=== PATIENT | male | born 1960 | race Two or more races ===

== ENCOUNTER 2020-09-14 12:31 | Inpatient (IN) | payer MEDICAID ==
[~2020-09-14] VITALS: Ht 165.1 cm; Wt 54.9 kg
--- NOTE | 2020-09-14 13:30 | NUR ---
came to er complaints of cough x 3 days chest pain while coughing with shortness of breath
[2020-09-14 13:57] VITALS: BP 120/71
[2020-09-14 14:03] LABS: BASOPHILS % (AUTO) 0.2 % (0.0-2.0); EOSINOPHILS % (AUTO) 0.1 % (0.0-3.0); HEMATOCRIT 29.8 % (42.0-52.0); HEMOGLOBIN 9.7 G/DL (14.2-18.0); MEAN CORPUSCULAR VOLUME 91 FL (80-99); MONOCYTES % (AUTO) 8.8 % (1.0-10.0); NEUTROPHILS % (AUTO) 74.9 % (45.0-75.0); PLATELET COUNT 172 K/UL (150-450); RED BLOOD COUNT 3.28 M/UL (4.70-6.10); RED CELL DISTRIBUTION WIDTH 14.7 % (11.6-14.8); WHITE BLOOD COUNT 6.3 K/UL (4.8-10.8)
[2020-09-14 14:12] LABS: ANION GAP 9 mmol/L (5-15); BLOOD UREA NITROGEN 17 mg/dL (7-18); CALCIUM 7.9 MG/DL (8.5-10.1); CARBON DIOXIDE 23 MMOL/L (21-32); CHLORIDE 99 MMOL/L (98-107); CREATININE 0.9 MG/DL (0.55-1.30); POTASSIUM 3.9 MMOL/L (3.5-5.1); SODIUM 131 MMOL/L (136-145)
[2020-09-14] MEDS ORDERED: Vancomycin 1.5gm/300ml Premix 300 ML IVPB ONE (14:15)
[2020-09-14] MEDS ORDERED: Unasyn 3gm Inj IVPB ONE (14:15)
[2020-09-14 14:21] LABS: ALANINE AMINOTRANSFERASE 26 U/L (12-78); ALBUMIN/GLOBULIN RATIO 0.3 (1.0-2.7); ALKALINE PHOSPHATASE 136 U/L (46-116); ASPARTATE AMINO TRANSFERASE 82 U/L (15-37); BILIRUBIN,TOTAL 0.6 MG/DL (0.2-1.0)
--- NOTE | 2020-09-14 14:30 | NUR ---
iv infusing meds given as orderd
[2020-09-14] MEDS ORDERED: Omnipaque 350 100ml vial INJ PRN (15:00)
[2020-09-14] MEDS ORDERED: Enoxaparin 60mg Inj SUBQ SCH (15:00)
--- NOTE | 2020-09-14 15:04 | Diagnostic Imaging Report ---
Indication: Shortness of breath Technique: One view of the chest Comparison: none Findings: There is a large left pleural effusion. There is there is compressive atelectasis and possibly some infiltrate in the aerated left lung. The right lung pleural space are clear. The left heart border is obscured, heart size indeterminate. Impression: Large left pleural effusion
--- NOTE | 2020-09-14 15:34 | Emergency Room Report ---
History of Present Illness General Chief Complaint: Upper Respiratory Illness Source: Patient Present Illness HPI 59-year-old male with history of type 2 diabetes currently not controlled medication here complaining of 2 weeks of continuous cough and shortness of breath. Patient reports that for the past 2 months he has been experiencing hiccups and some chest pains and the past 2 weeks he has been coughing and has had multiple bouts of nonbloody diarrhea. Patient arrives satting 90% on room air. Denies tobacco smoker history of tobacco smoke. Denies other drug use. Has not taken medication for symptom relief. Has not been tested for coronavirus. 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 Patient History Past Medical History: see triage record Past Surgical History: none Pertinent Family History: none Immunizations: UTD Reviewed Nursing Documentation: PMH: Agreed; PSxH: Agreed Nursing Documentation-PMH Past Medical History: No Stated History Review of Systems All Other Systems: negative except mentioned in HPI Physical Exam Vital Signs Date Time Temp Pulse Resp B/P (MAP) Pulse Ox O2 Delivery O2 Flow Rate FiO2 09/14/20 12:56 98.2 110 21 120/71 (87) 90 Sp02 EP Interpretation: abnormal - O2 sat 90% room air General Appearance: mild distress Head: normocephalic, atraumatic Eyes: bilateral eye normal inspection, bilateral eye PERRL ENT: no angioedema Neck: full range of motion, supple/symm/no masses Respiratory: no respiratory distress, no retraction, no accessory muscle use Cardiovascular #1: no gallop, no murmur Gastrointestinal: soft, no mass Genitourinary: no CVA tenderness Musculoskeletal: back normal, no calf tenderness Neurologic: alert, motor strength/tone normal, oriented x3, sensory intact, responsive, speech normal Psychiatric: judgement/insight normal, memory normal, mood/affect normal, no suicidal/homicidal ideation Skin: no rash Lymphatic: no adenopathy Procedures Critical Care Time Critical Care Time Total critical care time; approximately 31 minutes. Due to a high probability of clinically significant, life threatening deterioration, the patient required my highest level of preparedness to intervene emergently and I personally spent this critical care time directly and personally managing the patient. This critical care time included obtaining a history; examining the patient; pulse oximetry; ordering and reviewing of studies; arranging urgent treatment with development of a management plan; evaluation of patient's response to treatment; frequent reassessment; and, discussions with other providers. This critical care time was performed to assess and manage the high probability of imminent, life-threatening deterioration that could result in multiorgan failure it was exclusive of separate billable procedures and treating other patients and teaching time. Please see MDM section and the rest of the note for further in formation on patient assessment and treatment. Medical Decision Making PA Attestation All diagnosis and treatment plans were discussed and reviewed by my supervising physician Dr. Hernandez Diagnostic Impression: Primary Impression: Hypoxia Additional Impressions: Pleural effusion Coronavirus infection ER Course 59-year-old male with history of type 2 diabetes currently not controlled medication here complaining of 2 weeks of continuous cough and shortness of breath. Patient reports that for the past 2 months he has been experiencing hiccups and some chest pains and the past 2 weeks he has been coughing and has had multiple bouts of nonbloody diarrhea. Patient arrives satting 90% on room air. Denies tobacco smoker history of tobacco smoke. Denies other drug use. Has not taken medication for symptom relief. Has not been tested for coronavirus. Ddx considered but are not limited to: bronchitis, PNA, URI viral, bacterial brochitis, coronavirus, pleural effusion Vital signs: are WNL, pt. is afebrile H&PE are most consistent with: Hypoxia, pleural effusion, coronavirus ORDERS: ER Covid order set, CTA chest ED INTERVENTIONS: Unasyn, vancomycin, dexamethasone, Lovenox Patient was admitted with diagnosis of hypoxia, pleural effusion, coronavirus to Dr Alonso under supervision of Dr.: Hernandez pt stable at time of admission EKG Diagnostic Results Rate: tachycardiac Rhythm: other - Tachycardia ST Segments: no acute changes Other Impression No acute ST changes ASA given to the pt in ED: No Chest X-Ray Diagnostic Results Chest X-Ray Diagnostic Results : Chest X-Ray Ordered: Yes # of Views/Limited/Complete: 1 View Indication: Shortness of Breath EP Interpretation: Yes PA Xray: Interpretation reviewed, by supervising MD, and agrees with findings. Interpretation: other - Left-sided pleural effusion Impression: Other - Left-sided pleural effusion Electronically Signed by: Sachin Wyatt PA-C CT/MRI/US Diagnostic Results CT/MRI/US Diagnostic Results : Imaging Test Ordered: CTA chest Impression Findings: Pulmonary arteries are adequately opacified. No definite intraluminal filling defects or other findings to suggest acute pulmonary embolus are evident. No evidence of pulmonary arterial dilatation or right ventricular dilatation. No evidence of thoracic aortic aneurysm or dissection. Normal caliber and branching anatomy of the great neck vessels. There is a massive left pleural effusion. This demonstrates marked thickening and some enhancement of the of the pleural surface. There is a significant nondependent component anteriorly. This results in compressive atelectasis of significant portions of the left lower lobe and some of the left upper lobe. Multiple focal groundglass opacities are seen scattered throughout the right lung in a mostly peripheral distribution. No right pleural effusion is demonstrated. No right lung mass demonstrated. Prominent but not frankly enlarged right hilar nodes are demonstrated. Numerous prominent mediastinal nodes are demonstrated, particularly numerous in the prevascular space. The esophagus is unremarkable. The thyroid is unremarkable. Included upper abdominal anatomy demonstrates hepatic surface nodularity. Impression: No definite evidence of acute pulmonary embolus or other acute thoracic vascular pathology. Multifocal groundglass opacities in the right lung. This is concerning for multifocal pneumonia, likely viral Massive left pleural effusion. Presumably chronic and likely loculated, given the presence of considerable pleural thickening Considerable left lung parenchymal atelectasis related to the above Numerous and prominent mediastinal lymph nodes may indicate lymphadenopathy. Appearance nonspecific as regards etiology Evidence of hepatic cirrhosis Last Vital Signs Date Time Temp Pulse Resp B/P (MAP) Pulse Ox O2 Delivery O2 Flow Rate FiO2 09/14/20 13:57 98.2 21 120/71 90 09/14/20 13:56 110 Disposition: ADMITTED INPATIENT Condition: Serious Referrals: NOT CHOSEN KASANDRA/,REFERRING (PCP) Sachin Frazier Sep 14, 2020 15:34
--- NOTE | 2020-09-14 15:42 | NUR ---
to ct scan via [facility]
--- NOTE | 2020-09-14 16:36 | Diagnostic Imaging Report ---
ndication: Cough Technique: IV administration nonionic contrast. Spiral acquisitions obtained from the lung bases to the lung apices. Multiplanar and 3-D reconstructions were generated on an integrated workstation. Total dose length product 193 mGycm. CTDIvol(s) 1, 15, 5 mGy. Dose reduction achieved using automated exposure control Comparison: none Findings: Pulmonary arteries are adequately opacified. No definite intraluminal filling defects or other findings to suggest acute pulmonary embolus are evident. No evidence of pulmonary arterial dilatation or right ventricular dilatation. No evidence of thoracic aortic aneurysm or dissection. Normal caliber and branching anatomy of the great neck vessels. There is a massive left pleural effusion. This demonstrates marked thickening and some enhancement of the of the pleural surface. There is a significant nondependent component anteriorly. This results in compressive atelectasis of significant portions of the left lower lobe and some of the left upper lobe. Multiple focal groundglass opacities are seen scattered throughout the right lung in a mostly peripheral distribution. No right pleural effusion is demonstrated. No right lung mass demonstrated. Prominent but not frankly enlarged right hilar nodes are demonstrated. Numerous prominent mediastinal nodes are demonstrated, particularly numerous in the prevascular space. The esophagus is unremarkable. The thyroid is unremarkable. Included upper abdominal anatomy demonstrates hepatic surface nodularity. Impression: No definite evidence of acute pulmonary embolus or other acute thoracic vascular pathology. Multifocal groundglass opacities in the right lung. This is concerning for multifocal pneumonia, likely viral Massive left pleural effusion. Presumably chronic and likely loculated, given the presence of considerable pleural thickening Considerable left lung parenchymal atelectasis related to the above Numerous and prominent mediastinal lymph nodes may indicate lymphadenopathy. Appearance nonspecific as regards etiology Evidence of hepatic cirrhosis The CT scanner at [facility] is accredited by the [employer] and the scans are performed using protocols designed to limit radiation exposure to as low as reasonably achievable to attain images of sufficient resolution adequate for diagnostic evaluation.
[2020-09-14 19:24] VITALS: BP 132/75
--- NOTE | 2020-09-14 21:35 | NUR ---
NURSE NOTES: Called and left Addendum: 09/15/20 at 0645 by Adelso Coates RN Left a message to Dr. Alonso regarding Remdesevir medication needing and ID consult and made him aware about patient's sodium level at 131.
--- NOTE | 2020-09-14 21:35 | NUR ---
NURSE NOTES: Patient received from RONAL iDckson. Patient is awake, alert and oriented x 3. Patient arrived on the floor with no problem. Patient is able to ambulate but showed some weakness. Patient is noted to have no IV access, will attempt to reinsert another IV. Patient is on 2 L nasal cannula satting at 99% with no signs of acute respiratory distress noted. Patient has no complaints as of the moment. Bed is in the lowest position and locked, call light within reach. Will continue to monitor.
[2020-09-14] MEDS ORDERED: guaiFENesin /DM 10ml syrup ORAL PRN (22:15)
[2020-09-14] MEDS ORDERED: Albuterol 90mcg Inhaler 8gm INH PRN (22:15)
[2020-09-14] MEDS ORDERED: DiphenhydrAMINE 50mg/ml Inj IVP PRN (22:15)
[2020-09-14] MEDS ORDERED: Ipratropium Bromide Inhaler INH PRN (22:15)
[2020-09-14] MEDS ORDERED: Azithromycin 250mg tab ORAL ONE (23:30)
[2020-09-15] VITALS: BP 108/62
[2020-09-15 04:00] VITALS: BP 136/68
[2020-09-15] MEDS: NovoLOG Insulin Flexpen SUBQ SCH ×4 (06:02→22:24)
--- NOTE | 2020-09-15 07:35 | NUR ---
NURSE HAND-OFF REPORT: Important Events on Shift:[Patient sodium level is at 131, D-Dimer elevated at 5.2, notified MD. Need ID consult for remdesiver, notified MD] Patient Status: [Stable] Diet: [Regular diet] Pending Orders: [] Pending Results/Labs:[] Pending MD notification:[] Latest Vital Signs: Temperature 96.3 , Pulse 76 , B/P 136 /68 , Respiratory Rate 18 , O2 SAT 97 , , O2 Flow Rate 2.0 . Vital Sign Comment: [] EKG Rhythm: Sinus Rhythm Rhythm change?: N MD Notified?: - MD Response: Latest Harrell Fall Score: 30 Fall Risk: Medium Risk Safety Measures: Call light Within Reach, Bed Alarm , Side Rails Side Rails x1, Bed position Low and Locked. Fall Precautions: Yellow Gown Report given to [RONAL Dickson].
--- NOTE | 2020-09-15 07:38 | NUR ---
CASE MANAGEMENT:REVIEW 59 YR OLD MALE PRESENTED TO ER CC; SOB,HICCUPS AND COUGH SI: COVID PNA. LRG LT PLEURAL EFFUSION 98.3 110 21 120/71 90% ON RA D-DIMER+5.24 IS: IV DECADRON IV AMPICILLIN IV VANCOMYCIN CTA CHEST CHEST XRAY : TO TELEMETRY UNIT DCP: FROM HOME
--- NOTE | 2020-09-15 07:40 | NUR ---
NURSE NOTES: Received report from RONAL Darden. Patient is awake, alert and oriented x 3, ambulatory, and able to make needs known. Patient is able to ambulate but showed some weakness. Patient on NC 2L/M saturating well. IV site patent and intact. PEr previous shift primary MD has been notified regarding sodium and d-dimer level. monitoring engineer in place. Patient has been SR throughout the previous shift. Previous shift endorsed to get ID consult for remdesivir order. Patient has no complaints of pain as of the moment. RN instructed patient to use call light for assistance. Bed is locked and placed in lowest position. Call light within reach. Will continue to monitor
[2020-09-15 08:00] VITALS: BP 128/70
[2020-09-15] MEDS: guaiFENesin ER 600mg tab ORAL SCH ×2 (08:41→17:03)
[2020-09-15] MEDS: Azithromycin 250mg tab ORAL SCH (08:41)
[2020-09-15] MEDS: Enoxaparin 60mg Inj SUBQ SCH (08:41)
[2020-09-15] MEDS: Ascorbic Acid 500mg tab ORAL SCH (08:41)
[2020-09-15] MEDS: Zinc Sulfate 220mg ORAL SCH (08:41)
[2020-09-15] MEDS: Docusate 250mg cap ORAL SCH (08:42)
[2020-09-15] MEDS: Vitamin D 400 units TAB ORAL SCH (08:42)
--- NOTE | 2020-09-15 08:55 | NUR ---
NURSE NOTES: Rn called and spoke with Dr. Bauer regarding the need for ID consult to start remdesivir, Dr. bauer is aware and will put in ID consult himself. Rn also made primary aware of patients latest sodium level of 131 and d-dimer 5.24.
[2020-09-15 09:05] LABS: BASOPHILS % (AUTO) 0.1 % (0.0-2.0); HEMATOCRIT 33.1 % (42.0-52.0); HEMOGLOBIN 10.9 G/DL (14.2-18.0); LYMPHOCYTES % (AUTO) 18.3 % (20.0-45.0); MEAN CORPUSCULAR VOLUME 90 FL (80-99); NEUTROPHILS % (AUTO) 75.5 % (45.0-75.0); PLATELET COUNT 206 K/UL (150-450); RED BLOOD COUNT 3.66 M/UL (4.70-6.10); RED CELL DISTRIBUTION WIDTH 14.4 % (11.6-14.8); WHITE BLOOD COUNT 5.1 K/UL (4.8-10.8)
[2020-09-15 09:41] LABS: ALANINE AMINOTRANSFERASE 20 U/L (12-78); ALBUMIN 1.9 G/DL (3.4-5.0); ALBUMIN/GLOBULIN RATIO 0.3 (1.0-2.7); ALKALINE PHOSPHATASE 113 U/L (46-116); ANION GAP 8 mmol/L (5-15); ASPARTATE AMINO TRANSFERASE 69 U/L (15-37); BILIRUBIN,TOTAL 0.5 MG/DL (0.2-1.0); BLOOD UREA NITROGEN 18 mg/dL (7-18); CALCIUM 8.3 MG/DL (8.5-10.1); CARBON DIOXIDE 21 MMOL/L (21-32); CHLORIDE 105 MMOL/L (98-107); CREATININE 0.7 MG/DL (0.55-1.30); FERRITIN 1278 NG/ML (8-388); LACTATE DEHYDROGENASE 248 U/L (81-234); POTASSIUM 4.2 MMOL/L (3.5-5.1); SODIUM 134 MMOL/L (136-145)
--- NOTE | 2020-09-15 11:39 | History and Physical ---
History of Present Illness General Date patient seen: Sep 15, 2020 Time patient seen: 10:00 Reason for Hospitalization: Upper Respiratory Illness Present Illness HPI 59 years old male with past medical history of diabetes mellitus type 2, presented with complaint of two weeks of continuous dry cough and intermittent shortness of breath. Patient also reported some chest pain with cough and multiple bouts of nonbloody diarrhea. Patient denied COPD /asthma He denied smoking. He denied other drug use. Upon evaluation rapid COVID-19 was positive. Vital signs revealed tachycardia , pulse ox was 90% on RA. Chest x-ray revealed large left pleural effusion. There was compressive atelectasis and possibly some infiltrate in the aerated left lung. The right lung pleural space are clear. CTA of the chest revealed no evidence of acute pulmonary emboli or other acute thoracic vascular pathology. Multifocal ground-glass opacity in the right lung, concerning for multifocal pneumonia. Left lung parenchymal atelectasis probably related to the above. Numerous and prominent mediastinal lymph nodes may indicate lymphadenopathy . Evidence of hepatic cirrhosis No leukocytosis. Hemoglobin 9.7, hematocrit 29.8, platelet count 172. Lactic acid 1.7 Ferritin 1278, LDH 248, CRP 8.3 , D-dimer 5.22. Sodium 131 , stable other electrolytes. Glucose 108. AST 82 ,ALT 26 . Albumin 1.9 In emergency department patient received Lovenox, empiric antibiotic , steroids and admitted for further management. Allergies: Coded Allergies: No Known Allergies (Unverified , 09/14/20) COVID-19 Screening Contact w/high risk pt: No Experienced COVID-19 symptoms?: Yes Coronavirus symptoms experienc: Shortness of Breath Patient History Healthcare decision maker Resuscitation status Advanced Directive on File Review of Systems Constitutional: Reports: weakness Eye: Reports: no symptoms ENT: Reports: no symptoms Respiratory: Reports: see HPI Cardiovascular: Reports: see HPI Gastrointestinal: Reports: see HPI Genitourinary: Reports: no symptoms Musculoskeletal: Reports: no symptoms Skin: Reports: no symptoms Psychiatric: Reports: no symptoms Neurological: Reports: no symptoms Endocrine: Reports: other - DM Hematologic/Lymphatic: Reports: anemia Physical Exam Last 24 Hour Vital Signs Date Time Temp Pulse Resp B/P (MAP) Pulse Ox O2 Delivery O2 Flow Rate FiO2 09/15/20 09:00 Nasal Cannula 2.0 09/15/20 08:00 69 09/15/20 08:00 97.0 78 17 128/70 (89) 98 09/15/20 04:00 96.3 76 18 136/68 (90) 97 09/15/20 04:00 70 09/15/20 00:00 75 09/15/20 00:00 96.6 76 18 108/62 (77) 97 09/14/20 22:07 Nasal Cannula 2.0 09/14/20 19:24 98.5 86 21 132/75 90 09/14/20 13:57 98.2 21 120/71 90 09/14/20 13:56 110 21 09/14/20 12:56 98.2 110 21 120/71 (87) 90 Intake and Output 09/14/20 09/15/20 19:00 07:00 Intake Total 250 ml Output Total 400 ml Balance -150 ml Intake Oral 250 ml Output Urine Total 400 ml # Voids 1 Laboratory Tests Test 09/14/20 13:30 09/15/20 06:01 09/15/20 08:30 09/15/20 11:14 White Blood Count 6.3 K/UL (4.8-10.8) 5.1 K/UL (4.8-10.8) Red Blood Count 3.28 M/UL (4.70-6.10) L 3.66 M/UL (4.70-6.10) L Hemoglobin 9.7 G/DL (14.2-18.0) L 10.9 G/DL (14.2-18.0) L Hematocrit 29.8 % (42.0-52.0) L 33.1 % (42.0-52.0) L Mean Corpuscular Volume 91 FL (80-99) 90 FL (80-99) Mean Corpuscular Hemoglobin 29.6 PG (27.0-31.0) 29.6 PG (27.0-31.0) Mean Corpuscular Hemoglobin Concent 32.5 G/DL (32.0-36.0) 32.8 G/DL (32.0-36.0) Red Cell Distribution Width 14.7 % (11.6-14.8) 14.4 % (11.6-14.8) Platelet Count 172 K/UL (150-450) 206 K/UL (150-450) Mean Platelet Volume 6.4 FL (6.5-10.1) L 6.5 FL (6.5-10.1) Neutrophils (%) (Auto) 74.9 % (45.0-75.0) 75.5 % (45.0-75.0) H Lymphocytes (%) (Auto) 16.0 % (20.0-45.0) L 18.3 % (20.0-45.0) L Monocytes (%) (Auto) 8.8 % (1.0-10.0) 6.0 % (1.0-10.0) Eosinophils (%) (Auto) 0.1 % (0.0-3.0) 0.0 % (0.0-3.0) Basophils (%) (Auto) 0.2 % (0.0-2.0) 0.1 % (0.0-2.0) D-Dimer 5.24 mg/L FEU (0.00-0.49) H Sodium Level 131 MMOL/L (136-145) L 134 MMOL/L (136-145) L Potassium Level 3.9 MMOL/L (3.5-5.1) 4.2 MMOL/L (3.5-5.1) Chloride Level 99 MMOL/L (98-107) 105 MMOL/L (98-107) Carbon Dioxide Level 23 MMOL/L (21-32) 21 MMOL/L (21-32) Anion Gap 9 mmol/L (5-15) 8 mmol/L (5-15) Blood Urea Nitrogen 17 mg/dL (7-18) 18 mg/dL (7-18) Creatinine 0.9 MG/DL (0.55-1.30) 0.7 MG/DL (0.55-1.30) Estimat Glomerular Filtration Rate > 60 mL/min (>60) > 60 mL/min (>60) Glucose Level 108 MG/DL (74-106) H 132 MG/DL (74-106) H Calcium Level 7.9 MG/DL (8.5-10.1) L 8.3 MG/DL (8.5-10.1) L Total Bilirubin 0.6 MG/DL (0.2-1.0) 0.5 MG/DL (0.2-1.0) Aspartate Amino Transf (AST/SGOT) 82 U/L (15-37) H 69 U/L (15-37) H Alanine Aminotransferase (ALT/SGPT) 26 U/L (12-78) 20 U/L (12-78) Alkaline Phosphatase 136 U/L (46-116) H 113 U/L (46-116) Troponin I 0.006 ng/mL (0.000-0.056) Total Protein 8.7 G/DL (6.4-8.2) H 8.6 G/DL (6.4-8.2) H Albumin 2.0 G/DL (3.4-5.0) L 1.9 G/DL (3.4-5.0) L Globulin 6.7 g/dL 6.7 g/dL Albumin/Globulin Ratio 0.3 (1.0-2.7) L 0.3 (1.0-2.7) L POC Whole Blood Glucose 139 MG/DL (74-106) H 146 MG/DL (74-106) H Erythrocyte Sedimentation Rate 112 MM/HR (0-20) H Hemoglobin A1c 6.2 % (4.3-6.0) H Lactic Acid Level 1.70 mmol/L (0.4-2.0) Ferritin 1278 NG/ML (8-388) H Lactate Dehydrogenase 248 U/L (81-234) H C-Reactive Protein, Quantitative 8.3 mg/dL (0.00-0.90) H Carcinoembryonic Antigen Pending Interleukin 6 (IL-6) Pending Calcitonin Level Pending Thyroid Stimulating Hormone (TSH) 1.819 uiU/mL (0.358-3.740) Microbiology Date/Time Source Procedure Growth Status 09/14/20 13:30 Nasopharynx SARS-CoV-2 RdRp Gene Assay - Final Complete Height (Feet): 5 Height (Inches): 5.00 Weight (Pounds): 121 Medications Current Medications Medications (Trade) Dose Ordered Sig/Polo Route PRN Reason Start Time Stop Time Status Last Admin Dose Admin Acetaminophen (Tylenol) 650 mg Q4H PRN ORAL Mild Pain (Pain Scale 1-3) 09/14/20 22:15 10/14/20 22:14 Acetaminophen (Tylenol) 650 mg Q4H PRN ORAL Temp >100.5 09/14/20 22:15 10/14/20 22:14 Albuterol Sulfate (Proventil MDI) 2 puff Q4H PRN INH Shortness of Breath 09/14/20 22:15 12/13/20 22:14 Ascorbic Acid (Vitamin C) 500 mg DAILY ORAL 09/15/20 09:00 10/15/20 08:59 09/15/20 08:41 Azithromycin (Zithromax) 250 mg DAILY ORAL 09/15/20 09:00 09/18/20 09:01 09/15/20 08:41 Dexamethasone Sodium Phosphate (Decadron 10mg/ ml Inj) 6 mg DAILY@1400 IV 09/15/20 14:00 09/24/20 14:01 Dextrose (Dextrose 50%) 25 ml Q30M PRN IV Hypoglycemia 09/14/20 23:00 12/13/20 22:59 Dextrose (Dextrose 50%) 50 ml Q30M PRN IV Hypoglycemia 09/14/20 23:00 12/13/20 22:59 Diphenhydramine HCl (Benadryl) 25 mg EVERY 4 HOURS PRN IVP Itching 09/14/20 22:15 10/14/20 22:14 Docusate Sodium (Colace) 250 mg DAILY ORAL 09/15/20 09:00 10/15/20 08:59 09/15/20 08:42 Enoxaparin Sodium (Lovenox) 60 mg DAILY SUBQ 09/15/20 09:00 12/14/20 08:59 09/15/20 08:41 Guaifenesin (Mucinex ER) 600 mg TWICE A DAY ORAL 09/15/20 09:00 12/14/20 08:59 09/15/20 08:41 Guaifenesin/ Codeine Phosphate (Robitussin with codeine) 5 ml EVERY 4 HOURS PRN ORAL For Cough 09/14/20 22:15 10/14/20 22:14 Guaifenesin/ Dextromethorphan (Robitussin DM Syrup) 5 ml Q4H PRN ORAL For Cough 09/14/20 22:15 12/13/20 22:14 Insulin Aspart (NovoLOG) BEFORE MEALS AND HS SUBQ 09/15/20 06:30 12/14/20 06:29 Iohexol (Omnipaque 350 100ml) 100 ml NOW PRN INJ Radiology Procedure 09/14/20 15:00 09/16/20 14:59 Ipratropium [place] (Atrovent Inh) 1 puffs EVERY 4 HOURS PRN INH Shortness of Breath 09/14/20 22:15 10/14/20 22:14 Multivitamins (Multivitamins) 1 tab DAILY ORAL 09/15/20 09:00 10/15/20 08:59 09/15/20 08:41 Ondansetron HCl (Zofran) 4 mg EVERY 4 HOURS PRN IVP Nausea & Vomiting 09/14/20 22:15 10/14/20 22:14 Vitamin D (Vitamin D) 400 unit DAILY ORAL 09/15/20 09:00 10/15/20 08:59 09/15/20 08:42 Zinc Sulfate (Zinc Sulfate) 220 mg DAILY ORAL 09/15/20 09:00 12/14/20 08:59 09/15/20 08:41 Assessment/Plan Assessment/Plan: ASSESSMENT COVID PNA Hypoxia Large left effusion, possibly loculated, with associated compressive atelectasis Lymphadenopathy r/o possible malignancy Anemia Diarrhea Elevated AST, likely due to liver cirrhosis Hypoalbuminemia DM PLAN OF CARE tele Date of sx onset: 2 wks prior to presentation to ED Positive test: 09/14 rapid COVID 19 O2 NC HFA Dex Day# 2 ( 09/14 -) REM -> per ID recs, elevated AST DVT PPX: Lovenox D dimer 5.24 Trend CRP 8.3 - CTA-> no PE, biut large left ( likely loculated) pl effusion will try to attempt tap abx per ID recs ( consult pending)m currently on Azithro only ESR high a/tussive ptn supportive care : vitamin D, A, , zinc anemia w/up, CEA, stool OB monitor HH with goal to keep Hgb > 7 trend LFT BS management with SSI GI prophyalxis Monitor volumes and renal function Fup with consultants recs FC Discuss GOC case discussed and evaluated by supervising physician Maya Real NP Sep 15, 2020 11:39
[2020-09-15 11:57] VITALS: BP 120/63
--- NOTE | 2020-09-15 12:09 | Consultation ---
History of Present Illness General Date patient seen: Sep 15, 2020 Reason for Hospitalization: Upper Respiratory Illness Present Illness HPI This is a very pleasant 59-year-old male who presented to [facility] with shortness of breath and cough for approximately 2 weeks Covid positive identified with abnormal labs on CT and x-ray abnormal findings indicative of large massive pleural effusion surgery called to evaluate and assist with care patient seen, patient evaluated, chart reviewed. States he still has his cough but respiratory is otherwise stable and unchanged. Denies any abdominal pain. States he does have some chest discomfort. Allergies: Coded Allergies: No Known Allergies (Unverified , 09/14/20) COVID-19 Screening Contact w/high risk pt: No Experienced COVID-19 symptoms?: Yes Coronavirus symptoms experienc: Shortness of Breath Patient History History Provided By: Patient, Medical Record, PMD Healthcare decision maker Resuscitation status Advanced Directive on File Past Medical/Surgical History Past Medical/Surgical History: (1) Pleural effusion (2) Hypoxia (3) Coronavirus infection Review of Systems Review of Symptoms General ROS: no weight loss or fever Psychological ROS: no depression or mood changes, no memory loss Ophthalmic ROS: no visual changes or eye irritation ENT ROS: no nasal congestion, hearing loss, dizziness Allergy and Immunology ROS: no allergic symptoms or urticaria Hematological and Lymphatic ROS: no swollen glands, unusual bleeding or bruising Endocrine ROS: no polyuria, polydipsia, weight changes, temperature intolerance Respiratory ROS: no cough, shortness of breath, or wheezing Cardiovascular ROS: no chest pain or dyspnea on exertion Gastrointestinal ROS: denies abdominal pain, bright red blood in stool. Musculoskeletal ROS: no myalgias or arthralgias Neurological ROS: no TIA or stroke symptoms Dermatological ROS: no new or changing skin lesions, rashes or pruritis Physical Exam Physical Exam General appearance: alert, cooperative, no distress, appears stated age Head: Normocephalic, without obvious abnormality, atraumatic Eyes: conjunctivae/corneas clear. PERRL, EOM's intact. Fundi benign Throat: Lips, mucosa, and tongue normal. Teeth and gums normal Neck: supple, symmetrical, trachea midline, no adenopathy, thyroid: not enlarged, symmetric, no tenderness/mass/nodules, no carotid bruit and no JVD Lungs: Decreased to auscultation bilaterally Heart: regular rate and rhythm, S1, S2 normal, no murmur, click, rub or gallop Abdomen: soft, non-tender. Bowel sounds normal. No masses, no organomegaly Extremities: extremities normal, atraumatic, no cyanosis or edema Pulses: 2+ and symmetric Skin: Skin color, texture, turgor normal. No rashes or lesions Neurologic: Grossly normal Last 24 Hour Vital Signs Date Time Temp Pulse Resp B/P (MAP) Pulse Ox O2 Delivery O2 Flow Rate FiO2 09/15/20 11:57 97.3 75 17 120/63 (82) 96 09/15/20 09:00 Nasal Cannula 2.0 09/15/20 08:00 69 09/15/20 08:00 97.0 78 17 128/70 (89) 98 09/15/20 04:00 96.3 76 18 136/68 (90) 97 09/15/20 04:00 70 09/15/20 00:00 75 09/15/20 00:00 96.6 76 18 108/62 (77) 97 09/14/20 22:07 Nasal Cannula 2.0 09/14/20 19:24 98.5 86 21 132/75 90 09/14/20 13:57 98.2 21 120/71 90 09/14/20 13:56 110 21 09/14/20 12:56 98.2 110 21 120/71 (87) 90 Intake and Output 09/14/20 09/15/20 19:00 07:00 Intake Total 250 ml Output Total 400 ml Balance -150 ml Intake Oral 250 ml Output Urine Total 400 ml # Voids 1 Laboratory Tests Test 09/14/20 13:30 09/15/20 06:01 09/15/20 08:30 09/15/20 11:14 White Blood Count 6.3 K/UL (4.8-10.8) 5.1 K/UL (4.8-10.8) Red Blood Count 3.28 M/UL (4.70-6.10) L 3.66 M/UL (4.70-6.10) L Hemoglobin 9.7 G/DL (14.2-18.0) L 10.9 G/DL (14.2-18.0) L Hematocrit 29.8 % (42.0-52.0) L 33.1 % (42.0-52.0) L Mean Corpuscular Volume 91 FL (80-99) 90 FL (80-99) Mean Corpuscular Hemoglobin 29.6 PG (27.0-31.0) 29.6 PG (27.0-31.0) Mean Corpuscular Hemoglobin Concent 32.5 G/DL (32.0-36.0) 32.8 G/DL (32.0-36.0) Red Cell Distribution Width 14.7 % (11.6-14.8) 14.4 % (11.6-14.8) Platelet Count 172 K/UL (150-450) 206 K/UL (150-450) Mean Platelet Volume 6.4 FL (6.5-10.1) L 6.5 FL (6.5-10.1) Neutrophils (%) (Auto) 74.9 % (45.0-75.0) 75.5 % (45.0-75.0) H Lymphocytes (%) (Auto) 16.0 % (20.0-45.0) L 18.3 % (20.0-45.0) L Monocytes (%) (Auto) 8.8 % (1.0-10.0) 6.0 % (1.0-10.0) Eosinophils (%) (Auto) 0.1 % (0.0-3.0) 0.0 % (0.0-3.0) Basophils (%) (Auto) 0.2 % (0.0-2.0) 0.1 % (0.0-2.0) D-Dimer 5.24 mg/L FEU (0.00-0.49) H Sodium Level 131 MMOL/L (136-145) L 134 MMOL/L (136-145) L Potassium Level 3.9 MMOL/L (3.5-5.1) 4.2 MMOL/L (3.5-5.1) Chloride Level 99 MMOL/L (98-107) 105 MMOL/L (98-107) Carbon Dioxide Level 23 MMOL/L (21-32) 21 MMOL/L (21-32) Anion Gap 9 mmol/L (5-15) 8 mmol/L (5-15) Blood Urea Nitrogen 17 mg/dL (7-18) 18 mg/dL (7-18) Creatinine 0.9 MG/DL (0.55-1.30) 0.7 MG/DL (0.55-1.30) Estimat Glomerular Filtration Rate > 60 mL/min (>60) > 60 mL/min (>60) Glucose Level 108 MG/DL (74-106) H 132 MG/DL (74-106) H Calcium Level 7.9 MG/DL (8.5-10.1) L 8.3 MG/DL (8.5-10.1) L Total Bilirubin 0.6 MG/DL (0.2-1.0) 0.5 MG/DL (0.2-1.0) Aspartate Amino Transf (AST/SGOT) 82 U/L (15-37) H 69 U/L (15-37) H Alanine Aminotransferase (ALT/SGPT) 26 U/L (12-78) 20 U/L (12-78) Alkaline Phosphatase 136 U/L (46-116) H 113 U/L (46-116) Troponin I 0.006 ng/mL (0.000-0.056) Total Protein 8.7 G/DL (6.4-8.2) H 8.6 G/DL (6.4-8.2) H Albumin 2.0 G/DL (3.4-5.0) L 1.9 G/DL (3.4-5.0) L Globulin 6.7 g/dL 6.7 g/dL Albumin/Globulin Ratio 0.3 (1.0-2.7) L 0.3 (1.0-2.7) L POC Whole Blood Glucose 139 MG/DL (74-106) H 146 MG/DL (74-106) H Erythrocyte Sedimentation Rate 112 MM/HR (0-20) H Hemoglobin A1c 6.2 % (4.3-6.0) H Lactic Acid Level 1.70 mmol/L (0.4-2.0) Ferritin 1278 NG/ML (8-388) H Lactate Dehydrogenase 248 U/L (81-234) H C-Reactive Protein, Quantitative 8.3 mg/dL (0.00-0.90) H Carcinoembryonic Antigen Pending Interleukin 6 (IL-6) Pending Calcitonin Level Pending Thyroid Stimulating Hormone (TSH) 1.819 uiU/mL (0.358-3.740) Microbiology Date/Time Source Procedure Growth Status 09/14/20 13:30 Nasopharynx SARS-CoV-2 RdRp Gene Assay - Final Complete Height (Feet): 5 Height (Inches): 5.00 Weight (Pounds): 121 Medications Current Medications Medications (Trade) Dose Ordered Sig/Polo Route PRN Reason Start Time Stop Time Status Last Admin Dose Admin Acetaminophen (Tylenol) 650 mg Q4H PRN ORAL Mild Pain (Pain Scale 1-3) 09/14/20 22:15 10/14/20 22:14 Acetaminophen (Tylenol) 650 mg Q4H PRN ORAL Temp >100.5 09/14/20 22:15 10/14/20 22:14 Albuterol Sulfate (Proventil MDI) 2 puff Q4H PRN INH Shortness of Breath 09/14/20 22:15 12/13/20 22:14 Ascorbic Acid (Vitamin C) 500 mg DAILY ORAL 09/15/20 09:00 10/15/20 08:59 09/15/20 08:41 Azithromycin (Zithromax) 250 mg DAILY ORAL 09/15/20 09:00 09/18/20 09:01 09/15/20 08:41 Dexamethasone Sodium Phosphate (Decadron 10mg/ ml Inj) 6 mg DAILY@1400 IV 09/15/20 14:00 09/24/20 14:01 Dextrose (Dextrose 50%) 25 ml Q30M PRN IV Hypoglycemia 09/14/20 23:00 12/13/20 22:59 Dextrose (Dextrose 50%) 50 ml Q30M PRN IV Hypoglycemia 09/14/20 23:00 12/13/20 22:59 Diphenhydramine HCl (Benadryl) 25 mg EVERY 4 HOURS PRN IVP Itching 09/14/20 22:15 10/14/20 22:14 Docusate Sodium (Colace) 250 mg DAILY ORAL 09/15/20 09:00 10/15/20 08:59 09/15/20 08:42 Enoxaparin Sodium (Lovenox) 60 mg DAILY SUBQ 09/15/20 09:00 12/14/20 08:59 09/15/20 08:41 Guaifenesin (Mucinex ER) 600 mg TWICE A DAY ORAL 09/15/20 09:00 12/14/20 08:59 09/15/20 08:41 Guaifenesin/ Codeine Phosphate (Robitussin with codeine) 5 ml EVERY 4 HOURS PRN ORAL For Cough 09/14/20 22:15 10/14/20 22:14 Guaifenesin/ Dextromethorphan (Robitussin DM Syrup) 5 ml Q4H PRN ORAL For Cough 09/14/20 22:15 12/13/20 22:14 Insulin Aspart (NovoLOG) BEFORE MEALS AND HS SUBQ 09/15/20 06:30 12/14/20 06:29 09/15/20 11:37 Iohexol (Omnipaque 350 100ml) 100 ml NOW PRN INJ Radiology Procedure 09/14/20 15:00 09/16/20 14:59 Ipratropium [place] (Atrovent Inh) 1 puffs EVERY 4 HOURS PRN INH Shortness of Breath 09/14/20 22:15 10/14/20 22:14 Multivitamins (Multivitamins) 1 tab DAILY ORAL 09/15/20 09:00 10/15/20 08:59 09/15/20 08:41 Ondansetron HCl (Zofran) 4 mg EVERY 4 HOURS PRN IVP Nausea & Vomiting 09/14/20 22:15 10/14/20 22:14 Vitamin D (Vitamin D) 400 unit DAILY ORAL 09/15/20 09:00 10/15/20 08:59 09/15/20 08:42 Zinc Sulfate (Zinc Sulfate) 220 mg DAILY ORAL 09/15/20 09:00 12/14/20 08:59 09/15/20 08:41 Assessment/Plan Problem List: (1) Pleural effusion Assessment & Plan: 59 male Covid positive respiratory shortness of breath identified to have massive pleural effusion left. Potentially loculated collection is identified on CT. We will begin with thoracentesis interventional radiology May require a chest tube as needed If significantly loculated or empyema or worsening will discuss with thoracic surgery Continue IV antibiotics per infectious disease Thank you will follow the recommendations pulmonary arteries are adequately opacified. No definite intraluminal filling defects or other findings to suggest acute pulmonary embolus are evident. No evidence of pulmonary arterial dilatation or right ventricular dilatation. No evidence of thoracic aortic aneurysm or dissection. Normal caliber and branching anatomy of the great neck vessels. There is a massive left pleural effusion. This demonstrates marked thickening and some enhancement of the of the pleural surface. There is a significant nondependent component anteriorly. This results in compressive atelectasis of significant portions of the left lower lobe and some of the left upper lobe. Multiple focal groundglass opacities are seen scattered throughout the right lung in a mostly peripheral distribution. No right pleural effusion is demonstrated. No right lung mass demonstrated. Prominent but not frankly enlarged right hilar nodes are demonstrated. Numerous prominent mediastinal nodes are demonstrated, particularly numerous in the prevascular space. The esophagus is unremarkable. The thyroid is unremarkable. Included upper abdominal anatomy demonstrates hepatic surface nodularity. Impression: No definite evidence of acute pulmonary embolus or other acute thoracic vascular pathology. Multifocal groundglass opacities in the right lung. This is concerning for multifocal pneumonia, likely viral Massive left pleural effusion. Presumably chronic and likely loculated, given the presence of considerable pleural thickening Considerable left lung parenchymal atelectasis related to the above Numerous and prominent mediastinal lymph nodes may indicate lymphadenopathy. Appearance nonspecific as regards etiology Evidence of hepatic cirrhosis ICD Codes: J90 - Pleural effusion, not elsewhere classified SNOMED: 37224326 (2) Hypoxia ICD Codes: R09.02 - Hypoxemia SNOMED: 851090761 (3) Coronavirus infection Assessment & Plan: ++ as per ID and pulm ICD Codes: B34.2 - Coronavirus infection, unspecified SNOMED: 368410571 Roman Conway Sep 15, 2020 12:09
--- NOTE | 2020-09-15 13:20 | NUR ---
NURSE NOTES: RN called [facility] and followed up on blood draw for type and cross for BT. Per [employer] they will come up and draw it soon Addendum: 09/15/20 at 1542 by Randolph Jimenez RN wrong patient
--- NOTE | 2020-09-15 13:34 | Diagnostic Imaging Report ---
Indication: Reason For Exam: DVT Technique: Grayscale and duplex images of the bilateral lower extremity veins Comparison: No Findings: Bilaterally, grayscale and duplex images demonstrate no evidence of intraluminal thrombus. Normal phasic Doppler waveforms, demonstrating normal augmentation response and no evidence of valvular insufficiency. Greater saphenous vein(s) and tibial veins are patent. Normal compressibility. Impression: Negative for evidence of lower extremity deep venous thrombosis bilaterally
[2020-09-15] MEDS: dexAMETHasone 10mg/ml Inj IV SCH (13:51)
--- NOTE | 2020-09-15 15:00 | Consultation ---
DATE OF CONSULTATION: 09/15/2020 INFECTIOUS DISEASE CONSULTATION CONSULTING PHYSICIAN: Arian Varner MD PRIMARY ATTENDING PHYSICIAN: Nish Alonso MD REASON FOR CONSULTATION: COVID-19 disease. HISTORY OF PRESENT ILLNESS: This is a 59-year-old male admitted yesterday from home with cough and shortness of breath. The patient has also diarrhea. Symptoms are going on for two weeks. The patient had a positive COVID test in the hospital, never tested before. PAST MEDICAL HISTORY: Likely diabetes. ALLERGIES: No known drug allergies. MEDICATIONS: Getting dexamethasone, azithromycin, guaifenesin, multivitamin, enoxaparin, vitamin D, zinc, Colace, vitamin C, diphenhydramine, Robitussin, albuterol, and Zofran. SOCIAL HISTORY: He is single. He has history of drinking before. REVIEW OF SYSTEMS: Very limited. He has dry cough. PHYSICAL EXAMINATION: VITAL SIGNS: Temperature is 97.3, pulse 75, blood pressure is 120/63, and O2 saturation on 2 L oxygen is 96%. GENERAL APPEARANCE: He seems to have normal weight. HEAD AND NECK: Moist mucous membranes. [place] conjunctivae. HEART: Normal rate. LUNGS: Clear. ABDOMEN: Soft, nontender. EXTREMITIES: No edema. NEUROLOGIC: He is awake and alert. LABORATORY AND DIAGNOSTIC DATA: WBC 5.1, hemoglobin 10.9, hematocrit 33.1, and platelet is 206,000; lymphocyte count is low, 18.3%. Sodium 134, potassium 4.2, chloride 105, bicarb 21, BUN 18, creatinine 0.7, glucose 132. Hemoglobin A1c is slightly elevated at 6.2. LDH 248. Albumin 1.9. COVID test positive. The patient had CT angiogram of the chest and showed no pulmonary emboli; multifocal ground-glass opacities, likely multifocal pneumonia, likely viral; massive left pleural effusion; evidence of hepatic cirrhosis. IMPRESSION: COVID-19 disease. He has some hypoxemia, has radiographic evidence of cirrhosis, left pleural effusion, anemia, lymphocytopenia, and hyperglycemia. RECOMMENDATION: Continue dexamethasone and azithromycin. It seems that in the past 10 days, not eligible for receiving remdesivir. We will follow up the clinical course. At the end of my exam, I thank Dr. Alonso for involving me in the care of this patient. Arian Varner M.D. DR: ADENIKE JOB#: [id number] CC: [place]
[2020-09-15 16:00] VITALS: BP 130/70
[2020-09-15] MEDS ORDERED: Tubing IV Secondary IV ONE (17:52)
--- NOTE | 2020-09-15 19:18 | NUR ---
NURSE HAND-OFF REPORT: Important Events on Shift: US thoracentesis consent obtained Patient Status: stable Diet: regular Pending Orders: thoracentesis Pending Results/Labs:n/a Pending MD notification:n/a Latest Vital Signs: Temperature 97.6 , Pulse 73 , B/P 130 /70 , Respiratory Rate 18 , O2 SAT 97 , , O2 Flow Rate 2.0 . Vital Sign Comment: stable EKG Rhythm: Sinus Rhythm Rhythm change?: N MD Notified?: - MD Response: Latest [place]rell Fall Score: 30 Fall Risk: Medium Risk Safety Measures: Call light Within Reach, Bed Alarm , Side Rails Side Rails x2, Bed position Low and Locked. Fall Precautions: Yellow Gown Report given to RONAL Darden.
--- NOTE | 2020-09-15 19:20 | NUR ---
NURSE NOTES: Patient received from RONAL Dickson. Patient is awake, alert and oriented x 4. Patient is on 2 L Nasal cannula with no signs of acute respiratory distress noted. Patient is able to ambulate but may need assistance. Patient has a 20 gauge on his left AC, patent and flushed. Patient has no complaints as of the moment. Bed is in the lowest position and locked, call light within reach. Will continue to monitor.
[2020-09-15 20:00] VITALS: BP 104/72
[2020-09-15] MEDS ORDERED: Azithromycin 250mg tab ORAL SCH (23:00)
[2020-09-16] VITALS: BP 106/65
[2020-09-16 04:00] VITALS: BP 108/59
[2020-09-16 05:36] LABS: HEMATOCRIT 32.3 % (42.0-52.0); HEMOGLOBIN 10.4 G/DL (14.2-18.0); MEAN CORPUSCULAR VOLUME 93 FL (80-99); PLATELET COUNT 225 K/UL (150-450); RED BLOOD COUNT 3.47 M/UL (4.70-6.10); RED CELL DISTRIBUTION WIDTH 15.3 % (11.6-14.8); WHITE BLOOD COUNT 11.8 K/UL (4.8-10.8)
[2020-09-16 05:44] LABS: INR 1.1 (0.9-1.1)
[2020-09-16 06:06] LABS: ALANINE AMINOTRANSFERASE 24 U/L (12-78); ALBUMIN 1.9 G/DL (3.4-5.0); ALBUMIN/GLOBULIN RATIO 0.3 (1.0-2.7); ALKALINE PHOSPHATASE 134 U/L (46-116); ANION GAP 6 mmol/L (5-15); ASPARTATE AMINO TRANSFERASE 67 U/L (15-37); BILIRUBIN,TOTAL 0.5 MG/DL (0.2-1.0); BLOOD UREA NITROGEN 19 mg/dL (7-18); CALCIUM 8.2 MG/DL (8.5-10.1); CARBON DIOXIDE 24 MMOL/L (21-32); CHLORIDE 106 MMOL/L (98-107); CREATININE 0.7 MG/DL (0.55-1.30); POTASSIUM 4.2 MMOL/L (3.5-5.1); SODIUM 136 MMOL/L (136-145)
[2020-09-16 06:29] LABS: % IRON SATURATION 54 % (15-50); IRON 88 ug/dL (50-175); TOTAL IRON BINDING CAPACITY 163 ug/dL (250-450)
[2020-09-16] MEDS: NovoLOG Insulin Flexpen SUBQ SCH ×4 (06:29→21:00)
--- NOTE | 2020-09-16 07:26 | NUR ---
NURSE HAND-OFF REPORT: Important Events on Shift:[Stool OB still needed to be collected. US guided thoracentesis is scheduled] Patient Status: [Stable] Diet: [Regular diet, NPO for procedure] Pending Orders: [] Pending Results/Labs:[] Pending MD notification:[] Latest Vital Signs: Temperature 96.9 , Pulse 75 , B/P 108 /59 , Respiratory Rate 20 , O2 SAT 95 , , O2 Flow Rate 2.0 . Vital Sign Comment: [] EKG Rhythm: Sinus Rhythm Rhythm change?: N MD Notified?: - MD Response: Latest Harrell Fall Score: 30 Fall Risk: Medium Risk Safety Measures: Call light Within Reach, Bed Alarm , Side Rails Side Rails x2, Bed position Low and Locked. Fall Precautions: Yellow Socks Yellow Gown Report given to [].
--- NOTE | 2020-09-16 07:39 | NUR ---
NURSE NOTES: Pt received from Adelso RN. Pt in bed sleeping, bed low and locked, call light within reach. no distress noted.
--- NOTE | 2020-09-16 07:44 | NUR ---
CASE MANAGEMENT:REVIEW 09/16/20 SI: COVID PNA. ROSAURA INFILTRATES MASSIVE PLEURAL EFFUSION 96.9 67 20 108/59 95% ON 2L/NC WBC+11.8 H/H-10.4/32.3 GLUCOSE+135 IS: IV DECADRON QD AZITHROMYCIN PO QD LOVENOX SQ QD VIT D PO QD ZINC PO QD : TELEMETRY STATUS DCP: FROM HOME PLAN: THORACENTESIS ORDERED
[2020-09-16 08:00] VITALS: BP 115/77
[2020-09-16] MEDS: Enoxaparin 60mg Inj SUBQ SCH (09:00)
--- NOTE | 2020-09-16 09:54 | NUR ---
NURSE NOTES: Re held Gary pt to have thoracentesis today.
[2020-09-16] MEDS: Zinc Sulfate 220mg ORAL SCH (10:05)
[2020-09-16] MEDS: Ascorbic Acid 500mg tab ORAL SCH (10:05)
[2020-09-16] MEDS: Docusate 250mg cap ORAL SCH (10:05)
[2020-09-16] MEDS: guaiFENesin ER 600mg tab ORAL SCH ×2 (10:05→17:29)
[2020-09-16] MEDS: Vitamin D 400 units TAB ORAL SCH (10:05)
[2020-09-16] MEDS: Azithromycin 250mg tab ORAL SCH (10:05)
--- NOTE | 2020-09-16 10:53 | Infectious Diseases Prog Note ---
Assessment/Plan Assessment/Plan antibiotics : azithromycin A 1. covid 19 pneumonia on 2 liters O2 with 92 % saturation 2. diabetes mellitus 3. cirrhosis P 1. continue dexamethasone day 3 2. d/c azithromycin 3. 1 dose ivermectin 4. continue isolation Subjective Constitutional: Denies: fever, chills Respiratory: Reports: shortness of breath, dry cough Gastrointestinal/Abdominal: Reports: nausea, vomiting; Denies: diarrhea Musculoskeletal: Denies: pain Allergies: Coded Allergies: No Known Allergies (Unverified , 09/14/20) Objective Last 24 Hour Vital Signs Date Time Temp Pulse Resp B/P (MAP) Pulse Ox O2 Delivery O2 Flow Rate FiO2 09/16/20 09:00 Nasal Cannula 2.0 09/16/20 08:00 97.7 69 18 115/77 (90) 92 09/16/20 08:00 72 09/16/20 04:00 96.9 67 20 108/59 (75) 95 09/16/20 04:00 75 09/16/20 00:00 74 09/16/20 00:00 96.4 75 20 106/65 (79) 97 09/15/20 21:00 Nasal Cannula 2.0 09/15/20 20:00 97.5 80 24 104/72 (83) 97 09/15/20 20:00 82 09/15/20 16:00 82 09/15/20 16:00 97.6 73 18 130/70 (90) 97 09/15/20 12:07 84 09/15/20 11:57 97.3 75 17 120/63 (82) 96 Height (Feet): 5 Height (Inches): 5.00 Weight (Pounds): 121 Microbiology Date/Time Source Procedure Growth Status 09/14/20 13:30 Nasopharynx SARS-CoV-2 RdRp Gene Assay - Final Complete Laboratory Tests Test 09/15/20 11:14 09/15/20 16:40 09/15/20 21:29 09/16/20 05:00 POC Whole Blood Glucose 146 MG/DL (74-106) H 178 MG/DL (74-106) H 144 MG/DL (74-106) H White Blood Count 11.8 K/UL (4.8-10.8) #H Red Blood Count 3.47 M/UL (4.70-6.10) L Hemoglobin 10.4 G/DL (14.2-18.0) L Hematocrit 32.3 % (42.0-52.0) L Mean Corpuscular Volume 93 FL (80-99) Mean Corpuscular Hemoglobin 29.9 PG (27.0-31.0) Mean Corpuscular Hemoglobin Concent 32.1 G/DL (32.0-36.0) Red Cell Distribution Width 15.3 % (11.6-14.8) H Platelet Count 225 K/UL (150-450) Mean Platelet Volume 6.6 FL (6.5-10.1) Neutrophils (%) (Auto) % (45.0-75.0) Lymphocytes (%) (Auto) % (20.0-45.0) Monocytes (%) (Auto) % (1.0-10.0) Eosinophils (%) (Auto) % (0.0-3.0) Basophils (%) (Auto) % (0.0-2.0) Prothrombin Time 12.0 SEC (9.30-11.50) H Prothromb Time International Ratio 1.1 (0.9-1.1) Sodium Level 136 MMOL/L (136-145) Potassium Level 4.2 MMOL/L (3.5-5.1) Chloride Level 106 MMOL/L (98-107) Carbon Dioxide Level 24 MMOL/L (21-32) Anion Gap 6 mmol/L (5-15) Blood Urea Nitrogen 19 mg/dL (7-18) H Creatinine 0.7 MG/DL (0.55-1.30) Estimat Glomerular Filtration Rate > 60 mL/min (>60) Glucose Level 135 MG/DL (74-106) H Calcium Level 8.2 MG/DL (8.5-10.1) L Iron Level 88 ug/dL (50-175) Total Iron Binding Capacity 163 ug/dL (250-450) L Percent Iron Saturation 54 % (15-50) H Unsaturated Iron Binding 75 ug/dL (112-346) L Total Bilirubin 0.5 MG/DL (0.2-1.0) Aspartate Amino Transf (AST/SGOT) 67 U/L (15-37) H Alanine Aminotransferase (ALT/SGPT) 24 U/L (12-78) Alkaline Phosphatase 134 U/L (46-116) H Total Protein 8.4 G/DL (6.4-8.2) H Albumin 1.9 G/DL (3.4-5.0) L Globulin 6.5 g/dL Albumin/Globulin Ratio 0.3 (1.0-2.7) L Folate 13.4 NG/ML (8.6-58.9) Test 09/16/20 06:29 POC Whole Blood Glucose 121 MG/DL (74-106) H Current Medications Medications (Trade) Dose Ordered Sig/Polo Route PRN Reason Start Time Stop Time Status Last Admin Dose Admin Acetaminophen (Tylenol) 650 mg Q4H PRN ORAL Mild Pain (Pain Scale 1-3) 09/14/20 22:15 10/14/20 22:14 09/15/20 16:32 Acetaminophen (Tylenol) 650 mg Q4H PRN ORAL Temp >100.5 09/14/20 22:15 10/14/20 22:14 Albuterol Sulfate (Proventil MDI) 2 puff Q4H PRN INH Shortness of Breath 09/14/20 22:15 12/13/20 22:14 Ascorbic Acid (Vitamin C) 500 mg DAILY ORAL 09/15/20 09:00 10/15/20 08:59 09/16/20 10:05 Azithromycin (Zithromax) 250 mg DAILY ORAL 09/15/20 09:00 09/18/20 09:01 09/16/20 10:05 Dexamethasone Sodium Phosphate (Decadron 10mg/ ml Inj) 6 mg DAILY@1400 IV 09/15/20 14:00 09/24/20 14:01 09/15/20 13:51 Dextrose (Dextrose 50%) 25 ml Q30M PRN IV Hypoglycemia 09/14/20 23:00 12/13/20 22:59 Dextrose (Dextrose 50%) 50 ml Q30M PRN IV Hypoglycemia 09/14/20 23:00 12/13/20 22:59 Diphenhydramine HCl (Benadryl) 25 mg EVERY 4 HOURS PRN IVP Itching 09/14/20 22:15 10/14/20 22:14 Docusate Sodium (Colace) 250 mg DAILY ORAL 09/15/20 09:00 10/15/20 08:59 09/16/20 10:05 Enoxaparin Sodium (Lovenox) 60 mg DAILY SUBQ 09/15/20 09:00 12/14/20 08:59 09/15/20 08:41 Guaifenesin (Mucinex ER) 600 mg TWICE A DAY ORAL 09/15/20 09:00 12/14/20 08:59 09/16/20 10:05 Guaifenesin/ Codeine Phosphate (Robitussin with codeine) 5 ml EVERY 4 HOURS PRN ORAL For Cough 09/14/20 22:15 10/14/20 22:14 Guaifenesin/ Dextromethorphan (Robitussin DM Syrup) 5 ml Q4H PRN ORAL For Cough 09/14/20 22:15 12/13/20 22:14 Insulin Aspart (NovoLOG) BEFORE MEALS AND HS SUBQ 09/15/20 06:30 12/14/20 06:29 09/15/20 22:24 Iohexol (Omnipaque 350 100ml) 100 ml NOW PRN INJ Radiology Procedure 09/14/20 15:00 09/16/20 14:59 Ipratropium [place] (Atrovent Inh) 1 puffs EVERY 4 HOURS PRN INH Shortness of Breath 09/14/20 22:15 10/14/20 22:14 09/15/20 17:53 Multivitamins (Multivitamins) 1 tab DAILY ORAL 09/15/20 09:00 10/15/20 08:59 09/16/20 10:05 Ondansetron HCl (Zofran) 4 mg EVERY 4 HOURS PRN IVP Nausea & Vomiting 09/14/20 22:15 10/14/20 22:14 Vitamin D (Vitamin D) 400 unit DAILY ORAL 09/15/20 09:00 10/15/20 08:59 09/16/20 10:05 Zinc Sulfate (Zinc Sulfate) 220 mg DAILY ORAL 09/15/20 09:00 12/14/20 08:59 09/16/20 10:05 Gena Caceres MD Sep 16, 2020 10:53
--- NOTE | 2020-09-16 11:15 | Pulmonology Progress Note ---
Subjective Allergies: Coded Allergies: No Known Allergies (Unverified , 09/14/20) Subjective on 2 L o2 via NC reports some cough, no SOB, no CP mild leuk this am ( ? 2/2 steroids) no fevers thoracentesis pending this am upon questioning pt admits to use ETOH excessively in the past Objective Last 24 Hour Vital Signs Date Time Temp Pulse Resp B/P (MAP) Pulse Ox O2 Delivery O2 Flow Rate FiO2 09/16/20 09:00 Nasal Cannula 2.0 09/16/20 08:00 97.7 69 18 115/77 (90) 92 09/16/20 08:00 72 09/16/20 04:00 96.9 67 20 108/59 (75) 95 09/16/20 04:00 75 09/16/20 00:00 74 09/16/20 00:00 96.4 75 20 106/65 (79) 97 09/15/20 21:00 Nasal Cannula 2.0 09/15/20 20:00 97.5 80 24 104/72 (83) 97 09/15/20 20:00 82 09/15/20 16:00 82 09/15/20 16:00 97.6 73 18 130/70 (90) 97 09/15/20 12:07 84 09/15/20 11:57 97.3 75 17 120/63 (82) 96 Intake and Output 09/15/20 09/16/20 19:00 07:00 Intake Total 800 ml Output Total 300 ml 500 ml Balance 500 ml -500 ml Intake Oral 800 ml Output Urine Total 300 ml 500 ml # Voids 1 3 General Appearance: no acute distress HEENT: normocephalic, atraumatic, anicteric, mucous membranes moist, PERRL, other - O2 2 L via NC Respiratory: decreased breath sounds Cardiovascular: normal rate, regular rhythm Abdomen: soft, non tender Extremities: no edema, pedal pulses normal Skin: other - BLE reddishn/brown hyperpigmentation 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 II-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 grossly normal, no motor/sensory deficits, alert, oriented x 3, responsive Musculoskeletal: normal muscle bulk Microbiology Date/Time Source Procedure Growth Status 09/14/20 13:30 Nasopharynx SARS-CoV-2 RdRp Gene Assay - Final Complete Laboratory Tests 09/15/20 11:14: POC Whole Blood Glucose 146H 09/15/20 16:40: POC Whole Blood Glucose 178H 09/15/20 21:29: POC Whole Blood Glucose 144H 09/16/20 05:00: White Blood Count 11.8#H, Red Blood Count 3.47L, Hemoglobin 10.4L, Hematocrit 32.3L, Mean Corpuscular Volume 93, Mean Corpuscular Hemoglobin 29.9, Mean Corpuscular Hemoglobin Concent 32.1, Red Cell Distribution Width 15.3H, Platelet Count 225, Mean Platelet Volume 6.6, Neutrophils (%) (Auto) , Lymphocytes (%) (Auto) , Monocytes (%) (Auto) , Eosinophils (%) (Auto) , Basophils (%) (Auto) , Prothrombin Time 12.0H, Prothromb Time International Ratio 1.1, Sodium Level 136, Potassium Level 4.2, Chloride Level 106, Carbon Dioxide Level 24, Anion Gap 6, Blood Urea Nitrogen 19H, Creatinine 0.7, Estimat Glomerular Filtration Rate > 60, Glucose Level 135H, Calcium Level 8.2L, Iron Level 88, Total Iron Binding Capacity 163L, Percent Iron Saturation 54H, Unsaturated Iron Binding 75L, Total Bilirubin 0.5, Aspartate Amino Transf (AST/SGOT) 67H, Alanine Aminotransferase (ALT/SGPT) 24, Alkaline Phosphatase 134H, Total Protein 8.4H, Albumin 1.9L, Globulin 6.5, Albumin/Globulin Ratio 0.3L, Folate 13.4 09/16/20 06:29: POC Whole Blood Glucose 121H Current Medications Medications (Trade) Dose Ordered Sig/Polo Route PRN Reason Start Time Stop Time Status Last Admin Dose Admin Acetaminophen (Tylenol) 650 mg Q4H PRN ORAL Mild Pain (Pain Scale 1-3) 09/14/20 22:15 10/14/20 22:14 09/15/20 16:32 Acetaminophen (Tylenol) 650 mg Q4H PRN ORAL Temp >100.5 09/14/20 22:15 10/14/20 22:14 Albuterol Sulfate (Proventil MDI) 2 puff Q4H PRN INH Shortness of Breath 09/14/20 22:15 12/13/20 22:14 Ascorbic Acid (Vitamin C) 500 mg DAILY ORAL 09/15/20 09:00 10/15/20 08:59 09/16/20 10:05 Dexamethasone Sodium Phosphate (Decadron 10mg/ ml Inj) 6 mg DAILY@1400 IV 09/15/20 14:00 09/24/20 14:01 09/15/20 13:51 Dextrose (Dextrose 50%) 25 ml Q30M PRN IV Hypoglycemia 09/14/20 23:00 12/13/20 22:59 Dextrose (Dextrose 50%) 50 ml Q30M PRN IV Hypoglycemia 09/14/20 23:00 12/13/20 22:59 Diphenhydramine HCl (Benadryl) 25 mg EVERY 4 HOURS PRN IVP Itching 09/14/20 22:15 10/14/20 22:14 Docusate Sodium (Colace) 250 mg DAILY ORAL 09/15/20 09:00 10/15/20 08:59 09/16/20 10:05 Enoxaparin Sodium (Lovenox) 60 mg DAILY SUBQ 09/15/20 09:00 12/14/20 08:59 09/15/20 08:41 Guaifenesin (Mucinex ER) 600 mg TWICE A DAY ORAL 09/15/20 09:00 12/14/20 08:59 09/16/20 10:05 Guaifenesin/ Codeine Phosphate (Robitussin with codeine) 5 ml EVERY 4 HOURS PRN ORAL For Cough 09/14/20 22:15 10/14/20 22:14 Guaifenesin/ Dextromethorphan (Robitussin DM Syrup) 5 ml Q4H PRN ORAL For Cough 09/14/20 22:15 12/13/20 22:14 Insulin Aspart (NovoLOG) BEFORE MEALS AND HS SUBQ 09/15/20 06:30 12/14/20 06:29 09/15/20 22:24 Iohexol (Omnipaque 350 100ml) 100 ml NOW PRN INJ Radiology Procedure 09/14/20 15:00 09/16/20 14:59 Ipratropium [place] (Atrovent Inh) 1 puffs EVERY 4 HOURS PRN INH Shortness of Breath 09/14/20 22:15 10/14/20 22:14 09/15/20 17:53 Ivermectin (StromectoL) 12 mg ONCE ONCE ORAL 09/16/20 12:00 09/16/20 12:01 Multivitamins (Multivitamins) 1 tab DAILY ORAL 09/15/20 09:00 10/15/20 08:59 09/16/20 10:05 Ondansetron HCl (Zofran) 4 mg EVERY 4 HOURS PRN IVP Nausea & Vomiting 09/14/20 22:15 10/14/20 22:14 Vitamin D (Vitamin D) 400 unit DAILY ORAL 09/15/20 09:00 10/15/20 08:59 09/16/20 10:05 Zinc Sulfate (Zinc Sulfate) 220 mg DAILY ORAL 09/15/20 09:00 12/14/20 08:59 09/16/20 10:05 Assessment/Plan Assessment/Plan ASSESSMENT COVID PNA Hypoxia Large left effusion, possibly loculated, with associated compressive atelectasis Lymphadenopathy r/o possible malignancy Anemia Diarrhea Elevated AST, likely due to liver cirrhosis Hypoalbuminemia DM hx of ETOH PLAN OF CARE tele Date of sx onset: 2 wks prior to presentation to ED Positive test: 09/14 rapid COVID 19 O2 2 L NC HFA Dex Day# 3 ( 09/14 -) REM -> per ID recs, elevated AST -hold for now s/p Ivermectin DVT PPX: Lovenox D dimer 5.24 Trend CRP 8.3 - CTA-> no PE, biut large left ( likely loculated) pl effusion thoracentesis pending ( for diagnostic and therapeutic reasons) no abx as per ID recs a/tussive ptn supportive care : vitamin D, A, , zinc anemia w/up, CEA-5.6 stool OB ESR high monitor HH with goal to keep Hgb > 7 trend LFT-AST trending down BS management with SSI GI prophylaxis Monitor volumes and renal function Fup with consultants recs FC Discuss GOC case discussed and evaluated by supervising physician Maya Real NP Sep 16, 2020 11:15
[2020-09-16 12:00] VITALS: BP 102/55
[2020-09-16] MEDS: dexAMETHasone 10mg/ml Inj IV SCH (14:52)
--- NOTE | 2020-09-16 15:12 | Pre-Procedure Note/Attestation ---
Pre-Procedure Note/Attestation Complete Prior to Procedure Planned Procedure: left Procedure Narrative: Thoracentesis Indications for Procedure Pre-Operative Diagnosis: Pleural effusion Attestation I attest that I discussed the nature of the procedure; its benefits; risks and complications; and alternatives (and the risks and benefits of such alternatives), prior to the procedure, with the patient (or the patient's legal inbound call center representative). I attest that, if there was a reasonable possibility of needing a blood gaona sfusion, the patient (or the patient's legal inbound call center representative) was given the [facility] standardized written summary, pursuant to the Ganesh Deisi Blood Safety Act ([place] Health and Safety Code # 1645, as amended). I attest that I re-evaluated the patient just prior to the surgery and that there has been no change in the patient's H&P, except as documented below: Talon Saleh MD Sep 16, 2020 15:12
--- NOTE | 2020-09-16 15:13 | Brief Operative Note ---
Immediate Post Operative Note Operative Note Pre-op Diagnosis: Pleural effusion Procedure: thoracentesis L Post-op Diagnosis: same Surgeon: Roland Hardy Anesthesia: local Specimen: none Complications: none Fluids: none Implant(s) used?: No Talon Hardy MD Sep 16, 2020 15:13
[2020-09-16 16:00] VITALS: BP 115/70
--- NOTE | 2020-09-16 16:03 | Diagnostic Imaging Report ---
Indications: Pleural effusion Technique: Ultrasound used to localize optimal puncture site. Sterile prepping and draping left chest. Local anesthesia with 1% lidocaine. Under real-time ultrasound guidance, puncture pleural space using thoracentesis needle. Stylet removed. Catheter placed to vacuum bottle suction. Total 150 milliliters of cloudy yellow fluid aspirated. Specimen sent to the lab. Patient tolerated procedure well, without immediate complication. Findings: Initial sonography demonstrates heavily loculated septated fluid. Followup sonography demonstrates persistent pleural fluid Impression: Successful ultrasound-guided thoracentesis, yielding 150 milliliters of fluid. Note that fluid was incompletely evacuated, presumably due to collection being heavily loculated
--- NOTE | 2020-09-16 16:38 | Surgery Progress Note ---
Surgery Progress Note Subjective Additional Comments leukocytosis lf'ts elevated thora today Objective Last 24 Hour Vital Signs Date Time Temp Pulse Resp B/P (MAP) Pulse Ox O2 Delivery O2 Flow Rate FiO2 09/16/20 16:00 76 09/16/20 16:00 96.1 78 20 115/70 (85) 96 09/16/20 12:00 97.5 73 20 102/55 (71) 94 09/16/20 12:00 79 09/16/20 09:00 Nasal Cannula 2.0 09/16/20 08:00 97.7 69 18 115/77 (90) 92 09/16/20 08:00 72 09/16/20 04:00 96.9 67 20 108/59 (75) 95 09/16/20 04:00 75 09/16/20 00:00 74 09/16/20 00:00 96.4 75 20 106/65 (79) 97 09/15/20 21:00 Nasal Cannula 2.0 09/15/20 20:00 97.5 80 24 104/72 (83) 97 09/15/20 20:00 82 I&O Intake and Output 09/15/20 09/16/20 19:00 07:00 Intake Total 800 ml Output Total 300 ml 500 ml Balance 500 ml -500 ml Intake Oral 800 ml Output Urine Total 300 ml 500 ml # Voids 1 3 Cardiovascular: RSR Respiratory: decreased breath sounds Abdomen: soft, non-tender, present bowel sounds Extremities: no tenderness, no cyanosis Laboratory Tests Test 09/15/20 16:40 09/15/20 21:29 09/16/20 05:00 09/16/20 06:29 POC Whole Blood Glucose 178 MG/DL (74-106) H 144 MG/DL (74-106) H 121 MG/DL (74-106) H White Blood Count 11.8 K/UL (4.8-10.8) #H Red Blood Count 3.47 M/UL (4.70-6.10) L Hemoglobin 10.4 G/DL (14.2-18.0) L Hematocrit 32.3 % (42.0-52.0) L Mean Corpuscular Volume 93 FL (80-99) Mean Corpuscular Hemoglobin 29.9 PG (27.0-31.0) Mean Corpuscular Hemoglobin Concent 32.1 G/DL (32.0-36.0) Red Cell Distribution Width 15.3 % (11.6-14.8) H Platelet Count 225 K/UL (150-450) Mean Platelet Volume 6.6 FL (6.5-10.1) Neutrophils (%) (Auto) % (45.0-75.0) Lymphocytes (%) (Auto) % (20.0-45.0) Monocytes (%) (Auto) % (1.0-10.0) Eosinophils (%) (Auto) % (0.0-3.0) Basophils (%) (Auto) % (0.0-2.0) Prothrombin Time 12.0 SEC (9.30-11.50) H Prothromb Time International Ratio 1.1 (0.9-1.1) Sodium Level 136 MMOL/L (136-145) Potassium Level 4.2 MMOL/L (3.5-5.1) Chloride Level 106 MMOL/L (98-107) Carbon Dioxide Level 24 MMOL/L (21-32) Anion Gap 6 mmol/L (5-15) Blood Urea Nitrogen 19 mg/dL (7-18) H Creatinine 0.7 MG/DL (0.55-1.30) Estimat Glomerular Filtration Rate > 60 mL/min (>60) Glucose Level 135 MG/DL (74-106) H Calcium Level 8.2 MG/DL (8.5-10.1) L Iron Level 88 ug/dL (50-175) Total Iron Binding Capacity 163 ug/dL (250-450) L Percent Iron Saturation 54 % (15-50) H Unsaturated Iron Binding 75 ug/dL (112-346) L Total Bilirubin 0.5 MG/DL (0.2-1.0) Aspartate Amino Transf (AST/SGOT) 67 U/L (15-37) H Alanine Aminotransferase (ALT/SGPT) 24 U/L (12-78) Alkaline Phosphatase 134 U/L (46-116) H Total Protein 8.4 G/DL (6.4-8.2) H Albumin 1.9 G/DL (3.4-5.0) L Globulin 6.5 g/dL Albumin/Globulin Ratio 0.3 (1.0-2.7) L Folate 13.4 NG/ML (8.6-58.9) Test 09/16/20 14:22 09/16/20 16:35 Body Fluid Source Pending Body Fluid Volume Pending Body Fluid Appearance Pending Body Fluid RBC Pending Body Fluid Total Nucleated Cells Pending Body Fluid Polynuclear WBCs (%) Pending Body Fluid Mononuclear WBCs (%) Pending Body Fluid Mesothelial Cells (%) Pending Body Fluid Glucose Pending Body Fluid Total Protein Pending Body Fluid Albumin Pending Body Fluid Lactate Dehydrogenase Pending Body Fluid Comment Pending POC Whole Blood Glucose 168 MG/DL (74-106) H Plan Problems: (1) Pleural effusion Assessment & Plan: 59 male Covid positive respiratory shortness of breath identified to have massive pleural effusion left. Potentially loculated collection is identified on CT. We will begin with thoracentesis interventional radiology May require a chest tube as needed If significantly loculated or empyema or worsening will discuss with thoracic surgery Continue IV antibiotics per infectious disease Thank you will follow the recommendations pulmonary arteries are adequately opacified. No definite intraluminal filling defects or other findings to suggest acute pulmonary embolus are evident. No evidence of pulmonary arterial dilatation or right ventricular dilatation. No evidence of thoracic aortic aneurysm or dissection. Normal caliber and branching anatomy of the great neck vessels. There is a massive left pleural effusion. This demonstrates marked thickening and some enhancement of the of the pleural surface. There is a significant nondependent component anteriorly. This results in compressive atelectasis of significant portions of the left lower lobe and some of the left upper lobe. Multiple focal groundglass opacities are seen scattered throughout the right lung in a mostly peripheral distribution. No right pleural effusion is demonstrated. No right lung mass demonstrated. Prominent but not frankly enlarged right hilar nodes are demonstrated. Numerous prominent mediastinal nodes are demonstrated, particularly numerous in the prevascular space. The esophagus is unremarkable. The thyroid is unremarkable. Included upper abdominal anatomy demonstrates hepatic surface nodularity. Impression: No definite evidence of acute pulmonary embolus or other acute thoracic vascular pathology. Multifocal groundglass opacities in the right lung. This is concerning for multifocal pneumonia, likely viral Massive left pleural effusion. Presumably chronic and likely loculated, given the presence of considerable pleural thickening Considerable left lung parenchymal atelectasis related to the above Numerous and prominent mediastinal lymph nodes may indicate lymphadenopathy. Appearance nonspecific as regards etiology Evidence of hepatic cirrhosis Ultrasound used to localize optimal puncture site. Sterile prepping and draping left chest. Local anesthesia with 1% lidocaine. Under real-time ultrasound guidance, puncture pleural space using thoracentesis needle. Stylet removed. Catheter placed to vacuum bottle suction. Total 150 milliliters of cloudy yellow fluid aspirated. Specimen sent to the lab. Patient tolerated procedure well, without immediate complication. Findings: Initial sonography demonstrates heavily loculated septated fluid. Followup sonography demonstrates persistent pleural fluid Impression: Successful ultrasound-guided thoracentesis, yielding 150 milliliters of fluid. Note that fluid was incompletely evacuated, presumably due to collection being heavily loculated (2) Hypoxia (3) Coronavirus infection Assessment & Plan: ++ as per ID and pulm Roman Conway Sep 16, 2020 16:38
--- NOTE | 2020-09-16 16:59 | Diagnostic Imaging Report ---
Indication: Shortness of breath, status post thoracentesis Technique: One view of the chest Comparison: 09/14/2020 Findings: Less optimal inspiration currently. There is questionable slightly decreased left pleural effusion. No pneumothorax. There is crowding of bronchovascular markings on the right and possibly some perihilar infiltrate. Impression: Equivocally decreased left pleural effusion, status post thoracentesis. No radiographically evident complication Questionable new right lung infiltrates
--- NOTE | 2020-09-16 19:15 | NUR ---
NURSE HAND-OFF REPORT: Important Events on Shift:[No remarkable events, 150 cc taken out via thoracentesis. complains of weak cough, tolerating 4 liters NC well.] Patient Status: [Full code] Diet: [Regular] Pending Orders: [] Pending Results/Labs:[] Pending MD notification:[] Latest Vital Signs: Temperature 96.1 , Pulse 78 , B/P 115 /70 , Respiratory Rate 20 , O2 SAT 96 , , O2 Flow Rate 2.0 . Vital Sign Comment: [] EKG Rhythm: Sinus Rhythm Rhythm change?: N MD Notified?: - MD Response: Latest Harrell Fall Score: 30 Fall Risk: Medium Risk Safety Measures: Call light Within Reach, Bed Alarm , Side Rails Side Rails x2, Bed position Low and Locked. Fall Precautions: Yellow Socks Yellow Gown Report given to [Ramirez VILLEDA].
--- NOTE | 2020-09-16 19:28 | NUR ---
NURSE NOTES: Patient received from Tanai RN. Patient in stable condition. Alert and oriented x4 faroese speaking. No s/s of pain and no s/s of respiratory distress. On 4 Liters of oxygen via nasal cannula. IV site patent and intact on left AC 22G. Bed in lowest position and locked. Bed alarm on.
[2020-09-16 20:00] VITALS: BP 119/69
[2020-09-16] MEDS: guaiFENesin w/Codeine 5ml Liq ud ORAL PRN (23:22)
[2020-09-17] VITALS: BP 126/77
[2020-09-17 04:00] VITALS: BP 129/77
[2020-09-17 05:22] LABS: HEMOGLOBIN 11.3 G/DL (14.2-18.0); MEAN CORPUSCULAR VOLUME 91 FL (80-99); PLATELET COUNT 243 K/UL (150-450); RED BLOOD COUNT 3.74 M/UL (4.70-6.10); RED CELL DISTRIBUTION WIDTH 14.7 % (11.6-14.8); WHITE BLOOD COUNT 10.9 K/UL (4.8-10.8)
[2020-09-17 06:03] LABS: ANION GAP 7 mmol/L (5-15); BLOOD UREA NITROGEN 16 mg/dL (7-18); CALCIUM 8.6 MG/DL (8.5-10.1); CARBON DIOXIDE 23 MMOL/L (21-32); CHLORIDE 105 MMOL/L (98-107); CREATININE 0.8 MG/DL (0.55-1.30); POTASSIUM 4.1 MMOL/L (3.5-5.1); SODIUM 135 MMOL/L (136-145)
[2020-09-17] MEDS: NovoLOG Insulin Flexpen SUBQ SCH ×4 (06:30→21:29)
[2020-09-17] MEDS: guaiFENesin w/Codeine 5ml Liq ud ORAL PRN ×2 (07:02→11:26)
--- NOTE | 2020-09-17 07:18 | NUR ---
NURSE HAND-OFF REPORT: Important Events on Shift:[OB stool pending] Patient Status: [Stable, FC, Alert awake oriented x4] Diet: [Reg Diet] Pending Orders: [] Pending Results/Labs:[] Pending MD notification:[] Latest Vital Signs: Temperature 97.7 , Pulse 77 , B/P 129 /77 , Respiratory Rate 18 , O2 SAT 95 , , O2 Flow Rate 3.0 . Vital Sign Comment: [] EKG Rhythm: Sinus Rhythm Rhythm change?: N MD Notified?: - MD Response: Latest Harrell Fall Score: 30 Fall Risk: Medium Risk Safety Measures: Call light Within Reach, Bed Alarm , Side Rails Side Rails x2, Bed position Low and Locked. Fall Precautions: Yellow Socks Yellow Gown Report given to [Sandra VILLEDA].
--- NOTE | 2020-09-17 07:28 | NUR ---
NURSE NOTES: Received report from Neetu/RN. Pt in bed sleeping, on 4L nasal cannula, no distress or SOB noted. Able to make needs known. IV on right FA 20G, SL, patent and clean. Bed in the lowest position and locked, call light within reach, encouraged to use when needed. Side rail up X3. Will continue plan of care.
[2020-09-17 08:00] VITALS: BP 109/73
[2020-09-17] MEDS: Zinc Sulfate 220mg ORAL SCH (08:41)
[2020-09-17] MEDS: Ascorbic Acid 500mg tab ORAL SCH (08:42)
[2020-09-17] MEDS: Vitamin D 400 units TAB ORAL SCH (08:42)
[2020-09-17] MEDS: Docusate 250mg cap ORAL SCH (08:42)
[2020-09-17] MEDS: guaiFENesin ER 600mg tab ORAL SCH ×2 (08:42→18:06)
[2020-09-17] MEDS: Enoxaparin 60mg Inj SUBQ SCH (08:43)
--- NOTE | 2020-09-17 08:55 | Pulmonology Progress Note ---
Subjective Allergies: Coded Allergies: No Known Allergies (Unverified , 09/14/20) Subjective on 3 L O2 via NC reports some cough, no SOB, no CP s/p thoracentesis 09/16 -150 ml Objective Last 24 Hour Vital Signs Date Time Temp Pulse Resp B/P (MAP) Pulse Ox O2 Delivery O2 Flow Rate FiO2 09/17/20 08:00 97.7 77 18 109/73 (85) 97 09/17/20 04:00 97.7 78 18 129/77 (94) 95 09/17/20 04:00 77 09/17/20 00:00 79 09/17/20 00:00 97.5 85 19 126/77 (93) 100 09/16/20 21:00 Nasal Cannula 3.0 09/16/20 20:00 90 09/16/20 20:00 97.7 85 19 119/69 (86) 96 09/16/20 16:00 76 09/16/20 16:00 96.1 78 20 115/70 (85) 96 09/16/20 12:00 97.5 73 20 102/55 (71) 94 09/16/20 12:00 79 09/16/20 09:00 Nasal Cannula 2.0 Intake and Output 09/16/20 09/17/20 19:00 07:00 Intake Total 400 ml Output Total 500 ml 640 ml Balance -100 ml -640 ml Intake Oral 400 ml Output Urine Total 500 ml 640 ml General Appearance: no acute distress HEENT: normocephalic, atraumatic, anicteric, mucous membranes moist, PERRL, other - O2 3 L via NC Respiratory: decreased breath sounds Cardiovascular: normal rate, regular rhythm Abdomen: soft, non tender Extremities: no edema, pedal pulses normal Skin: other - BLE reddishn/brown hyperpigmentation 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 II-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 grossly normal, no motor/sensory deficits, alert, oriented x 3, responsive Musculoskeletal: normal muscle bulk Microbiology Date/Time Source Procedure Growth Status 09/16/20 14:22 Body Fluid Pulmonary Gram Stain - Final Resulted 09/16/20 14:22 Body Fluid Pulmonary Body Fluid Culture - Preliminary NO GROWTH Resulted 09/15/20 08:40 Blood Blood Culture - Preliminary NO GROWTH AFTER 24 HOURS Resulted 09/15/20 08:30 Blood Blood Culture - Preliminary NO GROWTH AFTER 24 HOURS Resulted 09/14/20 13:30 Nasopharynx SARS-CoV-2 RdRp Gene Assay - Final Complete Laboratory Tests 09/16/20 14:22: Body Fluid Source Thoracentesis, Body Fluid Volume 24, Body Fluid Appearance Yellow hazy, Body Fluid RBC 904, Body Fluid Total Nucleated Cells 0, Body Fluid Polynuclear WBCs (%) , Body Fluid Mononuclear WBCs (%) , Body Fluid Mesothelial Cells (%) , Body Fluid Glucose [Pending], Body Fluid Total Protein [Pending], Body Fluid Albumin [Pending], Body Fluid Lactate Dehydrogenase [Pending], Body Fluid Comment 09/16/20 16:35: POC Whole Blood Glucose 168H 09/16/20 19:53: POC Whole Blood Glucose [Pending] 09/17/20 04:00: White Blood Count 10.9H, Red Blood Count 3.74L, Hemoglobin 11.3L, Hematocrit 34.0L, Mean Corpuscular Volume 91, Mean Corpuscular Hemoglobin 30.1, Mean Corpuscular Hemoglobin Concent 33.1, Red Cell Distribution Width 14.7, Platelet Count 243, Mean Platelet Volume 6.7, Neutrophils (%) (Auto) , Lymphocytes (%) (Auto) , Monocytes (%) (Auto) , Eosinophils (%) (Auto) , Basophils (%) (Auto) , Differential Total Cells Counted 100, Neutrophils % (Manual) 89H, Lymphocytes % (Manual) 9L, Monocytes % (Manual) 2, Eosinophils % (Manual) 0, Basophils % (Manual) 0, Band Neutrophils 0, Platelet Estimate Adequate, Platelet Morphology Normal, Anisocytosis 1+, Sodium Level 135L, Potassium Level 4.1, Chloride Level 105, Carbon Dioxide Level 23, Anion Gap 7, Blood Urea Nitrogen 16, Creatinine 0.8, Estimat Glomerular Filtration Rate > 60, Glucose Level 130H, Calcium Level 8.6 09/17/20 05:00: POC Whole Blood Glucose 132H Current Medications Medications (Trade) Dose Ordered Sig/Polo Route PRN Reason Start Time Stop Time Status Last Admin Dose Admin Acetaminophen (Tylenol) 650 mg Q4H PRN ORAL Mild Pain (Pain Scale 1-3) 09/14/20 22:15 10/14/20 22:14 09/15/20 16:32 Acetaminophen (Tylenol) 650 mg Q4H PRN ORAL Temp >100.5 09/14/20 22:15 10/14/20 22:14 Albuterol Sulfate (Proventil MDI) 2 puff Q4H PRN INH Shortness of Breath 09/14/20 22:15 12/13/20 22:14 Ascorbic Acid (Vitamin C) 500 mg DAILY ORAL 09/15/20 09:00 10/15/20 08:59 09/17/20 08:42 Dexamethasone Sodium Phosphate (Decadron 10mg/ ml Inj) 6 mg DAILY@1400 IV 09/15/20 14:00 09/24/20 14:01 09/16/20 14:52 Dextrose (Dextrose 50%) 25 ml Q30M PRN IV Hypoglycemia 09/14/20 23:00 12/13/20 22:59 Dextrose (Dextrose 50%) 50 ml Q30M PRN IV Hypoglycemia 09/14/20 23:00 12/13/20 22:59 Diphenhydramine HCl (Benadryl) 25 mg EVERY 4 HOURS PRN IVP Itching 09/14/20 22:15 10/14/20 22:14 Docusate Sodium (Colace) 250 mg DAILY ORAL 09/15/20 09:00 10/15/20 08:59 09/17/20 08:42 Enoxaparin Sodium (Lovenox) 60 mg DAILY SUBQ 09/15/20 09:00 12/14/20 08:59 09/17/20 08:43 Guaifenesin (Mucinex ER) 600 mg TWICE A DAY ORAL 09/15/20 09:00 12/14/20 08:59 09/17/20 08:42 Guaifenesin/ Codeine Phosphate (Robitussin with codeine) 5 ml EVERY 4 HOURS PRN ORAL For Cough 09/14/20 22:15 10/14/20 22:14 09/17/20 07:02 Guaifenesin/ Dextromethorphan (Robitussin DM Syrup) 5 ml Q4H PRN ORAL For Cough 09/14/20 22:15 12/13/20 22:14 Insulin Aspart (NovoLOG) BEFORE MEALS AND HS SUBQ 09/15/20 06:30 12/14/20 06:29 09/16/20 16:45 Ipratropium [place] (Atrovent Inh) 1 puffs EVERY 4 HOURS PRN INH Shortness of Breath 09/14/20 22:15 10/14/20 22:14 09/15/20 17:53 Multivitamins (Multivitamins) 1 tab DAILY ORAL 09/15/20 09:00 10/15/20 08:59 09/17/20 08:41 Ondansetron HCl (Zofran) 4 mg EVERY 4 HOURS PRN IVP Nausea & Vomiting 09/14/20 22:15 10/14/20 22:14 Vitamin D (Vitamin D) 400 unit DAILY ORAL 09/15/20 09:00 10/15/20 08:59 09/17/20 08:42 Zinc Sulfate (Zinc Sulfate) 220 mg DAILY ORAL 09/15/20 09:00 12/14/20 08:59 09/17/20 08:41 Assessment/Plan Assessment/Plan ASSESSMENT COVID PNA Hypoxia Large left effusion, possibly loculated, with associated compressive atelectasis s/p thoracentesis 09/16 -> 150 ml Lymphadenopathy r/o possible malignancy Anemia Diarrhea Elevated AST, likely due to liver cirrhosis Hypoalbuminemia DM hx of ETOH PLAN OF CARE tele Date of sx onset: 2 wks prior to presentation to ED Positive test: 09/14 rapid COVID 19 O2 3 L NC HFA Dex Day# 4( 09/14 -) REM -> per ID recs, elevated AST -hold for now s/p Ivermectin encourage prone position as tolerated DVT PPX: Lovenox D dimer 5.24 Trend CRP 8.3 - CTA-> no PE, but large left ( likely loculated) pl effusion s/p tap 09/16 -> 150 ml ( effusion largely loculated) pleural cx NGTD, fluid analysis pending cytology pending CXR post tap-no PTX no abx as per ID recs a/tussive ptn supportive care : vitamin D, A, , zinc anemia w/up, CEA-5.6 stool OB ESR high monitor HH with goal to keep Hgb > 7 trend LFT-AST trending down BS management with SSI GI prophylaxis Monitor volumes and renal function Fup with consultants recs FC Discuss GOC case discussed and evaluated by supervising physician Maya Real NP Sep 17, 2020 08:55
--- NOTE | 2020-09-17 11:40 | Surgery Progress Note ---
Surgery Progress Note Subjective Additional Comments wbc trending down comfortable no n/v Objective Last 24 Hour Vital Signs Date Time Temp Pulse Resp B/P (MAP) Pulse Ox O2 Delivery O2 Flow Rate FiO2 09/17/20 09:00 Nasal Cannula 3.0 09/17/20 08:00 97.7 77 18 109/73 (85) 97 09/17/20 08:00 79 09/17/20 04:00 97.7 78 18 129/77 (94) 95 09/17/20 04:00 77 09/17/20 00:00 79 09/17/20 00:00 97.5 85 19 126/77 (93) 100 09/16/20 21:00 Nasal Cannula 3.0 09/16/20 20:00 90 09/16/20 20:00 97.7 85 19 119/69 (86) 96 09/16/20 16:00 76 09/16/20 16:00 96.1 78 20 115/70 (85) 96 09/16/20 12:00 97.5 73 20 102/55 (71) 94 09/16/20 12:00 79 I&O Intake and Output 09/16/20 09/17/20 19:00 07:00 Intake Total 400 ml Output Total 500 ml 640 ml Balance -100 ml -640 ml Intake Oral 400 ml Output Urine Total 500 ml 640 ml Cardiovascular: RSR Respiratory: clear, decreased breath sounds Abdomen: soft, non-tender, present bowel sounds Extremities: no edema, no tenderness, no cyanosis Laboratory Tests Test 09/16/20 14:22 09/16/20 16:35 09/16/20 19:53 09/17/20 04:00 Body Fluid Source Thoracentesis Body Fluid Volume 24 mL Body Fluid Appearance Yellow hazy (Clear) Body Fluid RBC 904 /CUMM Body Fluid Total Nucleated Cells 0 /CUMM Body Fluid Polynuclear WBCs (%) % Body Fluid Mononuclear WBCs (%) % Body Fluid Mesothelial Cells (%) % Body Fluid Glucose Pending Body Fluid Total Protein Pending Body Fluid Albumin Pending Body Fluid Lactate Dehydrogenase Pending Body Fluid Comment POC Whole Blood Glucose 168 MG/DL (74-106) H Pending White Blood Count 10.9 K/UL (4.8-10.8) H Red Blood Count 3.74 M/UL (4.70-6.10) L Hemoglobin 11.3 G/DL (14.2-18.0) L Hematocrit 34.0 % (42.0-52.0) L Mean Corpuscular Volume 91 FL (80-99) Mean Corpuscular Hemoglobin 30.1 PG (27.0-31.0) Mean Corpuscular Hemoglobin Concent 33.1 G/DL (32.0-36.0) Red Cell Distribution Width 14.7 % (11.6-14.8) Platelet Count 243 K/UL (150-450) Mean Platelet Volume 6.7 FL (6.5-10.1) Neutrophils (%) (Auto) % (45.0-75.0) Lymphocytes (%) (Auto) % (20.0-45.0) Monocytes (%) (Auto) % (1.0-10.0) Eosinophils (%) (Auto) % (0.0-3.0) Basophils (%) (Auto) % (0.0-2.0) Differential Total Cells Counted 100 Neutrophils % (Manual) 89 % (45-75) H Lymphocytes % (Manual) 9 % (20-45) L Monocytes % (Manual) 2 % (1-10) Eosinophils % (Manual) 0 % (0-3) Basophils % (Manual) 0 % (0-2) Band Neutrophils 0 % (0-8) Platelet Estimate Adequate Platelet Morphology Normal Anisocytosis 1+ Sodium Level 135 MMOL/L (136-145) L Potassium Level 4.1 MMOL/L (3.5-5.1) Chloride Level 105 MMOL/L (98-107) Carbon Dioxide Level 23 MMOL/L (21-32) Anion Gap 7 mmol/L (5-15) Blood Urea Nitrogen 16 mg/dL (7-18) Creatinine 0.8 MG/DL (0.55-1.30) Estimat Glomerular Filtration Rate > 60 mL/min (>60) Glucose Level 130 MG/DL (74-106) H Calcium Level 8.6 MG/DL (8.5-10.1) Test 09/17/20 05:00 09/17/20 11:21 POC Whole Blood Glucose 132 MG/DL (74-106) H 106 MG/DL (74-106) Plan Problems: (1) Pleural effusion Assessment & Plan: 59 male Covid positive respiratory shortness of breath id entified to have massive pleural effusion left. Potentially loculated collection is identified on CT. We will begin with thoracentesis interventional radiology May require a chest tube as needed If significantly loculated or empyema or worsening will discuss with thoracic surgery Continue IV antibiotics per infectious disease Thank you will follow the recommendations pulmonary arteries are adequately opacified. No definite intraluminal filling defects or other findings to suggest acute pulmonary embolus are evident. No evidence of pulmonary arterial dilatation or right ventricular dilatation. No evidence of thoracic aortic aneurysm or dissection. Normal caliber and branching anatomy of the great neck vessels. There is a massive left pleural effusion. This demonstrates marked thickening and some enhancement of the of the pleural surface. There is a significant nondependent component anteriorly. This results in compressive atelectasis of significant portions of the left lower lobe and some of the left upper lobe. Multiple focal groundglass opacities are seen scattered throughout the right lung in a mostly peripheral distribution. No right pleural effusion is demonstrated. No right lung mass demonstrated. Prominent but not frankly enlarged right hilar nodes are demonstrated. Numerous prominent mediastinal nodes are demonstrated, particularly numerous in the prevascular space. The esophagus is unremarkable. The thyroid is unremarkable. Included upper abdominal anatomy demonstrates hepatic surface nodularity. Impression: No definite evidence of acute pulmonary embolus or other acute thoracic vascular pathology. Multifocal groundglass opacities in the right lung. This is concerning for multifocal pneumonia, likely viral Massive left pleural effusion. Presumably chronic and likely loculated, given the presence of considerable pleural thickening Considerable left lung parenchymal atelectasis related to the above Numerous and prominent mediastinal lymph nodes may indicate lymphadenopathy. Appearance nonspecific as regards etiology Evidence of hepatic cirrhosis Ultrasound used to localize optimal puncture site. Sterile prepping and draping left chest. Local anesthesia with 1% lidocaine. Under real-time ultrasound guidance, puncture pleural space using thoracentesis needle. Stylet removed. Catheter placed to vacuum bottle suction. Total 150 milliliters of cloudy yellow fluid aspirated. Specimen sent to the lab. Patient tolerated procedure well, without immediate complication. Findings: Initial sonography demonstrates heavily loculated septated fluid. Followup sonography demonstrates persistent pleural fluid Impression: Successful ultrasound-guided thoracentesis, yielding 150 milliliters of fluid. Note that fluid was incompletely evacuated, presumably due to collection being heavily loculated (2) Hypoxia (3) Coronavirus infection Assessment & Plan: ++ as per ID and pulm Roman Conway Sep 17, 2020 11:39
[2020-09-17 12:00] VITALS: BP 120/82
[2020-09-17] MEDS: dexAMETHasone 10mg/ml Inj IV SCH (14:45)
[2020-09-17 16:00] VITALS: BP 118/78
--- NOTE | 2020-09-17 16:08 | Infectious Diseases Prog Note ---
Assessment/Plan Assessment/Plan A 1. COVID19 pneumonia 2. diabetes mellitus 3. cirrhosis 4. Pleural effusion 5. Hypoxemia P 1. continue dexamethasone day 4 2. Will f/u pleural culture 3. Got 1 dose ivermectin 4. continue isolation Subjective ROS Limited/Unobtainable: Yes Constitutional: Reports: other - feels better; Denies: fever Respiratory: Reports: other - had thoracentesis & removal of 150cc of pleural fluid Gastrointestinal/Abdominal: Reports: no symptoms Genitourinary: Reports: no symptoms Allergies: Coded Allergies: No Known Allergies (Unverified , 09/14/20) Objective Last 24 Hour Vital Signs Date Time Temp Pulse Resp B/P (MAP) Pulse Ox O2 Delivery O2 Flow Rate FiO2 09/17/20 12:00 81 09/17/20 12:00 97.9 78 18 120/82 (95) 95 09/17/20 09:00 Nasal Cannula 3.0 09/17/20 08:00 97.7 77 18 109/73 (85) 97 09/17/20 08:00 79 09/17/20 07:00 93 Nasal Cannula 2.0 28 09/17/20 07:00 77 16 97 Nasal Cannula 2.0 28 09/17/20 04:00 97.7 78 18 129/77 (94) 95 09/17/20 04:00 77 09/17/20 00:00 79 09/17/20 00:00 97.5 85 19 126/77 (93) 100 09/16/20 21:00 Nasal Cannula 3.0 09/16/20 20:00 90 09/16/20 20:00 97.7 85 19 119/69 (86) 96 Height (Feet): 5 Height (Inches): 5.00 Weight (Pounds): 121 General Appearance: no acute distress HEENT: mucous membranes moist Respiratory/Chest: other - O2 by nasal cannula. 3 L/min Cardiovascular: normal rate Abdomen: soft, non tender Neurologic/Psychiatric: alert, responsive Microbiology Date/Time Source Procedure Growth Status 09/16/20 14:22 Body Fluid Pulmonary Gram Stain - Final Resulted 09/16/20 14:22 Body Fluid Pulmonary Body Fluid Culture - Preliminary NO GROWTH Resulted 09/15/20 08:40 Blood Blood Culture - Preliminary NO GROWTH AFTER 24 HOURS Resulted 09/15/20 08:30 Blood Blood Culture - Preliminary NO GROWTH AFTER 24 HOURS Resulted Laboratory Tests Test 09/16/20 16:35 09/16/20 19:53 09/17/20 04:00 09/17/20 05:00 POC Whole Blood Glucose 168 MG/DL (74-106) H Pending 132 MG/DL (74-106) H White Blood Count 10.9 K/UL (4.8-10.8) H Red Blood Count 3.74 M/UL (4.70-6.10) L Hemoglobin 11.3 G/DL (14.2-18.0) L Hematocrit 34.0 % (42.0-52.0) L Mean Corpuscular Volume 91 FL (80-99) Mean Corpuscular Hemoglobin 30.1 PG (27.0-31.0) Mean Corpuscular Hemoglobin Concent 33.1 G/DL (32.0-36.0) Red Cell Distribution Width 14.7 % (11.6-14.8) Platelet Count 243 K/UL (150-450) Mean Platelet Volume 6.7 FL (6.5-10.1) Neutrophils (%) (Auto) % (45.0-75.0) Lymphocytes (%) (Auto) % (20.0-45.0) Monocytes (%) (Auto) % (1.0-10.0) Eosinophils (%) (Auto) % (0.0-3.0) Basophils (%) (Auto) % (0.0-2.0) Differential Total Cells Counted 100 Neutrophils % (Manual) 89 % (45-75) H Lymphocytes % (Manual) 9 % (20-45) L Monocytes % (Manual) 2 % (1-10) Eosinophils % (Manual) 0 % (0-3) Basophils % (Manual) 0 % (0-2) Band Neutrophils 0 % (0-8) Platelet Estimate Adequate Platelet Morphology Normal Anisocytosis 1+ Sodium Level 135 MMOL/L (136-145) L Potassium Level 4.1 MMOL/L (3.5-5.1) Chloride Level 105 MMOL/L (98-107) Carbon Dioxide Level 23 MMOL/L (21-32) Anion Gap 7 mmol/L (5-15) Blood Urea Nitrogen 16 mg/dL (7-18) Creatinine 0.8 MG/DL (0.55-1.30) Estimat Glomerular Filtration Rate > 60 mL/min (>60) Glucose Level 130 MG/DL (74-106) H Calcium Level 8.6 MG/DL (8.5-10.1) Test 09/17/20 11:21 POC Whole Blood Glucose 106 MG/DL (74-106) Current Medications Medications (Trade) Dose Ordered Sig/Polo Route PRN Reason Start Time Stop Time Status Last Admin Dose Admin Acetaminophen (Tylenol) 650 mg Q4H PRN ORAL Mild Pain (Pain Scale 1-3) 09/14/20 22:15 10/14/20 22:14 09/15/20 16:32 Acetaminophen (Tylenol) 650 mg Q4H PRN ORAL Temp >100.5 09/14/20 22:15 10/14/20 22:14 Albuterol Sulfate (Proventil MDI) 2 puff Q4H PRN INH Shortness of Breath 09/14/20 22:15 12/13/20 22:14 Ascorbic Acid (Vitamin C) 500 mg DAILY ORAL 09/15/20 09:00 10/15/20 08:59 09/17/20 08:42 Dexamethasone Sodium Phosphate (Decadron 10mg/ ml Inj) 6 mg DAILY@1400 IV 09/15/20 14:00 09/24/20 14:01 09/17/20 14:45 Dextrose (Dextrose 50%) 25 ml Q30M PRN IV Hypoglycemia 09/14/20 23:00 12/13/20 22:59 Dextrose (Dextrose 50%) 50 ml Q30M PRN IV Hypoglycemia 09/14/20 23:00 12/13/20 22:59 Diphenhydramine HCl (Benadryl) 25 mg EVERY 4 HOURS PRN IVP Itching 09/14/20 22:15 10/14/20 22:14 Docusate Sodium (Colace) 250 mg DAILY ORAL 09/15/20 09:00 10/15/20 08:59 09/17/20 08:42 Enoxaparin Sodium (Lovenox) 60 mg DAILY SUBQ 09/15/20 09:00 12/14/20 08:59 09/17/20 08:43 Guaifenesin (Mucinex ER) 600 mg TWICE A DAY ORAL 09/15/20 09:00 12/14/20 08:59 09/17/20 08:42 Guaifenesin/ Codeine Phosphate (Robitussin with codeine) 5 ml EVERY 4 HOURS PRN ORAL For Cough 09/14/20 22:15 10/14/20 22:14 09/17/20 11:26 Guaifenesin/ Dextromethorphan (Robitussin DM Syrup) 5 ml Q4H PRN ORAL For Cough 09/14/20 22:15 12/13/20 22:14 Insulin Aspart (NovoLOG) BEFORE MEALS AND HS SUBQ 09/15/20 06:30 12/14/20 06:29 09/16/20 16:45 Ipratropium [place] (Atrovent Inh) 1 puffs EVERY 4 HOURS PRN INH Shortness of Breath 09/14/20 22:15 10/14/20 22:14 09/15/20 17:53 Multivitamins (Multivitamins) 1 tab DAILY ORAL 09/15/20 09:00 10/15/20 08:59 09/17/20 08:41 Ondansetron HCl (Zofran) 4 mg EVERY 4 HOURS PRN IVP Nausea & Vomiting 09/14/20 22:15 10/14/20 22:14 Vitamin D (Vitamin D) 400 unit DAILY ORAL 09/15/20 09:00 10/15/20 08:59 09/17/20 08:42 Zinc Sulfate (Zinc Sulfate) 220 mg DAILY ORAL 09/15/20 09:00 12/14/20 08:59 09/17/20 08:41 Arian Varner MD Sep 17, 2020 16:08
--- NOTE | 2020-09-17 19:22 | NUR ---
NURSE HAND-OFF REPORT: Important Events on Shift: Patient Status: stable Diet: Regular Pending Orders: Pending Results/Labs: Pending MD notification: Latest Vital Signs: Temperature 97.6 , Pulse 70 , B/P 118 /78 , Respiratory Rate 18 , O2 SAT 96 , , O2 Flow Rate 3.0 . Vital Sign Comment: Stable EKG Rhythm: Sinus Rhythm Rhythm change?: N MD Notified?: - MD Response: Latest Harrell Fall Score: 30 Fall Risk: Medium Risk Safety Measures: Call light Within Reach, Bed Alarm , Side Rails Side Rails x2, Bed position Low and Locked. Fall Precautions: Yellow Socks Yellow Gown Report given to Gho/RN.
--- NOTE | 2020-09-17 19:25 | NUR ---
NURSE NOTES: Receive a report from RONAL Flores. Round is made. Pt is awake and alert, [place]ic speaking. Denies pain. No acute distress noted. On O2 4L without respiratory distress. Spo2 96%. Noted intermittent non-productive cough. Encourage deep breathing and cough. IV is right FA H/L. Call light within reach. Will continue to monitor.
[2020-09-17 20:00] VITALS: BP 108/68
--- NOTE | 2020-09-17 21:10 | NUR ---
NURSE NOTES: Pt requests for sleeping medication. Called and spoke to Dr. Alonso. Will give Benadryl 25mg IVS for sleep once. Will continue to follow up.
[2020-09-17] MEDS ORDERED: DiphenhydrAMINE 50mg/ml Inj IVP SCH (21:15)
[2020-09-18] VITALS: BP 120/71
[2020-09-18] MEDS: guaiFENesin w/Codeine 5ml Liq ud ORAL PRN ×4 (00:14→21:05)
[2020-09-18 04:00] VITALS: BP 112/72
[2020-09-18] MEDS: NovoLOG Insulin Flexpen SUBQ SCH ×4 (06:30→21:00)
--- NOTE | 2020-09-18 07:30 | NUR ---
NURSE HAND-OFF REPORT: Important Events on Shift: Robitussin with codeine x1 for coughing, Encourage for active coughing. Patient Status: [stable] Diet: [] Pending Orders: [] Pending Results/Labs:[] Pending MD notification:[] Latest Vital Signs: Temperature 97.5 , Pulse 80 , B/P 112 /72 , Respiratory Rate 18 , O2 SAT 96 , , O2 Flow Rate 4.0 . Vital Sign Comment: [] EKG Rhythm: Sinus Rhythm Rhythm change?: N MD Notified?: - MD Response: Latest Harrell Fall Score: 30 Fall Risk: Medium Risk Safety Measures: Call light Within Reach, Bed Alarm , Side Rails Side Rails x2, Bed position Low and Locked. Fall Precautions: Patient Fall Education Report given to RONAL Flores.
--- NOTE | 2020-09-18 07:45 | NUR ---
NURSE NOTES: Received report from Gho/RN. Pt in bed sleeping, on 4L nasal cannula, no distress or SOB noted. Able to make needs known. IV on right FA 20G, SL, patent and clean. Bed in the lowest position and locked, call light within reach, encouraged to use when needed. Side rail up X3. Will continue plan of care.
[2020-09-18 07:50] LABS: BASOPHILS % (AUTO) 0.3 % (0.0-2.0); HEMATOCRIT 34.6 % (42.0-52.0); HEMOGLOBIN 11.3 G/DL (14.2-18.0); LYMPHOCYTES % (AUTO) 11.5 % (20.0-45.0); MEAN CORPUSCULAR VOLUME 92 FL (80-99); MONOCYTES % (AUTO) 13.1 % (1.0-10.0); NEUTROPHILS % (AUTO) 75.1 % (45.0-75.0); PLATELET COUNT 275 K/UL (150-450); RED BLOOD COUNT 3.75 M/UL (4.70-6.10); RED CELL DISTRIBUTION WIDTH 15.4 % (11.6-14.8); WHITE BLOOD COUNT 9.7 K/UL (4.8-10.8)
[2020-09-18 08:00] VITALS: BP 113/60
--- NOTE | 2020-09-18 08:02 | Pulmonology Progress Note ---
Subjective ROS Limited/Unobtainable: Yes Allergies: Coded Allergies: No Known Allergies (Unverified , 09/14/20) Subjective on 3-4 L O2 via NC reports dry cough, no SOB, no CP s/p thoracentesis 09/16 -150 ml Objective Last 24 Hour Vital Signs Date Time Temp Pulse Resp B/P (MAP) Pulse Ox O2 Delivery O2 Flow Rate FiO2 09/18/20 04:00 80 09/18/20 04:00 97.5 74 18 112/72 (85) 96 09/18/20 00:00 96.3 76 18 120/71 (87) 96 09/18/20 00:00 98 09/17/20 21:00 Nasal Cannula 4.0 09/17/20 20:00 97.3 74 18 108/68 (81) 96 09/17/20 20:00 74 09/17/20 19:50 78 18 96 Nasal Cannula 2.0 28 09/17/20 19:50 96 Nasal Cannula 2.0 28 09/17/20 16:00 97.6 78 18 118/78 (91) 96 09/17/20 16:00 70 09/17/20 12:00 81 09/17/20 12:00 97.9 78 18 120/82 (95) 95 09/17/20 09:00 Nasal Cannula 3.0 09/17/20 08:00 97.7 77 18 109/73 (85) 97 09/17/20 08:00 79 Intake and Output 09/17/20 09/18/20 19:00 07:00 Intake Total 600 ml 300 ml Output Total 700 ml 600 ml Balance -100 ml -300 ml Intake Oral 600 ml 300 ml Output Urine Total 700 ml 600 ml General Appearance: no acute distress HEENT: normocephalic, atraumatic, anicteric, mucous membranes moist, PERRL, other - O2 3 L-4 L via NC Respiratory: decreased breath sounds Cardiovascular: normal rate, regular rhythm Abdomen: soft, non tender Extremities: no edema, pedal pulses normal Skin: other - BLE reddishn/brown hyperpigmentation 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, no motor/sensory deficits, alert, oriented x 3, responsive Musculoskeletal: normal muscle bulk Microbiology Date/Time Source Procedure Growth Status 09/16/20 14:22 Body Fluid Pulmonary Gram Stain - Final Resulted 09/16/20 14:22 Body Fluid Pulmonary Body Fluid Culture - Preliminary NO GROWTH AFTER 24 HOURS Resulted 09/15/20 08:40 Blood Blood Culture - Preliminary NO GROWTH AFTER 48 HOURS Resulted 09/15/20 08:30 Blood Blood Culture - Preliminary NO GROWTH AFTER 48 HOURS Resulted Laboratory Tests 09/17/20 11:21: POC Whole Blood Glucose 106 09/17/20 16:50: POC Whole Blood Glucose 139H 09/17/20 21:21: POC Whole Blood Glucose 143H 09/18/20 06:27: POC Whole Blood Glucose 133H 09/18/20 06:45: White Blood Count 9.7, Red Blood Count 3.75L, Hemoglobin 11.3L, Hematocrit 34.6L , Mean Corpuscular Volume 92, Mean Corpuscular Hemoglobin 30.0, Mean Corpuscular Hemoglobin Concent 32.5, Red Cell Distribution Width 15.4H, Platelet Count 275, Mean Platelet Volume 6.8, Neutrophils (%) (Auto) 75.1H, Lymphocytes (%) (Auto) 11.5L, Monocytes (%) (Auto) 13.1H, Eosinophils (%) (Auto) 0.0, Basophils (%) (Auto) 0.3, C-Reactive Protein, Quantitative [Pending] Current Medications Medications (Trade) Dose Ordered Sig/Polo Route PRN Reason Start Time Stop Time Status Last Admin Dose Admin Acetaminophen (Tylenol) 650 mg Q4H PRN ORAL Mild Pain (Pain Scale 1-3) 09/14/20 22:15 10/14/20 22:14 09/15/20 16:32 Acetaminophen (Tylenol) 650 mg Q4H PRN ORAL Temp >100.5 09/14/20 22:15 10/14/20 22:14 Albuterol Sulfate (Proventil MDI) 2 puff Q4H PRN INH Shortness of Breath 09/14/20 22:15 12/13/20 22:14 Ascorbic Acid (Vitamin C) 500 mg DAILY ORAL 09/15/20 09:00 10/15/20 08:59 09/17/20 08:42 Dexamethasone Sodium Phosphate (Decadron 10mg/ ml Inj) 6 mg DAILY@1400 IV 09/15/20 14:00 09/24/20 14:01 09/17/20 14:45 Dextrose (Dextrose 50%) 25 ml Q30M PRN IV Hypoglycemia 09/14/20 23:00 12/13/20 22:59 Dextrose (Dextrose 50%) 50 ml Q30M PRN IV Hypoglycemia 09/14/20 23:00 12/13/20 22:59 Diphenhydramine HCl (Benadryl) 25 mg EVERY 4 HOURS PRN IVP Itching 09/14/20 22:15 10/14/20 22:14 Docusate Sodium (Colace) 250 mg DAILY ORAL 09/15/20 09:00 10/15/20 08:59 09/17/20 08:42 Enoxaparin Sodium (Lovenox) 60 mg DAILY SUBQ 09/15/20 09:00 12/14/20 08:59 09/17/20 08:43 Guaifenesin (Mucinex ER) 600 mg TWICE A DAY ORAL 09/15/20 09:00 12/14/20 08:59 09/17/20 18:06 Guaifenesin/ Codeine Phosphate (Robitussin with codeine) 5 ml EVERY 4 HOURS PRN ORAL For Cough 09/14/20 22:15 10/14/20 22:14 09/18/20 00:14 Guaifenesin/ Dextromethorphan (Robitussin DM Syrup) 5 ml Q4H PRN ORAL For Cough 09/14/20 22:15 12/13/20 22:14 Insulin Aspart (NovoLOG) BEFORE MEALS AND HS SUBQ 09/15/20 06:30 12/14/20 06:29 09/17/20 21:29 Ipratropium [place] (Atrovent Inh) 1 puffs EVERY 4 HOURS PRN INH Shortness of Breath 09/14/20 22:15 10/14/20 22:14 09/15/20 17:53 Multivitamins (Multivitamins) 1 tab DAILY ORAL 09/15/20 09:00 10/15/20 08:59 09/17/20 08:41 Ondansetron HCl (Zofran) 4 mg EVERY 4 HOURS PRN IVP Nausea & Vomiting 09/14/20 22:15 10/14/20 22:14 Vitamin D (Vitamin D) 400 unit DAILY ORAL 09/15/20 09:00 10/15/20 08:59 09/17/20 08:42 Zinc Sulfate (Zinc Sulfate) 220 mg DAILY ORAL 09/15/20 09:00 12/14/20 08:59 09/17/20 08:41 Assessment/Plan Assessment/Plan ASSESSMENT COVID PNA Hypoxia Large left effusion, possibly loculated, with associated compressive atelectasis s/p thoracentesis 09/16 -> 150 ml Lymphadenopathy r/o possible malignancy Anemia Diarrhea Elevated AST, likely due to liver cirrhosis Hypoalbuminemia DM hx of ETOH PLAN OF CARE tele Date of sx onset: 2 wks prior to presentation to ED Positive test: 09/14 rapid COVID 19 O2 3-4 L NC HFA Dex Day# 5( 09/14 -) consider REM -> per ID recs s/p Ivermectin encourage prone position as tolerated DVT PPX: Lovenox D dimer 5.24 Trend CRP 8.3 -pending CTA-> no PE, but large left ( likely loculated) pl effusion s/p tap 09/16 -> 150 ml ( effusion largely loculated) pleural cx NGTD, fluid analysis noted cytology pending CXR post tap-no PTX fup CXR for this am no abx as per ID recs a/tussive prn supportive care : vitamin D, A, , zinc anemia w/up, CEA-5.6 stool OB ESR high monitor HH with goal to keep Hgb > 7 trend LFT-AST trending down BS management with SSI GI prophylaxis Monitor volumes and renal function Fup with consultants recs FC Discuss GOC case discussed and evaluated by supervising physician Maya Real NP Sep 18, 2020 08:02
[2020-09-18] MEDS: Docusate 250mg cap ORAL SCH (08:29)
[2020-09-18] MEDS: Zinc Sulfate 220mg ORAL SCH (08:29)
[2020-09-18] MEDS: Vitamin D 400 units TAB ORAL SCH (08:29)
[2020-09-18] MEDS: guaiFENesin ER 600mg tab ORAL SCH ×2 (08:29→17:19)
[2020-09-18] MEDS: Ascorbic Acid 500mg tab ORAL SCH (08:30)
[2020-09-18] MEDS: Enoxaparin 60mg Inj SUBQ SCH (08:31)
--- NOTE | 2020-09-18 10:28 | Diagnostic Imaging Report ---
EXAM: XR Chest, 1 View CLINICAL HISTORY: F/U TECHNIQUE: Frontal view of the chest. COMPARISON: Chest radiograph on 09/16/2020 FINDINGS: Hardware: None. Lungs/pleura: Slightly increased opacities bilaterally. Stable small left pleural effusion. Heart/mediastinum: Stable mild enlargement of the cardiac silhouette. Soft tissues: Unremarkable. Bones: No acute fracture. Upper abdomen: Normal. IMPRESSION: Slightly increased opacities bilaterally. Stable small left pleural effusion.
[2020-09-18 12:00] VITALS: BP 110/62
[2020-09-18] MEDS: dexAMETHasone 10mg/ml Inj IV SCH (13:32)
--- NOTE | 2020-09-18 13:37 | Surgery Progress Note ---
Surgery Progress Note Subjective Additional Comments Pt in bed sleeping, on 4L nasal cannula, no distress or SOB noted. Lungs/pleura: Slightly increased opacities bilaterally. Stable small left pleural effusion. Heart/mediastinum: Stable mild enlargement of the cardiac silhouette. Soft tissues: Unremarkable. Bones: No acute fracture. Upper abdomen: Normal. IMPRESSION: Slightly increased opacities bilaterally. Stable small left pleural effusion. Objective Last 24 Hour Vital Signs Date Time Temp Pulse Resp B/P (MAP) Pulse Ox O2 Delivery O2 Flow Rate FiO2 09/18/20 12:00 100 09/18/20 12:00 97.8 76 17 110/62 (78) 97 09/18/20 09:00 Nasal Cannula 3.0 09/18/20 08:00 66 09/18/20 08:00 97.6 80 20 113/60 (77) 98 09/18/20 04:00 80 09/18/20 04:00 97.5 74 18 112/72 (85) 96 09/18/20 00:00 96.3 76 18 120/71 (87) 96 09/18/20 00:00 98 09/17/20 21:00 Nasal Cannula 4.0 09/17/20 20:00 97.3 74 18 108/68 (81) 96 09/17/20 20:00 74 09/17/20 19:50 78 18 96 Nasal Cannula 2.0 28 09/17/20 19:50 96 Nasal Cannula 2.0 28 09/17/20 16:00 97.6 78 18 118/78 (91) 96 09/17/20 16:00 70 I&O Intake and Output 09/17/20 09/18/20 19:00 07:00 Intake Total 600 ml 300 ml Output Total 700 ml 600 ml Balance -100 ml -300 ml Intake Oral 600 ml 300 ml Output Urine Total 700 ml 600 ml Dressing: saturated Cardiovascular: RSR Respiratory: decreased breath sounds Abdomen: soft, non-tender, present bowel sounds Extremities: no edema, no tenderness, no cyanosis Laboratory Tests Test 09/17/20 16:50 09/17/20 21:21 09/18/20 06:27 09/18/20 06:45 POC Whole Blood Glucose 139 MG/DL (74-106) H 143 MG/DL (74-106) H 133 MG/DL (74-106) H White Blood Count 9.7 K/UL (4.8-10.8) Red Blood Count 3.75 M/UL (4.70-6.10) L Hemoglobin 11.3 G/DL (14.2-18.0) L Hematocrit 34.6 % (42.0-52.0) L Mean Corpuscular Volume 92 FL (80-99) Mean Corpuscular Hemoglobin 30.0 PG (27.0-31.0) Mean Corpuscular Hemoglobin Concent 32.5 G/DL (32.0-36.0) Red Cell Distribution Width 15.4 % (11.6-14.8) H Platelet Count 275 K/UL (150-450) Mean Platelet Volume 6.8 FL (6.5-10.1) Neutrophils (%) (Auto) 75.1 % (45.0-75.0) H Lymphocytes (%) (Auto) 11.5 % (20.0-45.0) L Monocytes (%) (Auto) 13.1 % (1.0-10.0) H Eosinophils (%) (Auto) 0.0 % (0.0-3.0) Basophils (%) (Auto) 0.3 % (0.0-2.0) C-Reactive Protein, Quantitative 2.6 mg/dL (0.00-0.90) H Test 09/18/20 11:08 POC Whole Blood Glucose Pending Plan Problems: (1) Pleural effusion Assessment & Plan: 59 male Covid positive respiratory shortness of breath identified to have massive pleural effusion left. Potentially loculated collection is identified on CT. We will begin with thoracentesis interventional radiology May require a chest tube as needed If significantly loculated or empyema or worsening will discuss with thoracic surgery Continue IV antibiotics per infectious disease Thank you will follow the recommendations pulmonary arteries are adequately opacified. No definite intraluminal filling defects or other findings to suggest acute pulmonary embolus are evident. No evidence of pulmonary arterial dilatation or right ventricular dilatation. No evidence of thoracic aortic aneurysm or dissection. Normal caliber and branching anatomy of the great neck vessels. There is a massive left pleural effusion. This demonstrates marked thickening and some enhancement of the of the pleural surface. There is a significant nondependent component anteriorly. This results in compressive atelectasis of significant portions of the left lower lobe and some of the left upper lobe. Multiple focal groundglass opacities are seen scattered throughout the right lung in a mostly peripheral distribution. No right pleural effusion is demonstrated. No right lung mass demonstrated. Prominent but not frankly enlarged right hilar nodes are demonstrated. Numerous prominent mediastinal nodes are demonstrated, particularly numerous in the prevascular space. The esophagus is unremarkable. The thyroid is unremarkable. Included upper abdominal anatomy demonstrates hepatic surface nodularity. Impression: No definite evidence of acute pulmonary embolus or other acute thoracic vascular pathology. Multifocal groundglass opacities in the right lung. This is concerning for multifocal pneumonia, likely viral Massive left pleural effusion. Presumably chronic and likely loculated, given the presence of considerable pleural thickening Considerable left lung parenchymal atelectasis related to the above Numerous and prominent mediastinal lymph nodes may indicate lymphadenopathy. Appearance nonspecific as regards etiology Evidence of hepatic cirrhosis Ultrasound used to localize optimal puncture site. Sterile prepping and draping left chest. Local anesthesia with 1% lidocaine. Under real-time ultrasound guidance, puncture pleural space using thoracentesis needle. Stylet removed. Catheter placed to vacuum bottle suction. Total 150 milliliters of cloudy yellow fluid aspirated. Specimen sent to the lab. Patient tolerated procedure well, without immediate complication. Findings: Initial sonography demonstrates heavily loculated septated fluid. Followup sonography demonstrates persistent pleural fluid Impression: Successful ultrasound-guided thoracentesis, yielding 150 milliliters of fluid. Note that fluid was incompletely evacuated, presumably due to collection being heavily loculated Lungs/pleura: Slightly increased opacities bilaterally. Stable small left pleural effusion. Heart/mediastinum: Stable mild enlargement of the cardiac silhouette. Soft tissues: Unremarkable. Bones: No acute fracture. Upper abdomen: Normal. IMPRESSION: Slightly increased opacities bilaterally. Stable small left pleural effusion. (2) Hypoxia (3) Coronavirus infection Assessment & Plan: ++ as per ID and pulm Roman Conway Sep 18, 2020 13:37
[2020-09-18 16:00] VITALS: BP 119/70
--- NOTE | 2020-09-18 19:16 | NUR ---
NURSE HAND-OFF REPORT: Important Events on Shift: Patient Status: stable Diet: Regular Pending Orders: Pending Results/Labs: Pending MD notification: Latest Vital Signs: Temperature 98.2 , Pulse 87 , B/P 119 /70 , Respiratory Rate 20 , O2 SAT 100 , , O2 Flow Rate 3.0 . Vital Sign Comment: Stable EKG Rhythm: Sinus Rhythm Rhythm change?: N MD Notified?: - MD Response: Latest Harrell Fall Score: 30 Fall Risk: Medium Risk Safety Measures: Call light Within Reach, Bed Alarm , Side Rails Side Rails x2, Bed position Low and Locked. Fall Precautions: Patient Fall Education Report given to Gho/RN.
--- NOTE | 2020-09-18 19:20 | NUR ---
NURSE NOTES: Receive a report from RONAL Flores. Pt is awake and alert. No acute distress noted. Change O2 from 4L to 2L and spo2 95 % without respiratory distress. Still noted intermittent non-productive cough. Will provide prn cough medication as ordered. Call light within reach. Will continue to monitor.
[2020-09-18 20:00] VITALS: BP 116/73
[2020-09-19] VITALS: BP 123/79
[2020-09-19 04:00] VITALS: BP 137/61
[2020-09-19] MEDS: NovoLOG Insulin Flexpen SUBQ SCH ×4 (05:53→21:15)
[2020-09-19] MEDS: guaiFENesin w/Codeine 5ml Liq ud ORAL PRN (06:09)
--- NOTE | 2020-09-19 06:58 | NUR ---
CASE MANAGEMENT:REVIEW 09/19/20 SI: COVID PNA. ROSAURA INFILTRATES HEAVILY LOCULATED PLEURAL EFFUSION...S/P THORACENTESIS 150ML 97.6 74 20 137/61 93% ON 2L/NC IS: IV DECADRON QD MUCINEX PO BID LOVENOX SQ QD VIT D PO QD ZINC PO QD VIT C PO QD : TELEMETRY STATUS DCP: FROM HOME PLAN: THORACENTESIS WAS INCOMPLETE D/T BEING HEAVILY LOCULATED
[2020-09-19 07:15] LABS: BASOPHILS % (AUTO) 0.4 % (0.0-2.0); EOSINOPHILS % (AUTO) 0.1 % (0.0-3.0); HEMATOCRIT 33.2 % (42.0-52.0); LYMPHOCYTES % (AUTO) 14.2 % (20.0-45.0); MEAN CORPUSCULAR VOLUME 91 FL (80-99); MONOCYTES % (AUTO) 10.8 % (1.0-10.0); NEUTROPHILS % (AUTO) 74.6 % (45.0-75.0); PLATELET COUNT 238 K/UL (150-450); RED BLOOD COUNT 3.64 M/UL (4.70-6.10); RED CELL DISTRIBUTION WIDTH 14.9 % (11.6-14.8); WHITE BLOOD COUNT 8.6 K/UL (4.8-10.8)
--- NOTE | 2020-09-19 07:15 | NUR ---
NURSE HAND-OFF REPORT: Important Events on Shift: Non-productive cough-given Rubittusin with codeine x2. BS stable. Pt remains spo2 94% in RA. Patient Status: [stable] Diet: [regular] Pending Orders: [] Pending Results/Labs:[] Pending MD notification:[] Latest Vital Signs: Temperature 97.6 , Pulse 74 , B/P 137 /61 , Respiratory Rate 20 , O2 SAT 93 , , O2 Flow Rate 2.0 . Vital Sign Comment: [] EKG Rhythm: Sinus Rhythm Rhythm change?: N MD Notified?: - MD Response: Latest Harrell Fall Score: 30 Fall Risk: Medium Risk Safety Measures: Call light Within Reach, Bed Alarm , Side Rails Side Rails x2, Bed position Low and Locked. Fall Precautions: Patient Fall Education Report given to RONAL Goins.
--- NOTE | 2020-09-19 07:29 | NUR ---
NURSE NOTES: Pt received from Gho RN. Pt in bed resting, no distress noted. Bed low and locked with the call light within reach. No complaint of pain at this time.
[2020-09-19 07:32] LABS: ANION GAP 7 mmol/L (5-15); BLOOD UREA NITROGEN 15 mg/dL (7-18); CALCIUM 8.4 MG/DL (8.5-10.1); CARBON DIOXIDE 25 MMOL/L (21-32); CHLORIDE 101 MMOL/L (98-107); CREATININE 0.7 MG/DL (0.55-1.30); POTASSIUM 3.9 MMOL/L (3.5-5.1); SODIUM 133 MMOL/L (136-145)
[2020-09-19 08:00] VITALS: BP 109/69
[2020-09-19] MEDS: Vitamin D 400 units TAB ORAL SCH (08:19)
[2020-09-19] MEDS: guaiFENesin ER 600mg tab ORAL SCH ×2 (08:19→17:32)
[2020-09-19] MEDS: Zinc Sulfate 220mg ORAL SCH (08:19)
[2020-09-19] MEDS: Docusate 250mg cap ORAL SCH (08:19)
[2020-09-19] MEDS: Ascorbic Acid 500mg tab ORAL SCH (08:19)
[2020-09-19] MEDS: Enoxaparin 60mg Inj SUBQ SCH (08:20)
--- NOTE | 2020-09-19 10:57 | Infectious Diseases Prog Note ---
Assessment/Plan Assessment/Plan antibiotics : none A 1. covid 19 pneumonia on room air with O2 94 % saturation s/p ivermectin 2. diabetes mellitus 3. cirrhosis P 1. continue dexamethasone day 6 2. continue isolation Subjective Constitutional: Denies: fever, chills Respiratory: Reports: shortness of breath, dry cough - mild Gastrointestinal/Abdominal: Denies: nausea, vomiting, diarrhea Musculoskeletal: Denies: pain Allergies: Coded Allergies: No Known Allergies (Unverified , 09/14/20) Objective Last 24 Hour Vital Signs Date Time Temp Pulse Resp B/P (MAP) Pulse Ox O2 Delivery O2 Flow Rate FiO2 09/19/20 09:00 Room Air 09/19/20 08:00 85 09/19/20 08:00 97.5 76 20 109/69 (82) 94 09/19/20 04:00 97.6 74 20 137/61 (86) 93 09/19/20 04:00 71 09/19/20 00:00 68 09/19/20 00:00 97.1 68 20 123/79 (94) 96 09/18/20 21:00 Nasal Cannula 2.0 09/18/20 20:16 82 18 97 Nasal Cannula 2.0 28 09/18/20 20:16 97 Nasal Cannula 2.0 28 09/18/20 20:00 80 09/18/20 20:00 98.7 75 20 116/73 (87) 95 09/18/20 16:00 98.2 96 20 119/70 (86) 100 09/18/20 16:00 87 09/18/20 12:00 100 09/18/20 12:00 97.8 76 17 110/62 (78) 97 Height (Feet): 5 Height (Inches): 5.00 Weight (Pounds): 121 Microbiology Date/Time Source Procedure Growth Status 09/16/20 14:22 Body Fluid Pulmonary Gram Stain - Final Resulted 09/16/20 14:22 Body Fluid Pulmonary Body Fluid Culture - Preliminary NO GROWTH AFTER 48 HOURS Resulted Laboratory Tests Test 09/18/20 11:08 09/18/20 15:52 09/18/20 21:08 09/19/20 04:50 POC Whole Blood Glucose Pending 134 MG/DL (74-106) H 137 MG/DL (74-106) H White Blood Count 8.6 K/UL (4.8-10.8) Red Blood Count 3.64 M/UL (4.70-6.10) L Hemoglobin 11.0 G/DL (14.2-18.0) L Hematocrit 33.2 % (42.0-52.0) L Mean Corpuscular Volume 91 FL (80-99) Mean Corpuscular Hemoglobin 30.2 PG (27.0-31.0) Mean Corpuscular Hemoglobin Concent 33.2 G/DL (32.0-36.0) Red Cell Distribution Width 14.9 % (11.6-14.8) H Platelet Count 238 K/UL (150-450) Mean Platelet Volume 7.3 FL (6.5-10.1) Neutrophils (%) (Auto) 74.6 % (45.0-75.0) Lymphocytes (%) (Auto) 14.2 % (20.0-45.0) L Monocytes (%) (Auto) 10.8 % (1.0-10.0) H Eosinophils (%) (Auto) 0.1 % (0.0-3.0) Basophils (%) (Auto) 0.4 % (0.0-2.0) Sodium Level 133 MMOL/L (136-145) L Potassium Level 3.9 MMOL/L (3.5-5.1) Chloride Level 101 MMOL/L (98-107) Carbon Dioxide Level 25 MMOL/L (21-32) Anion Gap 7 mmol/L (5-15) Blood Urea Nitrogen 15 mg/dL (7-18) Creatinine 0.7 MG/DL (0.55-1.30) Estimat Glomerular Filtration Rate > 60 mL/min (>60) Glucose Level 101 MG/DL (74-106) Calcium Level 8.4 MG/DL (8.5-10.1) L Test 09/19/20 05:00 POC Whole Blood Glucose 117 MG/DL (74-106) H Current Medications Medications (Trade) Dose Ordered Sig/Polo Route PRN Reason Start Time Stop Time Status Last Admin Dose Admin Acetaminophen (Tylenol) 650 mg Q4H PRN ORAL Mild Pain (Pain Scale 1-3) 09/14/20 22:15 10/14/20 22:14 09/15/20 16:32 Acetaminophen (Tylenol) 650 mg Q4H PRN ORAL Temp >100.5 09/14/20 22:15 10/14/20 22:14 Albuterol Sulfate (Proventil MDI) 2 puff Q4H PRN INH Shortness of Breath 09/14/20 22:15 12/13/20 22:14 Ascorbic Acid (Vitamin C) 500 mg DAILY ORAL 09/15/20 09:00 10/15/20 08:59 09/19/20 08:19 Dexamethasone Sodium Phosphate (Decadron 10mg/ ml Inj) 6 mg DAILY@1400 IV 09/15/20 14:00 09/24/20 14:01 09/18/20 13:32 Dextrose (Dextrose 50%) 25 ml Q30M PRN IV Hypoglycemia 09/14/20 23:00 12/13/20 22:59 Dextrose (Dextrose 50%) 50 ml Q30M PRN IV Hypoglycemia 09/14/20 23:00 12/13/20 22:59 Diphenhydramine HCl (Benadryl) 25 mg EVERY 4 HOURS PRN IVP Itching 09/14/20 22:15 10/14/20 22:14 Docusate Sodium (Colace) 250 mg DAILY ORAL 09/15/20 09:00 10/15/20 08:59 09/19/20 08:19 Enoxaparin Sodium (Lovenox) 60 mg DAILY SUBQ 09/15/20 09:00 12/14/20 08:59 09/19/20 08:20 Guaifenesin (Mucinex ER) 600 mg TWICE A DAY ORAL 09/15/20 09:00 12/14/20 08:59 09/19/20 08:19 Guaifenesin/ Codeine Phosphate (Robitussin with codeine) 5 ml EVERY 4 HOURS PRN ORAL For Cough 09/14/20 22:15 10/14/20 22:14 09/19/20 06:09 Guaifenesin/ Dextromethorphan (Robitussin DM Syrup) 5 ml Q4H PRN ORAL For Cough 09/14/20 22:15 12/13/20 22:14 Insulin Aspart (NovoLOG) BEFORE MEALS AND HS SUBQ 09/15/20 06:30 12/14/20 06:29 09/17/20 21:29 Ipratropium [place] (Atrovent Inh) 1 puffs EVERY 4 HOURS PRN INH Shortness of Breath 09/14/20 22:15 10/14/20 22:14 09/15/20 17:53 Multivitamins (Multivitamins) 1 tab DAILY ORAL 09/15/20 09:00 10/15/20 08:59 09/19/20 08:19 Ondansetron HCl (Zofran) 4 mg EVERY 4 HOURS PRN IVP Nausea & Vomiting 09/14/20 22:15 10/14/20 22:14 Vitamin D (Vitamin D) 400 unit DAILY ORAL 09/15/20 09:00 10/15/20 08:59 09/19/20 08:19 Zinc Sulfate (Zinc Sulfate) 220 mg DAILY ORAL 09/15/20 09:00 12/14/20 08:59 09/19/20 08:19 Gena Caceres MD Sep 19, 2020 10:57
--- NOTE | 2020-09-19 11:55 | Surgery Progress Note ---
Surgery Progress Note Subjective Additional Comments afebrilek HD stable labs improved feels well wants to go home diet okay no n/v respiratory improved Objective Last 24 Hour Vital Signs Date Time Temp Pulse Resp B/P (MAP) Pulse Ox O2 Delivery O2 Flow Rate FiO2 09/19/20 09:00 Room Air 09/19/20 08:00 85 09/19/20 08:00 97.5 76 20 109/69 (82) 94 09/19/20 04:00 97.6 74 20 137/61 (86) 93 09/19/20 04:00 71 09/19/20 00:00 68 09/19/20 00:00 97.1 68 20 123/79 (94) 96 09/18/20 21:00 Nasal Cannula 2.0 09/18/20 20:16 82 18 97 Nasal Cannula 2.0 28 09/18/20 20:16 97 Nasal Cannula 2.0 28 09/18/20 20:00 80 09/18/20 20:00 98.7 75 20 116/73 (87) 95 09/18/20 16:00 98.2 96 20 119/70 (86) 100 09/18/20 16:00 87 09/18/20 12:00 100 09/18/20 12:00 97.8 76 17 110/62 (78) 97 I&O Intake and Output 09/18/20 09/19/20 19:00 07:00 Intake Total 520 ml 450 ml Output Total 700 ml 750 ml Balance -180 ml -300 ml Intake Oral 520 ml 450 ml Output Urine Total 700 ml 750 ml Cardiovascular: RSR Respiratory: clear, decreased breath sounds Abdomen: soft, non-tender, present bowel sounds, non-distended Extremities: no edema, no tenderness, no cyanosis Laboratory Tests Test 09/18/20 15:52 09/18/20 21:08 09/19/20 04:50 09/19/20 05:00 POC Whole Blood Glucose 134 MG/DL (74-106) H 137 MG/DL (74-106) H 117 MG/DL (74-106) H White Blood Count 8.6 K/UL (4.8-10.8) Red Blood Count 3.64 M/UL (4.70-6.10) L Hemoglobin 11.0 G/DL (14.2-18.0) L Hematocrit 33.2 % (42.0-52.0) L Mean Corpuscular Volume 91 FL (80-99) Mean Corpuscular Hemoglobin 30.2 PG (27.0-31.0) Mean Corpuscular Hemoglobin Concent 33.2 G/DL (32.0-36.0) Red Cell Distribution Width 14.9 % (11.6-14.8) H Platelet Count 238 K/UL (150-450) Mean Platelet Volume 7.3 FL (6.5-10.1) Neutrophils (%) (Auto) 74.6 % (45.0-75.0) Lymphocytes (%) (Auto) 14.2 % (20.0-45.0) L Monocytes (%) (Auto) 10.8 % (1.0-10.0) H Eosinophils (%) (Auto) 0.1 % (0.0-3.0) Basophils (%) (Auto) 0.4 % (0.0-2.0) Sodium Level 133 MMOL/L (136-145) L Potassium Level 3.9 MMOL/L (3.5-5.1) Chloride Level 101 MMOL/L (98-107) Carbon Dioxide Level 25 MMOL/L (21-32) Anion Gap 7 mmol/L (5-15) Blood Urea Nitrogen 15 mg/dL (7-18) Creatinine 0.7 MG/DL (0.55-1.30) Estimat Glomerular Filtration Rate > 60 mL/min (>60) Glucose Level 101 MG/DL (74-106) Calcium Level 8.4 MG/DL (8.5-10.1) L Plan Problems: (1) Pleural effusion Assessment & Plan: 59 male Covid positive respiratory shortness of breath identified to have massive pleural effusion left. Potentially loculated collection is identified on CT. We will begin with thoracentesis interventional radiology May require a chest tube as needed If significantly loculated or empyema or worsening will discuss with thoracic surgery Continue IV antibiotics per infectious disease Thank you will follow the recommendations pulmonary arteries are adequately opacified. No definite intraluminal filling defects or other findings to suggest acute pulmonary embolus are eviden t. No evidence of pulmonary arterial dilatation or right ventricular dilatation. No evidence of thoracic aortic aneurysm or dissection. Normal caliber and branching anatomy of the great neck vessels. There is a massive left pleural effusion. This demonstrates marked thickening and some enhancement of the of the pleural surface. There is a significant nondependent component anteriorly. This results in compressive atelectasis of significant portions of the left lower lobe and some of the left upper lobe. Multiple focal groundglass opacities are seen scattered throughout the right lung in a mostly peripheral distribution. No right pleural effusion is demonstrated. No right lung mass demonstrated. Prominent but not frankly enlarged right hilar nodes are demonstrated. Numerous prominent mediastinal nodes are demonstrated, particularly numerous in the prevascular space. The esophagus is unremarkable. The thyroid is unremarkable. Included upper abdominal anatomy demonstrates hepatic surface nodularity. Impression: No definite evidence of acute pulmonary embolus or other acute thoracic vascular pathology. Multifocal groundglass opacities in the right lung. This is concerning for multifocal pneumonia, likely viral Massive left pleural effusion. Presumably chronic and likely loculated, given the presence of considerable pleural thickening Considerable left lung parenchymal atelectasis related to the above Numerous and prominent mediastinal lymph nodes may indicate lymphadenopathy. Appearance nonspecific as regards etiology Evidence of hepatic cirrhosis Ultrasound used to localize optimal puncture site. Sterile prepping and draping left chest. Local anesthesia with 1% lidocaine. Under real-time ultrasound guidance, puncture pleural space using thoracentesis needle. Stylet removed. Catheter placed to vacuum bottle suction. Total 150 milliliters of cloudy yellow fluid aspirated. Specimen sent to the lab. Patient tolerated procedure well, without immediate complication. Findings: Initial sonography demonstrates heavily loculated septated fluid. Followup sonography demonstrates persistent pleural fluid Impression: Successful ultrasound-guided thoracentesis, yielding 150 milliliters of fluid. Note that fluid was incompletely evacuated, presumably due to collection being heavily loculated Lungs/pleura: Slightly increased opacities bilaterally. Stable small left pleural effusion. Heart/mediastinum: Stable mild enlargement of the cardiac silhouette. Soft tissues: Unremarkable. Bones: No acute fracture. Upper abdomen: Normal. IMPRESSION: Slightly increased opacities bilaterally. Stable small left pleural effusion. (2) Hypoxia (3) Coronavirus infection Assessment & Plan: ++ as per ID and pulm Roman Conway Sep 19, 2020 11:55
[2020-09-19 12:00] VITALS: BP_SYST 107; BP_SYST 117; BP_DIAS 56; BP_DIAS 76
[2020-09-19] MEDS: dexAMETHasone 10mg/ml Inj IV SCH (13:05)
[2020-09-19 16:00] VITALS: BP 107/68
--- NOTE | 2020-09-19 16:48 | Pulmonology Progress Note ---
Subjective ROS Limited/Unobtainable: Yes Constitutional: Denies: fever, chills Gastrointestinal/Abdominal: Denies: nausea, vomiting, diarrhea Musculoskeletal: Denies: pain Allergies: Coded Allergies: No Known Allergies (Unverified , 09/14/20) Subjective AFVSS on RA Feels better Less SOB less cough no FC no CP Pleural fluid cytology neg Objective Last 24 Hour Vital Signs Date Time Temp Pulse Resp B/P (MAP) Pulse Ox O2 Delivery O2 Flow Rate FiO2 09/19/20 16:00 97.4 73 20 107/68 (81) 95 09/19/20 16:00 66 09/19/20 12:00 97.4 73 20 117/76 (90) 94 09/19/20 12:00 65 09/19/20 09:00 Room Air 09/19/20 08:00 85 09/19/20 08:00 97.5 76 20 109/69 (82) 94 09/19/20 04:00 97.6 74 20 137/61 (86) 93 09/19/20 04:00 71 09/19/20 00:00 68 09/19/20 00:00 97.1 68 20 123/79 (94) 96 09/18/20 21:00 Nasal Cannula 2.0 09/18/20 20:16 82 18 97 Nasal Cannula 2.0 28 09/18/20 20:16 97 Nasal Cannula 2.0 28 09/18/20 20:00 80 09/18/20 20:00 98.7 75 20 116/73 (87) 95 Intake and Output 09/18/20 09/19/20 19:00 07:00 Intake Total 520 ml 450 ml Output Total 700 ml 750 ml Balance -180 ml -300 ml Intake Oral 520 ml 450 ml Output Urine Total 700 ml 750 ml General Appearance: no acute distress HEENT: normocephalic, atraumatic, anicteric, mucous membranes moist, PERRL, other - O2 3 L-4 L via NC Respiratory: decreased breath sounds Cardiovascular: normal rate, regular rhythm Abdomen: soft, non tender Extremities: no edema, pedal pulses normal Skin: other - BLE reddishn/brown hyperpigmentation 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, no motor/sensory deficits, alert, oriented x 3, responsive Musculoskeletal: normal muscle bulk Laboratory Tests 09/18/20 21:08: POC Whole Blood Glucose 137H 09/19/20 04:50: White Blood Count 8.6, Red Blood Count 3.64L, Hemoglobin 11.0L, Hematocrit 33.2L , Mean Corpuscular Volume 91, Mean Corpuscular Hemoglobin 30.2, Mean Corpuscular Hemoglobin Concent 33.2, Red Cell Distribution Width 14.9H, Platelet Count 238, Mean Platelet Volume 7.3, Neutrophils (%) (Auto) 74.6, Lymphocytes (%) (Auto) 14.2L, Monocytes (%) (Auto) 10.8H, Eosinophils (%) (Auto) 0.1, Basophils (%) (Auto) 0.4, Sodium Level 133L, Potassium Level 3.9, Chloride Level 101, Carbon Dioxide Level 25, Anion Gap 7, Blood Urea Nitrogen 15, Creatinine 0.7, Estimat Glomerular Filtration Rate > 60, Glucose Level 101, Calcium Level 8.4L 09/19/20 05:00: POC Whole Blood Glucose 117H Current Medications Medications (Trade) Dose Ordered Sig/Polo Route PRN Reason Start Time Stop Time Status Last Admin Dose Admin Acetaminophen (Tylenol) 650 mg Q4H PRN ORAL Mild Pain (Pain Scale 1-3) 09/14/20 22:15 10/14/20 22:14 09/15/20 16:32 Acetaminophen (Tylenol) 650 mg Q4H PRN ORAL Temp >100.5 09/14/20 22:15 10/14/20 22:14 Albuterol Sulfate (Proventil MDI) 2 puff Q4H PRN INH Shortness of Breath 09/14/20 22:15 12/13/20 22:14 Ascorbic Acid (Vitamin C) 500 mg DAILY ORAL 09/15/20 09:00 10/15/20 08:59 09/19/20 08:19 Dexamethasone Sodium Phosphate (Decadron 10mg/ ml Inj) 6 mg DAILY@1400 IV 09/15/20 14:00 09/24/20 14:01 09/19/20 13:05 Dextrose (Dextrose 50%) 25 ml Q30M PRN IV Hypoglycemia 09/14/20 23:00 12/13/20 22:59 Dextrose (Dextrose 50%) 50 ml Q30M PRN IV Hypoglycemia 09/14/20 23:00 12/13/20 22:59 Diphenhydramine HCl (Benadryl) 25 mg EVERY 4 HOURS PRN IVP Itching 09/14/20 22:15 10/14/20 22:14 Docusate Sodium (Colace) 250 mg DAILY ORAL 09/15/20 09:00 10/15/20 08:59 09/19/20 08:19 Enoxaparin Sodium (Lovenox) 60 mg DAILY SUBQ 09/15/20 09:00 12/14/20 08:59 09/19/20 08:20 Guaifenesin (Mucinex ER) 600 mg TWICE A DAY ORAL 09/15/20 09:00 12/14/20 08:59 09/19/20 08:19 Guaifenesin/ Codeine Phosphate (Robitussin with codeine) 5 ml EVERY 4 HOURS PRN ORAL For Cough 09/14/20 22:15 10/14/20 22:14 09/19/20 06:09 Guaifenesin/ Dextromethorphan (Robitussin DM Syrup) 5 ml Q4H PRN ORAL For Cough 09/14/20 22:15 12/13/20 22:14 Insulin Aspart (NovoLOG) BEFORE MEALS AND HS SUBQ 09/15/20 06:30 12/14/20 06:29 09/17/20 21:29 Ipratropium [place] (Atrovent Inh) 1 puffs EVERY 4 HOURS PRN INH Shortness of Breath 09/14/20 22:15 10/14/20 22:14 09/15/20 17:53 Multivitamins (Multivitamins) 1 tab DAILY ORAL 09/15/20 09:00 10/15/20 08:59 09/19/20 08:19 Ondansetron HCl (Zofran) 4 mg EVERY 4 HOURS PRN IVP Nausea & Vomiting 09/14/20 22:15 10/14/20 22:14 Vitamin D (Vitamin D) 400 unit DAILY ORAL 09/15/20 09:00 10/15/20 08:59 09/19/20 08:19 Zinc Sulfate (Zinc Sulfate) 220 mg DAILY ORAL 09/15/20 09:00 12/14/20 08:59 09/19/20 08:19 Assessment/Plan Problems: (1) Hypoxia (2) Coronavirus infection (3) Pleural effusion Assessment/Plan Optimize pulmonary hygiene/mobilize as tolerated PRN O2 PRN HFA's Continue DEX S/P IVERMECTIN REM not approved Monitor for recurrence of effusion Elevated CEA with loculated effusions concerning for an underlying malignancy, patient will need an extensive outpatient w/u, including PET/CT, onc and thoracic evaluation and likely VATS pleurodesis and pleural biopsy. I explained this in depth to the the patient who verbalized understanding. will provide patient with a list of [facility] resources Monitor volumes and renal function DVT Px: LMWH FC Dispo planning home in Nish Kessler MD Sep 19, 2020 16:48
--- NOTE | 2020-09-19 19:30 | NUR ---
NURSE HAND-OFF REPORT: Important Events on Shift:[No remarkable events] Patient Status: [Full code] Diet: [Regular] Pending Orders: [] Pending Results/Labs:[] Pending MD notification:[] Latest Vital Signs: Temperature 97.4 , Pulse 66 , B/P 107 /68 , Respiratory Rate 20 , O2 SAT 95 , , O2 Flow Rate 2.0 . Vital Sign Comment: [] EKG Rhythm: Sinus Rhythm Rhythm change?: N MD Notified?: - MD Response: Latest Harrell Fall Score: 30 Fall Risk: Medium Risk Safety Measures: Call light Within Reach, Bed Alarm , Side Rails Side Rails x2, Bed position Low and Locked. Fall Precautions: Patient Fall Education Report given to [Report Given to Zora VILLEDA].
--- NOTE | 2020-09-19 19:31 | NUR ---
NURSE NOTES: Received report from RONAL Goins, AOX4, Citizen Of [place] speaking mostly but understands some Mosotho; denies any pain nor discomfort; pt mostly on room air but per AM shift pt on 2L/min via NC mostly @ night d/t SOB, no c/o SOB at this time; with peripheral IV site on R forearm 20 gauge s/l, intact and patent; OB stool to be collected, continent and encouraged to provide stool sample; will monitor for BM; accucheck ACHS, will monitor blood sugar levels; call light within reach, bed locked and in low position, side rails x 2; will continue to monitor.
[2020-09-19 20:00] VITALS: BP 128/63
[2020-09-20] VITALS (7 sets, daily range): BP systolic 113–123; BP diastolic 60–73
[2020-09-20] MEDS: NovoLOG Insulin Flexpen SUBQ SCH ×4 (06:29→21:00)
--- NOTE | 2020-09-20 07:25 | NUR ---
NURSE NOTES: Receive a report from RONAL Blakely. Pt is awake, alert, oriented x4. Tajik speaking. Denies pain/discomfort noted. No acute cardio-resp distress noted. On O2 RA and Spo2 96%. good appetite. ambulates with minimal assistance. intermittent non-productive cough noted. PIV is right FA H/L. kept bed in the lowest position. siderails are upx2. Call light within reach. bed brakes engaged and bed is on sukumar mode @ all times. Will continue to monitor.
--- NOTE | 2020-09-20 07:30 | NUR ---
NURSE HAND-OFF REPORT: Important Events on Shift: Stool OB collected and sent to lab Patient Status: AOX4, stable Diet: Regular, thin liquids Pending Orders: N Pending Results/Labs: am LABS, STOOL ob Pending MD notification: N Latest Vital Signs: Temperature 97.7 , Pulse 80 , B/P 123 /67 , Respiratory Rate 20 , O2 SAT 96 , , O2 Flow Rate 2.0 . Vital Sign Comment: stable EKG Rhythm: Sinus Rhythm Rhythm change?: N MD Notified?: - MD Response: Latest Harrell Fall Score: 20 Fall Risk: Low Risk Safety Measures: Call light Within Reach, Bed Alarm , Side Rails Side Rails x2, Bed position Low and Locked. Fall Precautions: Yellow Socks Yellow Gown Patient Fall Education Report given to SINGH Burt.
--- NOTE | 2020-09-20 07:43 | Surgery Progress Note ---
Surgery Progress Note Subjective Additional Comments no acute events comfortable stable fluid path noted Objective Last 24 Hour Vital Signs Date Time Temp Pulse Resp B/P (MAP) Pulse Ox O2 Delivery O2 Flow Rate FiO2 09/20/20 06:00 97.5 78 20 114/65 (81) 95 09/20/20 04:00 72 09/20/20 04:00 97.5 76 20 114/62 (79) 95 09/20/20 00:00 97.9 77 20 117/60 (79) 95 09/20/20 00:00 77 09/19/20 21:00 Nasal Cannula 2.0 09/19/20 20:46 80 20 95 Nasal Cannula 2.0 28 09/19/20 20:45 95 Nasal Cannula 2.0 28 09/19/20 20:00 83 09/19/20 20:00 97.5 64 20 128/63 (84) 95 09/19/20 16:00 97.4 73 20 107/68 (81) 95 09/19/20 16:00 66 09/19/20 12:00 97.4 73 20 117/76 (90) 94 09/19/20 12:00 65 09/19/20 09:00 Room Air 09/19/20 08:00 85 09/19/20 08:00 97.5 76 20 109/69 (82) 94 I&O Intake and Output 09/19/20 09/20/20 19:00 07:00 Intake Total 740 ml 360 ml Output Total 1000 ml 425 ml Balance -260 ml -65 ml Intake Oral 740 ml 360 ml Output Urine Total 1000 ml 425 ml # Bowel Movements 1 Dressing: dry Wound: clean Cardiovascular: RSR Respiratory: clear, decreased breath sounds Abdomen: soft, non-tender, present bowel sounds, non-distended Extremities: no edema, no tenderness, no cyanosis Laboratory Tests Test 09/19/20 21:09 09/19/20 21:58 09/20/20 06:22 POC Whole Blood Glucose 143 MG/DL (74-106) H 104 MG/DL (74-106) Stool Occult Blood Pending Plan Problems: (1) Pleural effusion Assessment & Plan: 59 male Covid positive respiratory shortness of breath identified to have massive pleural effusion left. Potentially loculated collection is identified on CT. We will begin with thoracentesis interventional radiology May require a chest tube as needed If significantly loculated or empyema or worsening will discuss with thoracic surgery Continue IV antibiotics per infectious disease cytology negative likely related to covid d/c planning Thank you will follow the recommendations pulmonary arteries are adequately opacified. No definite intraluminal filling defects or other findings to suggest acute pulmonary embolus are evident. No evidence of pulmonary arterial dilatation or right ventricular dilatation. No evidence of thoracic aortic aneurysm or dissection. Normal caliber and branching anatomy of the great neck vessels. There is a massive left pleural effusion. This demonstrates marked thickening and some enhancement of the of the pleural surface. There is a significant nondependent component anteriorly. This results in compressive atelectasis of significant portions of the left lower lobe and some of the left upper lobe. Multiple focal groundglass opacities are seen scattered throughout the right lung in a mostly peripheral distribution. No right pleural effusion is demonstrated. No right lung mass demonstrated. Prominent but not frankly enlarged right hilar nodes are demonstrated. Numerous prominent mediastinal nodes are demonstrated, particularly numerous in the prevascular space. The esophagus is unremarkable. The thyroid is unremarkable. Included upper abdominal anatomy demonstrates hepatic surface nodularity. Impression: No definite evidence of acute pulmonary embolus or other acute thoracic vascular pathology. Multifocal groundglass opacities in the right lung. This is concerning for multifocal pneumonia, likely viral Massive left pleural effusion. Presumably chronic and likely loculated, given the presence of considerable pleural thickening Considerable left lung parenchymal atelectasis related to the above Numerous and prominent mediastinal lymph nodes may indicate lymphadenopathy. Appearance nonspecific as regards etiology Evidence of hepatic cirrhosis Ultrasound used to localize optimal puncture site. Sterile prepping and draping left chest. Local anesthesia with 1% lidocaine. Under real-time ultrasound guidance, puncture pleural space using thoracentesis needle. Stylet removed. Catheter placed to vacuum bottle suction. Total 150 milliliters of cloudy yellow fluid aspirated. Specimen sent to the lab. Patient tolerated procedure well, without immediate complication. Findings: Initial sonography demonstrates heavily loculated septated fluid. Fol lowup sonography demonstrates persistent pleural fluid Impression: Successful ultrasound-guided thoracentesis, yielding 150 milliliters of fluid. Note that fluid was incompletely evacuated, presumably due to collection being heavily loculated Lungs/pleura: Slightly increased opacities bilaterally. Stable small left pleural effusion. Heart/mediastinum: Stable mild enlargement of the cardiac silhouette. Soft tissues: Unremarkable. Bones: No acute fracture. Upper abdomen: Normal. IMPRESSION: Slightly increased opacities bilaterally. Stable small left pleural effusion. (2) Hypoxia (3) Coronavirus infection Assessment & Plan: ++ as per ID and pulm Roman Conway Sep 20, 2020 07:43
[2020-09-20] MEDS: guaiFENesin ER 600mg tab ORAL SCH ×2 (08:32→17:27)
[2020-09-20] MEDS: Docusate 250mg cap ORAL SCH (08:32)
[2020-09-20] MEDS: Vitamin D 400 units TAB ORAL SCH (08:32)
[2020-09-20] MEDS: Ascorbic Acid 500mg tab ORAL SCH (08:32)
[2020-09-20] MEDS: Zinc Sulfate 220mg ORAL SCH (08:32)
[2020-09-20] MEDS ORDERED: Enoxaparin 80mg Inj SUBQ SCH (09:30)
[2020-09-20] MEDS: dexAMETHasone 10mg/ml Inj IV SCH (13:38)
--- NOTE | 2020-09-20 13:46 | NUR ---
CASE MANAGEMENT:REVIEW 09/20/20 SI: COVID PNA. ROSAURA INFILTRATES HEAVILY LOCULATED PLEURAL EFFUSION...S/P THORACENTESIS 150ML 97.9 69 18 115/65 95% ON 2L/NC IS: IV DECADRON QD MUCINEX PO BID LOVENOX SQ QD VIT D PO QD ZINC PO QD VIT C PO QD : TELEMETRY STATUS DCP: FROM HOME PLAN: ELEVATED CEA PLUS LOCULATED PLEURAL EFFUSION YIELDS CONCERN FOR UNDERLYING MALIGNANCY PLAN:
--- NOTE | 2020-09-20 15:55 | NUR ---
NURSE NOTES: Patient received from tele from SINGH Burt. Pt received awake, alert and oriented x 4, no SOB, bed in low position with breaks engaged and alarm on, on room air, IV line in place, on room air, on contact and droplet precautions for COVID 19, skin is intact, belongings checked with transferring nurse, pt wants to keep $22 mensah with him, denies any pain at this time, will continue to monitor and proceed with plan of care, call light within reach.
--- NOTE | 2020-09-20 16:00 | NUR ---
NURSE NOTES: TRANSFERRED PATIENT TO [facility] WITH A STABLE CONDITION. ON RA. VERBALLY RESPONSIVE. ABLE TO UTILIZE URINAL WHEN VOIEDS. PERSONAL BELONGINGS REVIEWED AND NOTED. PIV PATENT AND INTACT. SKIN IS INTACT. OBSERVED FOR CONTACT AND DROPLET PRECAUTION FOR + COVID. BED IS IN LOWEST POSITION. SIDERAILS ARE UPX2. CALL LIGHT IS WITHIN REACH. BED BRAKES ENGAGED AND LOCKED @ ALL TIMES. WILL CONT TO MONITOR.
--- NOTE | 2020-09-20 18:03 | Pulmonology Progress Note ---
Subjective Constitutional: Reports: fever Allergies: Coded Allergies: No Known Allergies (Unverified , 09/14/20) Subjective on2 L O2 via NC reports occasional dry cough, no SOB, no CP s/p thoracentesis 09/16 -150 ml, cytology NGT Objective Last 24 Hour Vital Signs Date Time Temp Pulse Resp B/P (MAP) Pulse Ox O2 Delivery O2 Flow Rate FiO2 09/20/20 16:00 97.5 66 20 121/63 (82) 96 09/20/20 12:00 97.9 69 18 115/65 (82) 95 09/20/20 12:00 75 09/20/20 09:00 Nasal Cannula 2.0 09/20/20 08:00 66 09/20/20 07:56 97.7 80 20 123/67 (85) 96 09/20/20 06:00 97.5 78 20 114/65 (81) 95 09/20/20 04:00 72 09/20/20 04:00 97.5 76 20 114/62 (79) 95 09/20/20 00:00 97.9 77 20 117/60 (79) 95 09/20/20 00:00 77 09/19/20 21:00 Nasal Cannula 2.0 09/19/20 20:46 80 20 95 Nasal Cannula 2.0 28 09/19/20 20:45 95 Nasal Cannula 2.0 28 09/19/20 20:00 83 09/19/20 20:00 97.5 64 20 128/63 (84) 95 Intake and Output 09/19/20 09/20/20 19:00 07:00 Intake Total 740 ml 360 ml Output Total 1000 ml 425 ml Balance -260 ml -65 ml Intake Oral 740 ml 360 ml Output Urine Total 1000 ml 425 ml # Bowel Movements 1 General Appearance: no acute distress HEENT: normocephalic, atraumatic, anicteric, mucous membranes moist, PERRL, other - O2 3 L-4 L via NC Respiratory: decreased breath sounds Cardiovascular: normal rate, regular rhythm Abdomen: soft, non tender Extremities: no edema, pedal pulses normal Skin: other - BLE reddishn/brown hyperpigmentation Neurologic: pigeon fancier II-XII grossly normal, no motor/sensory deficits, alert, oriented x 3, responsive Musculoskeletal: normal muscle bulk Laboratory Tests 09/19/20 21:09: POC Whole Blood Glucose 143H 09/19/20 21:58: Stool Occult Blood Positive 09/20/20 06:22: POC Whole Blood Glucose 104 09/20/20 11:44: POC Whole Blood Glucose 100 09/20/20 16:15: POC Whole Blood Glucose 107H Current Medications Medications (Trade) Dose Ordered Sig/Polo Route PRN Reason Start Time Stop Time Status Last Admin Dose Admin Acetaminophen (Tylenol) 650 mg Q4H PRN ORAL Mild Pain (Pain Scale 1-3) 09/14/20 22:15 10/14/20 22:14 09/15/20 16:32 Acetaminophen (Tylenol) 650 mg Q4H PRN ORAL Temp >100.5 09/14/20 22:15 10/14/20 22:14 Albuterol Sulfate (Proventil MDI) 2 puff Q4H PRN INH Shortness of Breath 09/14/20 22:15 12/13/20 22:14 Ascorbic Acid (Vitamin C) 500 mg DAILY ORAL 09/15/20 09:00 10/15/20 08:59 09/20/20 08:32 Dexamethasone Sodium Phosphate (Decadron 10mg/ ml Inj) 6 mg DAILY@1400 IV 09/15/20 14:00 09/24/20 14:01 09/20/20 13:38 Dextrose (Dextrose 50%) 25 ml Q30M PRN IV Hypoglycemia 09/14/20 23:00 12/13/20 22:59 Dextrose (Dextrose 50%) 50 ml Q30M PRN IV Hypoglycemia 09/14/20 23:00 12/13/20 22:59 Diphenhydramine HCl (Benadryl) 25 mg EVERY 4 HOURS PRN IVP Itching 09/14/20 22:15 10/14/20 22:14 Docusate Sodium (Colace) 250 mg DAILY ORAL 09/15/20 09:00 10/15/20 08:59 09/20/20 08:32 Enoxaparin Sodium (Lovenox) 60 mg DAILY SUBQ 09/21/20 09:00 12/14/20 08:59 Guaifenesin (Mucinex ER) 600 mg TWICE A DAY ORAL 09/15/20 09:00 12/14/20 08:59 09/20/20 17:27 Guaifenesin/ Codeine Phosphate (Robitussin with codeine) 5 ml EVERY 4 HOURS PRN ORAL For Cough 09/14/20 22:15 10/14/20 22:14 09/19/20 06:09 Guaifenesin/ Dextromethorphan (Robitussin DM Syrup) 5 ml Q4H PRN ORAL For Cough 09/14/20 22:15 12/13/20 22:14 Insulin Aspart (NovoLOG) BEFORE MEALS AND HS SUBQ 09/15/20 06:30 12/14/20 06:29 09/19/20 21:15 Ipratropium [place] (Atrovent Inh) 1 puffs EVERY 4 HOURS PRN INH Shortness of Breath 09/14/20 22:15 10/14/20 22:14 09/15/20 17:53 Multivitamins (Multivitamins) 1 tab DAILY ORAL 09/15/20 09:00 10/15/20 08:59 09/20/20 08:32 Ondansetron HCl (Zofran) 4 mg EVERY 4 HOURS PRN IVP Nausea & Vomiting 09/14/20 22:15 10/14/20 22:14 Vitamin D (Vitamin D) 400 unit DAILY ORAL 09/15/20 09:00 10/15/20 08:59 09/20/20 08:32 Zinc Sulfate (Zinc Sulfate) 220 mg DAILY ORAL 09/15/20 09:00 12/14/20 08:59 09/20/20 08:32 Assessment/Plan Assessment/Plan ASSESSMENT COVID PNA Hypoxia Large left effusion, possibly loculated, with associated compressive atelectasis s/p thoracentesis 09/16 -> 150 ml Lymphadenopathy r/o possible malignancy Anemia Diarrhea Elevated AST, likely due to liver cirrhosis Hypoalbuminemia DM hx of ETOH PLAN OF CARE [facility] floor Date of sx onset: 2 wks prior to presentation to ED Positive test: 09/14 rapid COVID 19 O2 2 L NC HFA Dex Day# 9( 09/14 -) consider REM -> per ID recs s/p Ivermectin encourage prone position as tolerated DVT PPX: Lovenox D dimer 5.24 Trend CRP 8.3 - 2.6 CTA-> no PE, but large left ( likely loculated) pl effusion s/p tap 09/16 -> 150 ml ( effusion largely loculated) pleural cx NGTD, fluid analysis noted cytology NGT CXR post tap-no PTX fup CXR Slightly increased opacities bilaterally. Stable small left pleural effusion. no abx as per ID recs a/tussive prn supportive care : vitamin D, A, , zinc anemia w/up, CEA-5.6 stool OB ESR high monitor HH with goal to keep Hgb > 7 trend LFT-AST trending down BS management with SSI GI prophylaxis check pulse ox on RA with ambulation Monitor volumes and renal function Fup with consultants recs FC dc plan for am fup at [facility] to establish primary care provider and fup with thoracic surgery case discussed and evaluated by supervising physician Maya Real NP Sep 20, 2020 18:03
--- NOTE | 2020-09-20 19:30 | NUR ---
HAND-OFF: Report given to RONAL Kruger.
--- NOTE | 2020-09-20 19:31 | NUR ---
NURSE NOTES: Received patient in no apparent distress. A&OX4. IV site patent and intact. Bed in lowest position. Call light within reach. Will continue to monitor.
[2020-09-21] VITALS: BP 127/79
[2020-09-21] MEDS: guaiFENesin w/Codeine 5ml Liq ud ORAL PRN (02:02)
[2020-09-21 04:00] VITALS: BP 132/84
[2020-09-21] MEDS: NovoLOG Insulin Flexpen SUBQ SCH ×4 (06:30→21:20)
[2020-09-21 07:30] LABS: BASOPHILS % (AUTO) 0.4 % (0.0-2.0); EOSINOPHILS % (AUTO) 0.1 % (0.0-3.0); HEMATOCRIT 39.2 % (42.0-52.0); HEMOGLOBIN 12.8 G/DL (14.2-18.0); LYMPHOCYTES % (AUTO) 18.3 % (20.0-45.0); MEAN CORPUSCULAR VOLUME 94 FL (80-99); MONOCYTES % (AUTO) 11.6 % (1.0-10.0); NEUTROPHILS % (AUTO) 69.6 % (45.0-75.0); PLATELET COUNT 323 K/UL (150-450); RED BLOOD COUNT 4.19 M/UL (4.70-6.10); RED CELL DISTRIBUTION WIDTH 16.1 % (11.6-14.8); WHITE BLOOD COUNT 10.4 K/UL (4.8-10.8)
--- NOTE | 2020-09-21 07:38 | NUR ---
NURSE HAND-OFF: Important Events on Shift: Patient Status: Diet: regular Pending Orders: Pending Results/Labs: Pending MD notification: Latest Vital Signs: Temperature 98.1 , Pulse 78 , B/P 132 /84 , Respiratory Rate 20 , O2 SAT 93 , , O2 Flow Rate 2.0 . Vital Sign Comment: Latest Harrell Fall Score: 20 Fall Risk: Low Risk Safety Measures: Call light Within Reach, Bed Alarm Zone 1, Side Rails Side Rails x2, Bed position Low and Locked. Fall Precautions: Yellow Socks Yellow Gown Patient Fall Education Report given to Teresa VILLEDA .
--- NOTE | 2020-09-21 07:39 | NUR ---
NURSE NOTES: Patient alert x4; on room air, sats well; no sing of chest pain; IV RAC flushes well; Urinal within reach; side rials up x2, breaks engaged, bed at lowest position, call light within reach; will keep monitoring.
[2020-09-21 07:54] LABS: ALANINE AMINOTRANSFERASE 41 U/L (12-78); ALBUMIN 2.4 G/DL (3.4-5.0); ALBUMIN/GLOBULIN RATIO 0.4 (1.0-2.7); ALKALINE PHOSPHATASE 162 U/L (46-116); ANION GAP 6 mmol/L (5-15); ASPARTATE AMINO TRANSFERASE 73 U/L (15-37); BILIRUBIN,TOTAL 0.8 MG/DL (0.2-1.0); BLOOD UREA NITROGEN 21 mg/dL (7-18); CARBON DIOXIDE 27 MMOL/L (21-32); CHLORIDE 101 MMOL/L (98-107); CREATININE 0.7 MG/DL (0.55-1.30); POTASSIUM 3.8 MMOL/L (3.5-5.1); SODIUM 134 MMOL/L (136-145)
[2020-09-21 08:00] VITALS: BP 117/71
[2020-09-21] MEDS: Docusate 250mg cap ORAL SCH (08:31)
[2020-09-21] MEDS: Zinc Sulfate 220mg ORAL SCH (08:31)
[2020-09-21] MEDS: Ascorbic Acid 500mg tab ORAL SCH (08:31)
[2020-09-21] MEDS: guaiFENesin ER 600mg tab ORAL SCH ×2 (08:31→17:30)
[2020-09-21] MEDS: Vitamin D 400 units TAB ORAL SCH (08:31)
[2020-09-21] MEDS: Enoxaparin 40mg Inj SUBQ SCH (08:32)
--- NOTE | 2020-09-21 08:44 | NUR ---
PROP MAKER NOTE SW met w/ pt to discuss POA document. Pt presents as A&O 4x. Pt reports he does not have POA/AD document. Pt does not have any children. Pt states he has two brothers living in [place]. Pt wants his brother, Randal Murphy [phone] to make decision if he is unable to make one. SW explained that AD document cannot be notarized/witnessed at the hospital d/t covid-19 and no visitor policy.
--- NOTE | 2020-09-21 11:33 | Pulmonology Progress Note ---
Subjective Constitutional: Reports: fever Allergies: Coded Allergies: No Known Allergies (Unverified , 09/14/20) Subjective AFVSS on RA Feels better Less SOB less cough no FC no CP GI eval underway Objective Last 24 Hour Vital Signs Date Time Temp Pulse Resp B/P (MAP) Pulse Ox O2 Delivery O2 Flow Rate FiO2 09/21/20 10:06 Room Air 09/21/20 08:00 97.3 80 20 117/71 (86) 92 09/21/20 04:00 98.1 78 20 132/84 (100) 93 09/21/20 00:00 98.0 86 20 127/79 (95) 94 09/20/20 21:00 Room Air 09/20/20 20:00 98.4 94 20 113/73 (86) 93 09/20/20 16:00 97.5 66 20 121/63 (82) 96 09/20/20 12:00 97.9 69 18 115/65 (82) 95 09/20/20 12:00 75 Intake and Output 09/20/20 09/21/20 19:00 07:00 Intake Total 240 ml Output Total 550 ml Balance -310 ml Intake Oral 240 ml Output Urine Total 550 ml # Voids 3 # Bowel Movements 1 General Appearance: no acute distress HEENT: normocephalic, atraumatic, anicteric, mucous membranes moist, PERRL, other - O2 3 L-4 L via NC Respiratory: lungs clear Cardiovascular: normal rate, regular rhythm Abdomen: soft, non tender Extremities: no edema, pedal pulses normal Skin: other - BLE reddishn/brown hyperpigmentation Neurologic: clock mechanic II-XII grossly normal, no motor/sensory deficits, alert, oriented x 3, responsive Musculoskeletal: normal muscle bulk Laboratory Tests 09/20/20 11:44: POC Whole Blood Glucose 100 09/20/20 16:15: POC Whole Blood Glucose 107H 09/20/20 21:25: POC Whole Blood Glucose 138H 09/21/20 06:12: White Blood Count 10.4, Red Blood Count 4.19L, Hemoglobin 12.8L, Hematocrit 39.2L, Mean Corpuscular Volume 94, Mean Corpuscular Hemoglobin 30.6, Mean Corpuscular Hemoglobin Concent 32.7, Red Cell Distribution Width 16.1H, Platelet Count 323, Mean Platelet Volume 7.0, Neutrophils (%) (Auto) 69.6, Lymphocytes (%) (Auto) 18.3L, Monocytes (%) (Auto) 11.6H, Eosinophils (%) (Auto) 0.1, Basophils (%) (Auto) 0.4, Sodium Level 134L, Potassium Level 3.8, Chloride Level 101, Carbon Dioxide Level 27, Anion Gap 6, Blood Urea Nitrogen 21H, Creatinine 0.7, Estimat Glomerular Filtration Rate > 60, Glucose Level 87, Calcium Level 9.0, Total Bilirubin 0.8, Aspartate Amino Transf (AST/SGOT) 73H, Alanine Aminotransferase (ALT/SGPT) 41, Alkaline Phosphatase 162H, Total Protein 9.0H, Albumin 2.4L, Globulin 6.6, Albumin/Globulin Ratio 0.4L 09/21/20 06:20: POC Whole Blood Glucose 86 Current Medications Medications (Trade) Dose Ordered Sig/Ploo Route PRN Reason Start Time Stop Time Status Last Admin Dose Admin Acetaminophen (Tylenol) 650 mg Q4H PRN ORAL Mild Pain (Pain Scale 1-3) 09/14/20 22:15 10/14/20 22:14 09/15/20 16:32 Acetaminophen (Tylenol) 650 mg Q4H PRN ORAL Temp >100.5 09/14/20 22:15 10/14/20 22:14 Albuterol Sulfate (Proventil MDI) 2 puff Q4H PRN INH Shortness of Breath 09/14/20 22:15 12/13/20 22:14 Ascorbic Acid (Vitamin C) 500 mg DAILY ORAL 09/15/20 09:00 10/15/20 08:59 09/21/20 08:31 Dexamethasone Sodium Phosphate (Decadron 10mg/ ml Inj) 6 mg DAILY@1400 IV 09/15/20 14:00 09/24/20 14:01 09/20/20 13:38 Dextrose (Dextrose 50%) 25 ml Q30M PRN IV Hypoglycemia 09/14/20 23:00 12/13/20 22:59 Dextrose (Dextrose 50%) 50 ml Q30M PRN IV Hypoglycemia 09/14/20 23:00 12/13/20 22:59 Diphenhydramine HCl (Benadryl) 25 mg EVERY 4 HOURS PRN IVP Itching 09/14/20 22:15 10/14/20 22:14 09/20/20 22:28 Docusate Sodium (Colace) 250 mg DAILY ORAL 09/15/20 09:00 10/15/20 08:59 09/21/20 08:31 Enoxaparin Sodium (Lovenox) 60 mg DAILY SUBQ 09/21/20 09:00 12/14/20 08:59 09/21/20 08:32 Guaifenesin (Mucinex ER) 600 mg TWICE A DAY ORAL 09/15/20 09:00 12/14/20 08:59 09/21/20 08:31 Guaifenesin/ Codeine Phosphate (Robitussin with codeine) 5 ml EVERY 4 HOURS PRN ORAL For Cough 09/14/20 22:15 10/14/20 22:14 09/21/20 02:02 Guaifenesin/ Dextromethorphan (Robitussin DM Syrup) 5 ml Q4H PRN ORAL For Cough 09/14/20 22:15 12/13/20 22:14 Insulin Aspart (NovoLOG) BEFORE MEALS AND HS SUBQ 09/15/20 06:30 12/14/20 06:29 09/19/20 21:15 Ipratropium [place] (Atrovent Inh) 1 puffs EVERY 4 HOURS PRN INH Shortness of Breath 09/14/20 22:15 10/14/20 22:14 09/15/20 17:53 Multivitamins (Multivitamins) 1 tab DAILY ORAL 09/15/20 09:00 10/15/20 08:59 09/21/20 08:31 Ondansetron HCl (Zofran) 4 mg EVERY 4 HOURS PRN IVP Nausea & Vomiting 09/14/20 22:15 10/14/20 22:14 Pantoprazole (Protonix) 40 mg DAILY ORAL 09/22/20 09:00 10/22/20 08:59 Vitamin D (Vitamin D) 400 unit DAILY ORAL 09/15/20 09:00 10/15/20 08:59 09/21/20 08:31 Zinc Sulfate (Zinc Sulfate) 220 mg DAILY ORAL 09/15/20 09:00 12/14/20 08:59 09/21/20 08:31 Assessment/Plan Problems: (1) Loculated pleural effusion (2) Occult blood positive stool (3) Hypoxia (4) Coronavirus infection Assessment/Plan Optimize pulmonary hygiene/mobilize as tolerated PRN O2 PRN HFA's Continue DEX D7 S/P IVERMECTIN REM not approved Monitor for recurrence of effusion F/U surgery recs GI CONSULT given FOBT + F/U CT CAP c/s contrast Elevated CEA with loculated effusions concerning for an underlying malignancy, patient will need an extensive outpatient w/u, including PET/CT, onc and thoracic evaluation and likely VATS pleurodesis and pleural biopsy. I explained this in depth to the the patient who verbalized understanding. SW will provide patient with a list of county resources Monitor volumes and renal function DVT Px: LMWH FC Dispo planning home once acute issues resolved Nish Alonso MD Sep 21, 2020 11:33
--- NOTE | 2020-09-21 11:39 | Infectious Diseases Prog Note ---
Assessment/Plan Assessment/Plan antibiotics : none A 1. covid 19 pneumonia on room air with O2 92 % saturation s/p ivermectin 2. diabetes mellitus 3. cirrhosis P 1. continue dexamethasone day 8 2. continue isolation Subjective ROS Limited/Unobtainable: Yes Allergies: Coded Allergies: No Known Allergies (Unverified , 09/14/20) Objective Last 24 Hour Vital Signs Date Time Temp Pulse Resp B/P (MAP) Pulse Ox O2 Delivery O2 Flow Rate FiO2 09/21/20 10:06 Room Air 09/21/20 08:00 97.3 80 20 117/71 (86) 92 09/21/20 04:00 98.1 78 20 132/84 (100) 93 09/21/20 00:00 98.0 86 20 127/79 (95) 94 09/20/20 21:00 Room Air 09/20/20 20:00 98.4 94 20 113/73 (86) 93 09/20/20 16:00 97.5 66 20 121/63 (82) 96 09/20/20 12:00 97.9 69 18 115/65 (82) 95 09/20/20 12:00 75 Height (Feet): 5 Height (Inches): 5.00 Weight (Pounds): 121 Laboratory Tests Test 09/20/20 11:44 09/20/20 16:15 09/20/20 21:25 09/21/20 06:12 POC Whole Blood Glucose 100 MG/DL (74-106) 107 MG/DL (74-106) H 138 MG/DL (74-106) H White Blood Count 10.4 K/UL (4.8-10.8) Red Blood Count 4.19 M/UL (4.70-6.10) L Hemoglobin 12.8 G/DL (14.2-18.0) L Hematocrit 39.2 % (42.0-52.0) L Mean Corpuscular Volume 94 FL (80-99) Mean Corpuscular Hemoglobin 30.6 PG (27.0-31.0) Mean Corpuscular Hemoglobin Concent 32.7 G/DL (32.0-36.0) Red Cell Distribution Width 16.1 % (11.6-14.8) H Platelet Count 323 K/UL (150-450) Mean Platelet Volume 7.0 FL (6.5-10.1) Neutrophils (%) (Auto) 69.6 % (45.0-75.0) Lymphocytes (%) (Auto) 18.3 % (20.0-45.0) L Monocytes (%) (Auto) 11.6 % (1.0-10.0) H Eosinophils (%) (Auto) 0.1 % (0.0-3.0) Basophils (%) (Auto) 0.4 % (0.0-2.0) Sodium Level 134 MMOL/L (136-145) L Potassium Level 3.8 MMOL/L (3.5-5.1) Chloride Level 101 MMOL/L (98-107) Carbon Dioxide Level 27 MMOL/L (21-32) Anion Gap 6 mmol/L (5-15) Blood Urea Nitrogen 21 mg/dL (7-18) H Creatinine 0.7 MG/DL (0.55-1.30) Estimat Glomerular Filtration Rate > 60 mL/min (>60) Glucose Level 87 MG/DL (74-106) Calcium Level 9.0 MG/DL (8.5-10.1) Total Bilirubin 0.8 MG/DL (0.2-1.0) Aspartate Amino Transf (AST/SGOT) 73 U/L (15-37) H Alanine Aminotransferase (ALT/SGPT) 41 U/L (12-78) Alkaline Phosphatase 162 U/L (46-116) H Total Protein 9.0 G/DL (6.4-8.2) H Albumin 2.4 G/DL (3.4-5.0) L Globulin 6.6 g/dL Albumin/Globulin Ratio 0.4 (1.0-2.7) L Test 09/21/20 06:20 POC Whole Blood Glucose 86 MG/DL (74-106) Current Medications Medications (Trade) Dose Ordered Sig/Polo Route PRN Reason Start Time Stop Time Status Last Admin Dose Admin Acetaminophen (Tylenol) 650 mg Q4H PRN ORAL Mild Pain (Pain Scale 1-3) 09/14/20 22:15 10/14/20 22:14 09/15/20 16:32 Acetaminophen (Tylenol) 650 mg Q4H PRN ORAL Temp >100.5 09/14/20 22:15 10/14/20 22:14 Albuterol Sulfate (Proventil MDI) 2 puff Q4H PRN INH Shortness of Breath 09/14/20 22:15 12/13/20 22:14 Ascorbic Acid (Vitamin C) 500 mg DAILY ORAL 09/15/20 09:00 10/15/20 08:59 09/21/20 08:31 Dexamethasone Sodium Phosphate (Decadron 10mg/ ml Inj) 6 mg DAILY@1400 IV 09/15/20 14:00 09/24/20 14:01 09/20/20 13:38 Dextrose (Dextrose 50%) 25 ml Q30M PRN IV Hypoglycemia 09/14/20 23:00 12/13/20 22:59 Dextrose (Dextrose 50%) 50 ml Q30M PRN IV Hypoglycemia 09/14/20 23:00 12/13/20 22:59 Diphenhydramine HCl (Benadryl) 25 mg EVERY 4 HOURS PRN IVP Itching 09/14/20 22:15 10/14/20 22:14 09/20/20 22:28 Docusate Sodium (Colace) 250 mg DAILY ORAL 09/15/20 09:00 10/15/20 08:59 09/21/20 08:31 Enoxaparin Sodium (Lovenox) 60 mg DAILY SUBQ 09/21/20 09:00 12/14/20 08:59 09/21/20 08:32 Guaifenesin (Mucinex ER) 600 mg TWICE A DAY ORAL 09/15/20 09:00 12/14/20 08:59 09/21/20 08:31 Guaifenesin/ Codeine Phosphate (Robitussin with codeine) 5 ml EVERY 4 HOURS PRN ORAL For Cough 09/14/20 22:15 10/14/20 22:14 09/21/20 02:02 Guaifenesin/ Dextromethorphan (Robitussin DM Syrup) 5 ml Q4H PRN ORAL For Cough 09/14/20 22:15 12/13/20 22:14 Insulin Aspart (NovoLOG) BEFORE MEALS AND HS SUBQ 09/15/20 06:30 12/14/20 06:29 09/19/20 21:15 Ipratropium [place] (Atrovent Inh) 1 puffs EVERY 4 HOURS PRN INH Shortness of Breath 09/14/20 22:15 10/14/20 22:14 09/15/20 17:53 Multivitamins (Multivitamins) 1 tab DAILY ORAL 09/15/20 09:00 10/15/20 08:59 09/21/20 08:31 Ondansetron HCl (Zofran) 4 mg EVERY 4 HOURS PRN IVP Nausea & Vomiting 09/14/20 22:15 10/14/20 22:14 Pantoprazole (Protonix) 40 mg DAILY ORAL 09/22/20 09:00 10/22/20 08:59 Vitamin D (Vitamin D) 400 unit DAILY ORAL 09/15/20 09:00 10/15/20 08:59 09/21/20 08:31 Zinc Sulfate (Zinc Sulfate) 220 mg DAILY ORAL 09/15/20 09:00 12/14/20 08:59 09/21/20 08:31 Gena Caceres MD Sep 21, 2020 11:39
--- NOTE | 2020-09-21 11:49 | General Progress Note ---
Subjective ROS Limited/Unobtainable: Yes Allergies: Coded Allergies: No Known Allergies (Unverified , 09/14/20) Objective Last 24 Hour Vital Signs Date Time Temp Pulse Resp B/P (MAP) Pulse Ox O2 Delivery O2 Flow Rate FiO2 09/21/20 10:06 Room Air 09/21/20 08:00 97.3 80 20 117/71 (86) 92 09/21/20 04:00 98.1 78 20 132/84 (100) 93 09/21/20 00:00 98.0 86 20 127/79 (95) 94 09/20/20 21:00 Room Air 09/20/20 20:00 98.4 94 20 113/73 (86) 93 09/20/20 16:00 97.5 66 20 121/63 (82) 96 09/20/20 12:00 97.9 69 18 115/65 (82) 95 09/20/20 12:00 75 Intake and Output 09/20/20 09/21/20 19:00 07:00 Intake Total 240 ml Output Total 550 ml Balance -310 ml Intake Oral 240 ml Output Urine Total 550 ml # Voids 3 # Bowel Movements 1 Laboratory Tests 09/20/20 16:15: POC Whole Blood Glucose 107H 09/20/20 21:25: POC Whole Blood Glucose 138H 09/21/20 06:12: White Blood Count 10.4, Red Blood Count 4.19L, Hemoglobin 12.8L, Hematocrit 39.2L, Mean Corpuscular Volume 94, Mean Corpuscular Hemoglobin 30.6, Mean Corpuscular Hemoglobin Concent 32.7, Red Cell Distribution Width 16.1H, Platelet Count 323, Mean Platelet Volume 7.0, Neutrophils (%) (Auto) 69.6, Lymphocytes (%) (Auto) 18.3L, Monocytes (%) (Auto) 11.6H, Eosinophils (%) (Auto) 0.1, Basophils (%) (Auto) 0.4, Sodium Level 134L, Potassium Level 3.8, Chloride Level 101, Carbon Dioxide Level 27, Anion Gap 6, Blood Urea Nitrogen 21H, Creatinine 0.7, Estimat Glomerular Filtration Rate > 60, Glucose Level 87, Calcium Level 9.0, Total Bilirubin 0.8, Aspartate Amino Transf (AST/SGOT) 73H, Alanine Aminotransferase (ALT/SGPT) 41, Alkaline Phosphatase 162H, Total Protein 9.0H, Albumin 2.4L, Globulin 6.6, Albumin/Globulin Ratio 0.4L 09/21/20 06:20: POC Whole Blood Glucose 86 Height (Feet): 5 Height (Inches): 5.00 Weight (Pounds): 121 General Appearance: no apparent distress EENT: normal ENT inspection Neck: supple Cardiovascular: normal rate Respiratory/Chest: decreased breath sounds Abdomen: hypoactive bowel sounds Extremities: non-tender Assessment/Plan Problem List: (1) Loculated pleural effusion ICD Codes: J90 - Pleural effusion, not elsewhere classified SNOMED: 224590545 (2) Occult blood positive stool ICD Codes: R19.5 - Other fecal abnormalities SNOMED: 43274780 (3) Coronavirus infection ICD Codes: B34.2 - Coronavirus infection, unspecified SNOMED: 318743858 (4) Hypoxia ICD Codes: R09.02 - Hypoxemia SNOMED: 265379016 (5) Pleural effusion ICD Codes: J90 - Pleural effusion, not elsewhere classified SNOMED: 95830409 Assessment/Plan: given stable H&H, and given active Covid will hold GI procedures at this time unless urgent repeat CBC and stool ob add pii will Kris Yanes MD Sep 21, 2020 11:49
[2020-09-21 12:00] VITALS: BP 108/58
--- NOTE | 2020-09-21 12:09 | NUR ---
CASE MANAGEMENT:REVIEW SI;COVID PNEUMONIA. LOCULATED PLEURAL EFFUSION. HYPOXIA. STOOL OB POSITIVE. 98.4 94 20 132/84 92% ON RA NA- 164 BUN+ 21 AST+ 73 ALP+ 162 ALB- 2.4 IS;LOVENOX SQ QD DECADRON IV QD MUCINEX ER PO BID VITAMIN D PO QD VITAMIN C PO QD ZINC SULFATE PO QD ROBITUSSIN W/CODEINE PO Q4 PRN MED SURG STATUS DCP;FROM HOME
--- NOTE | 2020-09-21 12:54 | Surgery Progress Note ---
Surgery Progress Note Subjective Symptoms: improved, pain absent, tolerating diet, voiding well, passing flatus, BM Objective Last 24 Hour Vital Signs Date Time Temp Pulse Resp B/P (MAP) Pulse Ox O2 Delivery O2 Flow Rate FiO2 09/21/20 12:00 97.2 87 20 108/58 (75) 91 09/21/20 10:06 Room Air 09/21/20 08:00 97.3 80 20 117/71 (86) 92 09/21/20 04:00 98.1 78 20 132/84 (100) 93 09/21/20 00:00 98.0 86 20 127/79 (95) 94 09/20/20 21:00 Room Air 09/20/20 20:00 98.4 94 20 113/73 (86) 93 09/20/20 16:00 97.5 66 20 121/63 (82) 96 I&O Intake and Output 09/20/20 09/21/20 19:00 07:00 Intake Total 240 ml Output Total 550 ml Balance -310 ml Intake Oral 240 ml Output Urine Total 550 ml # Voids 3 # Bowel Movements 1 Cardiovascular: RSR Respiratory: clear, decreased breath sounds Abdomen: soft, flat, non-tender, present bowel sounds, non-distended Extremities: no edema, no tenderness, no cyanosis Laboratory Tests Test 09/20/20 16:15 09/20/20 21:25 09/21/20 06:12 09/21/20 06:20 POC Whole Blood Glucose 107 MG/DL (74-106) H 138 MG/DL (74-106) H 86 MG/DL (74-106) White Blood Count 10.4 K/UL (4.8-10.8) Red Blood Count 4.19 M/UL (4.70-6.10) L Hemoglobin 12.8 G/DL (14.2-18.0) L Hematocrit 39.2 % (42.0-52.0) L Mean Corpuscular Volume 94 FL (80-99) Mean Corpuscular Hemoglobin 30.6 PG (27.0-31.0) Mean Corpuscular Hemoglobin Concent 32.7 G/DL (32.0-36.0) Red Cell Distribution Width 16.1 % (11.6-14.8) H Platelet Count 323 K/UL (150-450) Mean Platelet Volume 7.0 FL (6.5-10.1) Neutrophils (%) (Auto) 69.6 % (45.0-75.0) Lymphocytes (%) (Auto) 18.3 % (20.0-45.0) L Monocytes (%) (Auto) 11.6 % (1.0-10.0) H Eosinophils (%) (Auto) 0.1 % (0.0-3.0) Basophils (%) (Auto) 0.4 % (0.0-2.0) Sodium Level 134 MMOL/L (136-145) L Potassium Level 3.8 MMOL/L (3.5-5.1) Chloride Level 101 MMOL/L (98-107) Carbon Dioxide Level 27 MMOL/L (21-32) Anion Gap 6 mmol/L (5-15) Blood Urea Nitrogen 21 mg/dL (7-18) H Creatinine 0.7 MG/DL (0.55-1.30) Estimat Glomerular Filtration Rate > 60 mL/min (>60) Glucose Level 87 MG/DL (74-106) Calcium Level 9.0 MG/DL (8.5-10.1) Total Bilirubin 0.8 MG/DL (0.2-1.0) Aspartate Amino Transf (AST/SGOT) 73 U/L (15-37) H Alanine Aminotransferase (ALT/SGPT) 41 U/L (12-78) Alkaline Phosphatase 162 U/L (46-116) H Total Protein 9.0 G/DL (6.4-8.2) H Albumin 2.4 G/DL (3.4-5.0) L Globulin 6.6 g/dL Albumin/Globulin Ratio 0.4 (1.0-2.7) L Test 09/21/20 12:14 POC Whole Blood Glucose 104 MG/DL (74-106) Plan Problems: (1) Pleural effusion Assessment & Plan: 59 male Covid positive respiratory shortness of breath identified to have massive pleural effusion left. Potentially loculated collection is identified on CT. We will begin with thoracentesis interventional radiology May require a chest tube as needed If significantly loculated or empyema or worsening will discuss with thoracic surgery Continue IV antibiotics per infectious disease cytology negative likely related to covid d/c planning Thank you will follow the recommendations pulmonary arteries are adequately opacified. No definite intraluminal filling defects or other findings to suggest acute pulmonary embolus are evident. No evidence of pulmonary arterial dilatation or right ventricular dilatation. No evidence of thoracic aortic aneurysm or dissection. Normal caliber and branching anatomy of the great neck vessels. There is a massive left pleural effusion. This demonstrates marked thickening and some enhancement of the of the pleural surface. There is a significant nondependent component anteriorly. This results in compressive atelectasis of significant portions of the left lower lobe and some of the left upper lobe. Multiple focal groundglass opacities are seen scattered throughout the right lung in a mostly peripheral distribution. No right pleural effusion is demonstrated. No right lung mass demonstrated. Prominent but not frankly enlarged right hilar nodes are demonstrated. Numerous prominent mediastinal nodes are demonstrated, particularly numerous in the prevascular space. The esophagus is unremarkable. The thyroid is unremarkable. Included upper abdominal anatomy demonstrates hepatic surface nodularity. Impression: No definite evidence of acute pulmonary embolus or other acute thoracic vascular pathology. Multifocal groundglass opacities in the right lung. This is concerning for multifocal pneumonia, likely viral Massive left pleural effusion. Presumably chronic and likely loculated, given the presence of considerable pleural thickening Considerable left lung parenchymal atelectasis related to the above Numerous and prominent mediastinal lymph nodes may indicate lymphadenopathy. Appearance nonspecific as regards etiology Evidence of hepatic cirrhosis Ultrasound used to localize optimal puncture site. Sterile prepping and draping left chest. Local anesthesia with 1% lidocaine. Under real-time ultrasound guidance, puncture pleural space using thoracentesis needle. Stylet removed. Catheter placed to vacuum bottle suction. Total 150 milliliters of cloudy yellow fluid aspirated. Specimen sent to the lab. Patient tolerated procedure well, without immediate complication. Findings: Initial sonography demonstrates heavily loculated septated fluid. Followup sonography demonstrates persistent pleural fluid Impression: Successful ultrasound-guided thoracentesis, yielding 150 milliliters of fluid. Note that fluid was incompletely evacuated, presumably due to collection being heavily loculated Lungs/pleura: Slightly increased opacities bilaterally. Stable small left pleural effusion. Heart/mediastinum: Stable mild enlargement of the cardiac silhouette. Soft tissues: Unremarkable. Bones: No acute fracture. Upper abdomen: Normal. IMPRESSION: Slightly increased opacities bilaterally. Stable small left pleural effusion. (2) Hypoxia (3) Coronavirus infection Assessment & Plan: ++ as per ID and pulm Roman Conway Sep 21, 2020 12:54
--- NOTE | 2020-09-21 13:04 | Diagnostic Imaging Report ---
Indication: Shortness of breath Technique: One view of the chest Comparison: 09/18/2020 Findings: Less optimal inspiration currently. Left pleural effusion persists, probably unchanged allowing for differences in degree of inspiration. There is a small focal infiltrate in the right midlung periphery, appearing somewhat more conspicuous although this could be an artifact of the lower lung volumes. Impression: Hypoventilatory exam. Equivocally slightly increased right midlung infiltrate. Otherwise little exchange engineer 3 days
--- NOTE | 2020-09-21 13:09 | NUR ---
RADIOLOGY DEPT., CHEST X-RAY DONE.-P.DYE
[2020-09-21 16:00] VITALS: BP 115/75
[2020-09-21] MEDS: dexAMETHasone 10mg/ml Inj IV SCH (16:03)
--- NOTE | 2020-09-21 18:20 | NUR ---
NURSE NOTES: OB stool collected; waiting for the result;
--- NOTE | 2020-09-21 18:50 | NUR ---
NURSE HAND-OFF: Important Events on Shift:OB stool collected; CT ABD for tomorrow, Patient Status: Diet: Pending Orders: Pending Results/Labs: Pending MD notification: Latest Vital Signs: Temperature 97.8 , Pulse 83 , B/P 115 /75 , Respiratory Rate 20 , O2 SAT 92 , , O2 Flow Rate 2.0 . Vital Sign Comment: Latest Harrell Fall Score: 20 Fall Risk: Low Risk Safety Measures: Call light Within Reach, Bed Alarm Zone 1, Side Rails Side Rails x2, Bed position Low and Locked. Fall Precautions: Yellow Socks Yellow Gown Patient Fall Education Report given to .
--- NOTE | 2020-09-21 19:34 | NUR ---
HAND-OFF: Report given to RONAL Saenz.
--- NOTE | 2020-09-21 19:35 | NUR ---
NURSE NOTES: Received patient in no apparent distress. A&OX4. IV site patent and intact. Bed in lowest position. Call light within reach. Will continue to monitor.
[2020-09-21 20:00] VITALS: BP 115/73
[2020-09-22] VITALS: BP 109/62
[2020-09-22 04:00] VITALS: BP 114/83
[2020-09-22 06:08] LABS: HEMATOCRIT 35.7 % (42.0-52.0); HEMOGLOBIN 11.4 G/DL (14.2-18.0); MEAN CORPUSCULAR VOLUME 93 FL (80-99); PLATELET COUNT 255 K/UL (150-450); RED BLOOD COUNT 3.83 M/UL (4.70-6.10); RED CELL DISTRIBUTION WIDTH 16.8 % (11.6-14.8); WHITE BLOOD COUNT 7.2 K/UL (4.8-10.8)
[2020-09-22 06:29] LABS: ALANINE AMINOTRANSFERASE 43 U/L (12-78); ALBUMIN/GLOBULIN RATIO 0.3 (1.0-2.7); ALKALINE PHOSPHATASE 150 U/L (46-116); ANION GAP 6 mmol/L (5-15); ASPARTATE AMINO TRANSFERASE 69 U/L (15-37); BILIRUBIN,TOTAL 0.5 MG/DL (0.2-1.0); BLOOD UREA NITROGEN 21 mg/dL (7-18); CALCIUM 8.6 MG/DL (8.5-10.1); CARBON DIOXIDE 26 MMOL/L (21-32); CHLORIDE 104 MMOL/L (98-107); CREATININE 0.7 MG/DL (0.55-1.30); POTASSIUM 3.9 MMOL/L (3.5-5.1); SODIUM 136 MMOL/L (136-145)
[2020-09-22] MEDS: NovoLOG Insulin Flexpen SUBQ SCH ×4 (06:30→20:27)
--- NOTE | 2020-09-22 07:17 | NUR ---
NURSE HAND-OFF: Important Events on Shift: Kept NPO for CT today. Patient Status: Diet: NPO Pending Orders: Pending Results/Labs: Pending MD notification: Latest Vital Signs: Temperature 97.4 , Pulse 61 , B/P 114 /83 , Respiratory Rate 20 , O2 SAT 95 , , O2 Flow Rate 2.0 . Vital Sign Comment: Latest Harrell Fall Score: 20 Fall Risk: Low Risk Safety Measures: Call light Within Reach, Bed Alarm Zone 1, Side Rails Side Rails x2, Bed position Low and Locked. Fall Precautions: Yellow Socks Yellow Gown Patient Fall Education Report given to Teresa VILLEDA.
--- NOTE | 2020-09-22 07:36 | NUR ---
NURSE NOTES: Patient alert x4; Nasal cannula 1 liters, patient sats well, no sing of distress and shortness of breath; no sing of chest pain; IV RAC flushes well; patient NPO for CT chest ABD, Ultra-sound department is aware of the order, said they going to do it this AM; patient is aware that should not eat; side rails up x2, breaks engaged, bed at lowest position; call light within reach; will keep monitoring.
[2020-09-22 08:00] VITALS: BP 125/82
[2020-09-22] MEDS: Vitamin D 400 units TAB ORAL SCH (08:15)
[2020-09-22] MEDS: Docusate 250mg cap ORAL SCH (08:15)
[2020-09-22] MEDS: Ascorbic Acid 500mg tab ORAL SCH (08:15)
[2020-09-22] MEDS: guaiFENesin ER 600mg tab ORAL SCH ×2 (08:15→17:23)
[2020-09-22] MEDS: Zinc Sulfate 220mg ORAL SCH (08:15)
[2020-09-22] MEDS: Enoxaparin 40mg Inj SUBQ SCH (08:16)
--- NOTE | 2020-09-22 08:17 | Pulmonology Progress Note ---
Subjective ROS Limited/Unobtainable: Yes Constitutional: Reports: fever Allergies: Coded Allergies: No Known Allergies (Unverified , 09/14/20) Subjective AFVSS on RA Feels better Less SOB less cough no FC no CP GI eval underway Objective Last 24 Hour Vital Signs Date Time Temp Pulse Resp B/P (MAP) Pulse Ox O2 Delivery O2 Flow Rate FiO2 09/22/20 04:00 97.4 61 20 114/83 (93) 95 09/22/20 00:00 97.2 79 20 109/62 (78) 93 09/21/20 21:00 Room Air 09/21/20 20:00 97.4 77 20 115/73 (87) 95 09/21/20 16:00 97.8 83 20 115/75 (88) 92 09/21/20 12:00 97.2 87 20 108/58 (75) 91 09/21/20 10:06 Room Air Intake and Output 09/21/20 09/22/20 19:00 07:00 Intake Total 720 ml Balance 720 ml Intake Oral 720 ml # Voids 3 3 General Appearance: no acute distress HEENT: normocephalic, atraumatic, anicteric, mucous membranes moist, PERRL, other - O2 3 L-4 L via NC Respiratory: lungs clear Cardiovascular: normal rate, regular rhythm Abdomen: soft, non tender Extremities: no edema, pedal pulses normal Skin: other - BLE reddishn/brown hyperpigmentation Neurologic: supervisor coil springs II-XII grossly normal, no motor/sensory deficits, alert, orient ed x 3, responsive Musculoskeletal: normal muscle bulk Laboratory Tests 09/21/20 12:14: POC Whole Blood Glucose 104 09/21/20 18:16: Stool Occult Blood [Pending] 09/21/20 21:17: POC Whole Blood Glucose 147H 09/22/20 05:32: White Blood Count 7.2, Red Blood Count 3.83L, Hemoglobin 11.4L, Hematocrit 35.7L , Mean Corpuscular Volume 93, Mean Corpuscular Hemoglobin 29.8, Mean Corpuscular Hemoglobin Concent 31.9L, Red Cell Distribution Width 16.8H, Platelet Count 255, Mean Platelet Volume 6.9, Neutrophils (%) (Auto) , Lymphocytes (%) (Auto) , Monocytes (%) (Auto) , Eosinophils (%) (Auto) , Basophils (%) (Auto) , Neutrophils % (Manual) [Pending], Lymphocytes % (Manual) [Pending], Platelet Estimate [Pending], Platelet Morphology [Pending], Sodium Level 136, Potassium Level 3.9, Chloride Level 104, Carbon Dioxide Level 26, Anion Gap 6, Blood Urea Nitrogen 21H, Creatinine 0.7, Estimat Glomerular Filtration Rate > 60, Glucose Level 97, Calcium Level 8.6, Total Bilirubin 0.5, Aspartate Amino Transf (AST/SGOT) 69H, Alanine Aminotransferase (ALT/SGPT) 43, Alkaline Phosphatase 150H, Total Protein 7.8, Albumin 2.0L, Globulin 5.8, Albumin/Globulin Ratio 0.3L 09/22/20 05:39: POC Whole Blood Glucose 93 Current Medications Medications (Trade) Dose Ordered Sig/Polo Route PRN Reason Start Time Stop Time Status Last Admin Dose Admin Acetaminophen (Tylenol) 650 mg Q4H PRN ORAL Mild Pain (Pain Scale 1-3) 09/14/20 22:15 10/14/20 22:14 09/15/20 16:32 Acetaminophen (Tylenol) 650 mg Q4H PRN ORAL Temp >100.5 09/14/20 22:15 10/14/20 22:14 Albuterol Sulfate (Proventil MDI) 2 puff Q4H PRN INH Shortness of Breath 09/14/20 22:15 12/13/20 22:14 Ascorbic Acid (Vitamin C) 500 mg DAILY ORAL 09/15/20 09:00 10/15/20 08:59 09/21/20 08:31 Dexamethasone Sodium Phosphate (Decadron 10mg/ ml Inj) 6 mg DAILY@1400 IV 09/15/20 14:00 09/24/20 14:01 09/21/20 16:03 Dextrose (Dextrose 50%) 25 ml Q30M PRN IV Hypoglycemia 09/14/20 23:00 12/13/20 22:59 Dextrose (Dextrose 50%) 50 ml Q30M PRN IV Hypoglycemia 09/14/20 23:00 12/13/20 22:59 Diphenhydramine HCl (Benadryl) 25 mg EVERY 4 HOURS PRN IVP Itching 09/14/20 22:15 10/14/20 22:14 09/20/20 22:28 Docusate Sodium (Colace) 250 mg DAILY ORAL 09/15/20 09:00 10/15/20 08:59 09/21/20 08:31 Enoxaparin Sodium (Lovenox) 60 mg DAILY SUBQ 09/21/20 09:00 12/14/20 08:59 09/21/20 08:32 Guaifenesin (Mucinex ER) 600 mg TWICE A DAY ORAL 09/15/20 09:00 12/14/20 08:59 09/21/20 17:30 Guaifenesin/ Codeine Phosphate (Robitussin with codeine) 5 ml EVERY 4 HOURS PRN ORAL For Cough 09/14/20 22:15 10/14/20 22:14 09/21/20 02:02 Guaifenesin/ Dextromethorphan (Robitussin DM Syrup) 5 ml Q4H PRN ORAL For Cough 09/14/20 22:15 12/13/20 22:14 Insulin Aspart (NovoLOG) BEFORE MEALS AND HS SUBQ 09/15/20 06:30 12/14/20 06:29 09/21/20 21:20 Ipratropium [place] (Atrovent Inh) 1 puffs EVERY 4 HOURS PRN INH Shortness of Breath 09/14/20 22:15 10/14/20 22:14 09/15/20 17:53 Multivitamins (Multivitamins) 1 tab DAILY ORAL 09/15/20 09:00 10/15/20 08:59 09/21/20 08:31 Ondansetron HCl (Zofran) 4 mg EVERY 4 HOURS PRN IVP Nausea & Vomiting 09/14/20 22:15 10/14/20 22:14 Pantoprazole (Protonix) 40 mg DAILY ORAL 09/22/20 09:00 10/22/20 08:59 Vitamin D (Vitamin D) 400 unit DAILY ORAL 09/15/20 09:00 10/15/20 08:59 09/21/20 08:31 Zinc Sulfate (Zinc Sulfate) 220 mg DAILY ORAL 09/15/20 09:00 12/14/20 08:59 09/21/20 08:31 Assessment/Plan Problems: (1) Loculated pleural effusion (2) Occult blood positive stool (3) Hypoxia (4) Coronavirus infection Assessment/Plan Optimize pulmonary hygiene/mobilize as tolerated PRN O2 PRN HFA's Continue DEX D8 S/P IVERMECTIN REM not approved Monitor for recurrence of effusion F/U surgery recs GI CONSULT pending given FOBT + F/U CT CAP c/s contrast Elevated CEA with loculated effusions concerning for an underlying malignancy, patient will need an extensive outpatient w/u, including PET/CT, onc and thoracic evaluation and likely VATS pleurodesis and pleural biopsy. I explained this in depth to the the patient who verbalized understanding. SW will provide patient with a list of county resources Monitor volumes and renal function DVT Px: LMWH FC Dispo planning home once acute issues resolved Nish Alonso MD Sep 22, 2020 08:17
--- NOTE | 2020-09-22 11:42 | General Progress Note ---
Subjective ROS Limited/Unobtainable: No Allergies: Coded Allergies: No Known Allergies (Unverified , 09/14/20) Objective Last 24 Hour Vital Signs Date Time Temp Pulse Resp B/P (MAP) Pulse Ox O2 Delivery O2 Flow Rate FiO2 09/22/20 09:00 Room Air 09/22/20 08:00 97.9 74 20 125/82 (96) 95 09/22/20 04:00 97.4 61 20 114/83 (93) 95 09/22/20 00:00 97.2 79 20 109/62 (78) 93 09/21/20 21:00 Room Air 09/21/20 20:00 97.4 77 20 115/73 (87) 95 09/21/20 16:00 97.8 83 20 115/75 (88) 92 09/21/20 12:00 97.2 87 20 108/58 (75) 91 Intake and Output 09/21/20 09/22/20 19:00 07:00 Intake Total 720 ml Balance 720 ml Intake Oral 720 ml # Voids 3 3 Laboratory Tests 09/21/20 12:14: POC Whole Blood Glucose 104 09/21/20 18:16: Stool Occult Blood Negative 09/21/20 21:17: POC Whole Blood Glucose 147H 09/22/20 05:32: White Blood Count 7.2, Red Blood Count 3.83L, Hemoglobin 11.4L, Hematocrit 35.7L , Mean Corpuscular Volume 93, Mean Corpuscular Hemoglobin 29.8, Mean Corpuscular Hemoglobin Concent 31.9L, Red Cell Distribution Width 16.8H, Platelet Count 255, Mean Platelet Volume 6.9, Neutrophils (%) (Auto) , Lymphocytes (%) (Auto) , Monocytes (%) (Auto) , Eosinophils (%) (Auto) , Basophils (%) (Auto) , Differential Total Cells Counted 100, Neutrophils % (Manual) 59, Lymphocytes % (Manual) 37, Monocytes % (Manual) 4, Eosinophils % (Manual) 0, Basophils % (Manual) 0, Band Neutrophils 0, Platelet Estimate Adequate, Platelet Morphology Normal, Hypochromasia 1+, Anisocytosis 1+, Sodium Level 136, Potassium Level 3.9, Chloride Level 104, Carbon Dioxide Level 26, Anion Gap 6, Blood Urea Nitrogen 21H, Creatinine 0.7, Estimat Glomerular Filtration Rate > 60, Glucose Level 97, Calcium Level 8.6, Total Bilirubin 0.5, Aspartate Amino Transf (AST/SGOT) 69H, Alanine Aminotransferase (ALT/SGPT) 43, Alkaline Phosphatase 150H, Total Protein 7.8, Albumin 2.0L, Globulin 5.8, Albumin/Globulin Ratio 0.3L 09/22/20 05:39: POC Whole Blood Glucose 93 Height (Feet): 5 Height (Inches): 5.00 Weight (Pounds): 121 General Appearance: no apparent distress EENT: normal ENT inspection Neck: supple Cardiovascular: normal rate Respiratory/Chest: decreased breath sounds Abdomen: normal bowel sounds, non tender, soft Extremities: non-tender Assessment/Plan Problem List: (1) Loculated pleural effusion ICD Codes: J90 - Pleural effusion, not elsewhere classified SNOMED: 519947483 (2) Occult blood positive stool ICD Codes: R19.5 - Other fecal abnormalities SNOMED: 06246419 (3) Coronavirus infection ICD Codes: B34.2 - Coronavirus infection, unspecified SNOMED: 645570506 (4) Hypoxia ICD Codes: R09.02 - Hypoxemia SNOMED: 697500074 (5) Pleural effusion ICD Codes: J90 - Pleural effusion, not elsewhere classified SNOMED: 71826673 Assessment/Plan: given stable H&H, and given active Covid will hold GI procedures at this time unless urgent repeat CBC and stool ob>>now neg add pii will Kris Yanes MD Sep 22, 2020 11:42
[2020-09-22 12:00] VITALS: BP 127/80
--- NOTE | 2020-09-22 12:43 | Infectious Diseases Prog Note ---
Assessment/Plan Assessment/Plan A 1. COVID19 pneumonia 2. diabetes mellitus 3. cirrhosis 4. Pleural effusion 5. Hypoxemia resolved P 1. Discontinue dexamethasone 2. Clear for discharge Subjective ROS Limited/Unobtainable: Yes Allergies: Coded Allergies: No Known Allergies (Unverified , 09/14/20) Objective Last 24 Hour Vital Signs Date Time Temp Pulse Resp B/P (MAP) Pulse Ox O2 Delivery O2 Flow Rate FiO2 09/22/20 12:00 96.8 67 19 127/80 (96) 100 09/22/20 09:00 Room Air 09/22/20 08:00 97.9 74 20 125/82 (96) 95 09/22/20 04:00 97.4 61 20 114/83 (93) 95 09/22/20 00:00 97.2 79 20 109/62 (78) 93 09/21/20 21:00 Room Air 09/21/20 20:00 97.4 77 20 115/73 (87) 95 09/21/20 16:00 97.8 83 20 115/75 (88) 92 Height (Feet): 5 Height (Inches): 5.00 Weight (Pounds): 121 HEENT: mucous membranes moist Respiratory/Chest: no respiratory distress, other - on room air oxygen Cardiovascular: normal rate Abdomen: soft, non tender Extremities: no edema Neurologic/Psychiatric: alert, responsive Laboratory Tests Test 09/21/20 18:16 09/21/20 21:17 09/22/20 05:32 09/22/20 05:39 Stool Occult Blood Negative (NEGATIVE) POC Whole Blood Glucose 147 MG/DL (74-106) H 93 MG/DL (74-106) White Blood Count 7.2 K/UL (4.8-10.8) Red Blood Count 3.83 M/UL (4.70-6.10) L Hemoglobin 11.4 G/DL (14.2-18.0) L Hematocrit 35.7 % (42.0-52.0) L Mean Corpuscular Volume 93 FL (80-99) Mean Corpuscular Hemoglobin 29.8 PG (27.0-31.0) Mean Corpuscular Hemoglobin Concent 31.9 G/DL (32.0-36.0) L Red Cell Distribution Width 16.8 % (11.6-14.8) H Platelet Count 255 K/UL (150-450) Mean Platelet Volume 6.9 FL (6.5-10.1) Neutrophils (%) (Auto) % (45.0-75.0) Lymphocytes (%) (Auto) % (20.0-45.0) Monocytes (%) (Auto) % (1.0-10.0) Eosinophils (%) (Auto) % (0.0-3.0) Basophils (%) (Auto) % (0.0-2.0) Differential Total Cells Counted 100 Neutrophils % (Manual) 59 % (45-75) Lymphocytes % (Manual) 37 % (20-45) Monocytes % (Manual) 4 % (1-10) Eosinophils % (Manual) 0 % (0-3) Basophils % (Manual) 0 % (0-2) Band Neutrophils 0 % (0-8) Platelet Estimate Adequate Platelet Morphology Normal Hypochromasia 1+ Anisocytosis 1+ Sodium Level 136 MMOL/L (136-145) Potassium Level 3.9 MMOL/L (3.5-5.1) Chloride Level 104 MMOL/L (98-107) Carbon Dioxide Level 26 MMOL/L (21-32) Anion Gap 6 mmol/L (5-15) Blood Urea Nitrogen 21 mg/dL (7-18) H Creatinine 0.7 MG/DL (0.55-1.30) Estimat Glomerular Filtration Rate > 60 mL/min (>60) Glucose Level 97 MG/DL (74-106) Calcium Level 8.6 MG/DL (8.5-10.1) Total Bilirubin 0.5 MG/DL (0.2-1.0) Aspartate Amino Transf (AST/SGOT) 69 U/L (15-37) H Alanine Aminotransferase (ALT/SGPT) 43 U/L (12-78) Alkaline Phosphatase 150 U/L (46-116) H Total Protein 7.8 G/DL (6.4-8.2) Albumin 2.0 G/DL (3.4-5.0) L Globulin 5.8 g/dL Albumin/Globulin Ratio 0.3 (1.0-2.7) L Current Medications Medications (Trade) Dose Ordered Sig/Polo Route PRN Reason Start Time Stop Time Status Last Admin Dose Admin Acetaminophen (Tylenol) 650 mg Q4H PRN ORAL Mild Pain (Pain Scale 1-3) 09/14/20 22:15 10/14/20 22:14 09/15/20 16:32 Acetaminophen (Tylenol) 650 mg Q4H PRN ORAL Temp >100.5 09/14/20 22:15 10/14/20 22:14 Albuterol Sulfate (Proventil MDI) 2 puff Q4H PRN INH Shortness of Breath 09/14/20 22:15 12/13/20 22:14 Ascorbic Acid (Vitamin C) 500 mg DAILY ORAL 09/15/20 09:00 10/15/20 08:59 09/22/20 08:15 Dexamethasone Sodium Phosphate (Decadron 10mg/ ml Inj) 6 mg DAILY@1400 IV 09/15/20 14:00 09/24/20 14:01 09/21/20 16:03 Dextrose (Dextrose 50%) 25 ml Q30M PRN IV Hypoglycemia 09/14/20 23:00 12/13/20 22:59 Dextrose (Dextrose 50%) 50 ml Q30M PRN IV Hypoglycemia 09/14/20 23:00 12/13/20 22:59 Diphenhydramine HCl (Benadryl) 25 mg EVERY 4 HOURS PRN IVP Itching 09/14/20 22:15 10/14/20 22:14 09/20/20 22:28 Docusate Sodium (Colace) 250 mg DAILY ORAL 09/15/20 09:00 10/15/20 08:59 09/22/20 08:15 Enoxaparin Sodium (Lovenox) 60 mg DAILY SUBQ 09/21/20 09:00 12/14/20 08:59 09/22/20 08:16 Guaifenesin (Mucinex ER) 600 mg TWICE A DAY ORAL 09/15/20 09:00 12/14/20 08:59 09/22/20 08:15 Guaifenesin/ Codeine Phosphate (Robitussin with codeine) 5 ml EVERY 4 HOURS PRN ORAL For Cough 09/14/20 22:15 10/14/20 22:14 09/21/20 02:02 Guaifenesin/ Dextromethorphan (Robitussin DM Syrup) 5 ml Q4H PRN ORAL For Cough 09/14/20 22:15 12/13/20 22:14 Insulin Aspart (NovoLOG) BEFORE MEALS AND HS SUBQ 09/15/20 06:30 12/14/20 06:29 09/21/20 21:20 Ipratropium [place] (Atrovent Inh) 1 puffs EVERY 4 HOURS PRN INH Shortness of Breath 09/14/20 22:15 10/14/20 22:14 09/15/20 17:53 Multivitamins (Multivitamins) 1 tab DAILY ORAL 09/15/20 09:00 10/15/20 08:59 09/22/20 08:15 Ondansetron HCl (Zofran) 4 mg EVERY 4 HOURS PRN IVP Nausea & Vomiting 09/14/20 22:15 10/14/20 22:14 Pantoprazole (Protonix) 40 mg DAILY ORAL 09/22/20 09:00 10/22/20 08:59 09/22/20 08:14 Vitamin D (Vitamin D) 400 unit DAILY ORAL 09/15/20 09:00 10/15/20 08:59 09/22/20 08:15 Zinc Sulfate (Zinc Sulfate) 220 mg DAILY ORAL 09/15/20 09:00 12/14/20 08:59 09/22/20 08:15 Arian Varner MD Sep 22, 2020 12:43
--- NOTE | 2020-09-22 13:12 | Diagnostic Imaging Report ---
EXAM: CT CT Chest Abdomen Pelvis w/Cont INDICATION: History of loculated pleural effusion and occult blood positive stool. Elevated CEA. Chest and abdominal pain. COMPARISON: CTA chest 09/14/2020 TECHNIQUE: Axial images were obtained through the chest, abdomen and pelvis with intravenous contrast. Sagittal and coronal reformats are generated. All CT scans at this facility are performed using dose modulation techniques as appropriate to a performed exam including the following: automated exposure control with adjustment of the mA and/or kV according to patient size. RADIATION DOSE: CTDIvol: 46 mGy DLP: 599.1 mGy-cm Dose information generated by the CT scanner is available in PACS. CHEST FINDINGS: There are multifocal peripheral groundglass infiltrates noted primarily in the right lung consistent with the patient's positive Covid history. In the left lung, there is a mildly loculated left effusion with slightly thickened and enhancing pleura. A small focus of air is noted within the left loculated effusion. Question history of prior thoracentesis. Compressive atelectasis/infiltrates noted in the dependent aspect of the left lower lobe. Cardiac and mediastinal structures are within normal limits. There are small lymph nodes noted in the mediastinum and axilla. No pathologic size adenopathy seen. No acute osseous abnormality seen. ABDOMEN/PELVIS FINDINGS: The liver appears homogeneous but there is nodular contour suggestive of underlying cirrhotic changes. Spleen is nonenlarged. No space-occupying lesion seen presently. There are several layering gallstones. The pancreas is unremarkable. Adrenals are normal in morphology. A small left renal cyst noted. No renal stone or hydronephrosis. Small bowel loops are nondistended. Increased stool lucencies noted throughout the colon. There is mild scattered diverticulosis without sign of acute diverticulitis. The appendix is normal. There is no free fluid or free air. No pathologic adenopathy demonstrated. Urinary bladder appears unremarkable. There is a fatty umbilical hernia. Mild degenerative changes of the spine noted. No discrete acute bony abnormality seen. IMPRESSION: GROUNDGLASS PERIPHERAL INFILTRATES MAINLY IN THE RIGHT LUNG CONSISTENT WITH PATIENT'S POSITIVE COVID HISTORY. MILDLY LOCULATED [id number] LEFT PLEURAL EFFUSION WITH SLIGHTLY THICKENED AND ENHANCING PLEURA. SMALL FOCUS OF AIR NOTED WITHIN THE LOCULATED COLLECTION. QUESTION HISTORY OF PRIOR THORACENTESIS. DEPENDENT ATELECTASIS VERSUS INFILTRATES LEFT LUNG BASE. CIRRHOTIC CHANGES OF THE LIVER. GALLSTONES. DIVERTICULOSIS WITHOUT DIVERTICULITIS. INCREASED STOOL LUCENCIES THROUGHOUT THE COLON. FATTY UMBILICAL HERNIA.
--- NOTE | 2020-09-22 14:12 | NUR ---
CASE MANAGEMENT:REVIEW SI;COVID PNEUMONIA. LOCULATED PLEURAL EFFUSION. HYPOXIA. STOOL OB POSITIVE. 97.9 79 20 127/80 93% ON RA BUN+ 21 AST+ 69 ALP+ 150 ALB- 2.0 IS;PROTONIX PO QD LOVENOX SQ QD MUCINEX ER PO BID VITAMIN D PO QD ZINC SULFATE PO QD VITAMIN C PO QD MED SURG STATUS DCP;FROM HOME
[2020-09-22 16:00] VITALS: BP 112/71
--- NOTE | 2020-09-22 18:12 | Surgery Progress Note ---
Surgery Progress Note Subjective Symptoms: improved, tolerating diet, passing flatus Objective Last 24 Hour Vital Signs Date Time Temp Pulse Resp B/P (MAP) Pulse Ox O2 Delivery O2 Flow Rate FiO2 09/22/20 16:00 97.7 85 18 112/71 (85) 97 09/22/20 12:00 96.8 67 19 127/80 (96) 100 09/22/20 09:00 Room Air 09/22/20 08:00 97.9 74 20 125/82 (96) 95 09/22/20 04:00 97.4 61 20 114/83 (93) 95 09/22/20 00:00 97.2 79 20 109/62 (78) 93 09/21/20 21:00 Room Air 09/21/20 20:00 97.4 77 20 115/73 (87) 95 I&O Intake and Output 09/21/20 09/22/20 19:00 07:00 Intake Total 720 ml Balance 720 ml Intake Oral 720 ml # Voids 3 3 Cardiovascular: RSR Respiratory: clear, decreased breath sounds Abdomen: soft, flat, non-tender, present bowel sounds, non-distended Extremities: no edema, no tenderness, no cyanosis Laboratory Tests Test 09/21/20 18:16 09/21/20 21:17 09/22/20 05:32 09/22/20 05:39 Stool Occult Blood Negative (NEGATIVE) POC Whole Blood Glucose 147 MG/DL (74-106) H 93 MG/DL (74-106) White Blood Count 7.2 K/UL (4.8-10.8) Red Blood Count 3.83 M/UL (4.70-6.10) L Hemoglobin 11.4 G/DL (14.2-18.0) L Hematocrit 35.7 % (42.0-52.0) L Mean Corpuscular Volume 93 FL (80-99) Mean Corpuscular Hemoglobin 29.8 PG (27.0-31.0) Mean Corpuscular Hemoglobin Concent 31.9 G/DL (32.0-36.0) L Red Cell Distribution Width 16.8 % (11.6-14.8) H Platelet Count 255 K/UL (150-450) Mean Platelet Volume 6.9 FL (6.5-10.1) Neutrophils (%) (Auto) % (45.0-75.0) Lymphocytes (%) (Auto) % (20.0-45.0) Monocytes (%) (Auto) % (1.0-10.0) Eosinophils (%) (Auto) % (0.0-3.0) Basophils (%) (Auto) % (0.0-2.0) Differential Total Cells Counted 100 Neutrophils % (Manual) 59 % (45-75) Lymphocytes % (Manual) 37 % (20-45) Monocytes % (Manual) 4 % (1-10) Eosinophils % (Manual) 0 % (0-3) Basophils % (Manual) 0 % (0-2) Band Neutrophils 0 % (0-8) Platelet Estimate Adequate Platelet Morphology Normal Hypochromasia 1+ Anisocytosis 1+ Sodium Level 136 MMOL/L (136-145) Potassium Level 3.9 MMOL/L (3.5-5.1) Chloride Level 104 MMOL/L (98-107) Carbon Dioxide Level 26 MMOL/L (21-32) Anion Gap 6 mmol/L (5-15) Blood Urea Nitrogen 21 mg/dL (7-18) H Creatinine 0.7 MG/DL (0.55-1.30) Estimat Glomerular Filtration Rate > 60 mL/min (>60) Glucose Level 97 MG/DL (74-106) Calcium Level 8.6 MG/DL (8.5-10.1) Total Bilirubin 0.5 MG/DL (0.2-1.0) Aspartate Amino Transf (AST/SGOT) 69 U/L (15-37) H Alanine Aminotransferase (ALT/SGPT) 43 U/L (12-78) Alkaline Phosphatase 150 U/L (46-116) H Total Protein 7.8 G/DL (6.4-8.2) Albumin 2.0 G/DL (3.4-5.0) L Globulin 5.8 g/dL Albumin/Globulin Ratio 0.3 (1.0-2.7) L Plan Problems: (1) Pleural effusion Assessment & Plan: 59 male Covid positive respiratory shortness of breath identified to have massive pleural effusion left. Potentially loculated collection is identified on CT. We will begin with thoracentesis interventional radiology May require a chest tube as needed If significantly loculated or empyema or worsening will discuss with thoracic surgery Continue IV antibiotics per infectious disease cytology negative likely related to covid d/c planning Thank you will follow the recommendations pulmonary arteries are adequately opacified. No definite intraluminal filling defects or other findings to suggest acute pulmonary embolus are evident. No evidence of pulmonary arterial dilatation or right ventricular dilatation. No evidence of thoracic aortic aneurysm or dissection. Normal caliber and branching anatomy of the great neck vessels. There is a massive left pleural effusion. This demonstrates marked thickening and some enhancement of the of the pleural surface. There is a significant nondependent component anteriorly. This results in compressive atelectasis of significant portions of the left lower lobe and some of the left upper lobe. Multiple focal groundglass opacities are seen scattered throughout the right lung in a mostly peripheral distribution. No right pleural effusion is demonstrated. No right lung mass demonstrated. Prominent but not frankly enlarged right hilar nodes are demonstrated. Numerous prominent mediastinal nodes are demonstrated, particularly numerous in the prevascular space. The esophagus is unremarkable. The thyroid is unremarkable. Included upper abdominal anatomy demonstrates hepatic surface nodularity. Impression: No definite evidence of acute pulmonary embolus or other acute thoracic vascular pathology. Multifocal groundglass opacities in the right lung. This is concerning for multifocal pneumonia, likely viral Massive left pleural effusion. Presumably chronic and likely loculated, given the presence of considerable pleural thickening Considerable left lung parenchymal atelectasis related to the above Numerous and prominent mediastinal lymph nodes may indicate lymphadenopathy. Appearance nonspecific as regards etiology Evidence of hepatic cirrhosis Ultrasound used to localize optimal puncture site. Sterile prepping and draping left chest. Local anesthesia with 1% lidocaine. Under real-time ultrasound guidance, puncture pleural space using thoracentesis needle. Stylet removed. Catheter placed to vacuum bottle suction. Total 150 milliliters of cloudy yellow fluid aspirated. Specimen sent to the lab. Patient tolerated procedure well, without immediate complication. Findings: Initial sonography demonstrates heavily loculated septated fluid. Followup sonography demonstrates persistent pleural fluid Impression: Successful ultrasound-guided thoracentesis, yielding 150 milliliters of fluid. Note that fluid was incompletely evacuated, presumably due to collection being heavily loculated Lungs/pleura: Slightly increased opacities bilaterally. Stable small left pleural effusion. Heart/mediastinum: Stable mild enlargement of the cardiac silhouette. Soft tissues: Unremarkable. Bones: No acute fracture. Upper abdomen: Normal. IMPRESSION: Slightly increased opacities bilaterally. Stable small left pleural effusion. (2) Hypoxia (3) Coronavirus infection Assessment & Plan: ++ as per ID and pulm Benyamini,Roman Sep 22, 2020 18:12
--- NOTE | 2020-09-22 18:17 | NUR ---
NURSE HAND-OFF: Important Events on Shift:CT Chest/ABD/Pelvis done Patient Status: Diet: Pending Orders: Pending Results/Labs: Pending MD notification: Latest Vital Signs: Temperature 97.7 , Pulse 85 , B/P 112 /71 , Respiratory Rate 18 , O2 SAT 97 , , O2 Flow Rate 2.0 . Vital Sign Comment: Latest Harrell Fall Score: 20 Fall Risk: Low Risk Safety Measures: Call light Within Reach, Bed Alarm Zone 1, Side Rails Side Rails x2, Bed position Low and Locked. Fall Precautions: Yellow Socks Yellow Gown Patient Fall Education Report given to .
--- NOTE | 2020-09-22 19:22 | NUR ---
HAND-OFF: Report given to RONAL Caceres.
--- NOTE | 2020-09-22 19:30 | NUR ---
NURSE NOTES: Patient awake in bed, watching TV, on room air, no sign of respiratory distress. IV on right AC g.20. Call light in reach. Bed in lowest, lock engaged and alarm on. Will continue to monitor.
[2020-09-22 20:00] VITALS: BP 111/66
[2020-09-23] VITALS: BP 141/60
[2020-09-23 04:00] VITALS: BP 116/66
[2020-09-23] MEDS: NovoLOG Insulin Flexpen SUBQ SCH ×2 (05:48→11:30)
--- NOTE | 2020-09-23 06:55 | NUR ---
NURSE HAND-OFF: Important Events on Shift: Patient Status: Diet: regular Pending Orders: Pending Results/Labs: Pending MD notification: Latest Vital Signs: Temperature 99.1 , Pulse 86 , B/P 116 /66 , Respiratory Rate 18 , O2 SAT 96 , , O2 Flow Rate 2.0 . Vital Sign Comment: Latest Harrell Fall Score: 20 Fall Risk: Low Risk Safety Measures: Call light Within Reach, Bed Alarm Zone 1, Side Rails Side Rails x2, Bed position Low and Locked. Fall Precautions: Yellow Socks Yellow Gown Patient Fall Education Report given to Ms. Rios RN..
[2020-09-23 08:00] VITALS: BP 135/78
--- NOTE | 2020-09-23 08:00 | NUR ---
NURSE NOTES: RN received report from Norah and patient in bed. Patient AAOX4, shows no s/s of respiratory distress on RA or pain. IV is patent, dry, intact, asymptomatic. Bed in lowest position and locked. Call light within reach. Will continue to monitor.
[2020-09-23] MEDS: guaiFENesin ER 600mg tab ORAL SCH (08:45)
[2020-09-23] MEDS: Ascorbic Acid 500mg tab ORAL SCH (08:45)
[2020-09-23] MEDS: Vitamin D 400 units TAB ORAL SCH (08:45)
[2020-09-23] MEDS: Zinc Sulfate 220mg ORAL SCH (08:45)
[2020-09-23] MEDS: Docusate 250mg cap ORAL SCH (08:45)
--- NOTE | 2020-09-23 08:46 | NUR ---
RD ASSESSMENT & RECOMMENDATIONS SEE CARE ACTIVITY FOR COMPLETE ASSESSMENT DAILY ESTIMATED NEEDS: Needs based on Pulmonary 66.4kg 25-30 kcals/kg total kcals 1-1.5 g protein/kg 66-100 g total protein 25-30 mL/kg total fluid mLs NUTRITION DIAGNOSIS: Altered nutrition related lab values r/t clinical status as evidenced by elev A1C (6.2), elev CEA (5.6). CURRENT DIET: Regular PO DIET RECOMMENDATIONS: Regular diet ADDITIONAL RECOMMENDATIONS: 1) Monitor BG, need for carb control diet 2) On room air, monitor resp status w/ continued good po intake 3) Obtain a standing scale wt for accurate CBW EMR wt variable: 56-66kg.
[2020-09-23] MEDS: Enoxaparin 40mg Inj SUBQ SCH (08:47)
--- NOTE | 2020-09-23 10:46 | Surgery Progress Note ---
Surgery Progress Note Subjective Symptoms: improved, tolerating diet, passing flatus, BM Objective Last 24 Hour Vital Signs Date Time Temp Pulse Resp B/P (MAP) Pulse Ox O2 Delivery O2 Flow Rate FiO2 09/23/20 08:00 99.1 96 18 135/78 (97) 97 09/23/20 04:00 99.1 86 18 116/66 (83) 96 09/23/20 00:00 97.7 85 20 141/60 (87) 95 09/22/20 21:00 Room Air 09/22/20 20:00 97.7 82 18 111/66 (81) 94 09/22/20 19:10 76 18 94 Room Air 21 09/22/20 19:10 94 Room Air 21 09/22/20 16:00 97.7 85 18 112/71 (85) 97 09/22/20 12:00 96.8 67 19 127/80 (96) 100 I&O Intake and Output 09/22/20 09/23/20 19:00 07:00 Intake Total 600 ml Balance 600 ml Intake Oral 600 ml # Voids 5 2 Dressing: dry Cardiovascular: RSR Respiratory: decreased breath sounds Abdomen: soft, flat, non-tender, present bowel sounds, non-distended Extremities: no edema, no tenderness, no cyanosis Laboratory Tests Test 09/22/20 20:07 09/23/20 05:47 POC Whole Blood Glucose 107 MG/DL (74-106) H Pending Plan Problems: (1) Pleural effusion Assessment & Plan: 59 male Covid positive respiratory shortness of breath identified to have massive pleural effusion left. Potentially loculated collection is identified on CT. We will begin with thoracentesis interventional radiology May require a chest tube as needed If significantly loculated or empyema or worsening will discuss with thoracic surgery Continue IV antibiotics per infectious disease cytology negative likely related to covid d/c planning Thank you will follow the recommendations pulmonary arteries are adequately opacified. No definite intraluminal filling defects or other findings to suggest acute pulmonary embolus are evident. No evidence of pulmonary arterial dilatation or right ventricular dilatation. No evidence of thoracic aortic aneurysm or dissection. Normal caliber and branching anatomy of the great neck vessels. There is a massive left pleural effusion. This demonstrates marked thickening and some enhancement of the of the pleural surface. There is a significant nondependent component anteriorly. This results in compressive atelectasis of significant portions of the left lower lobe and some of the left upper lobe. Multiple focal groundglass opacities are seen scattered throughout the right lung in a mostly peripheral distribution. No right pleural effusion is demonstrated. No right lung mass demonstrated. Prominent but not frankly enlarged right hilar nodes are demonstrated. Numerous prominent mediastinal nodes are demonstrated, particularly numerous in the prevascular space. The esophagus is unremarkable. The thyroid is unremarkable. Included upper abdominal anatomy demonstrates hepatic surface nodularity. Impression: No definite evidence of acute pulmonary embolus or other acute thoracic vascular pathology. Multifocal groundglass opacities in the right lung. This is concerning for multifocal pneumonia, likely viral Massive left pleural effusion. Presumably chronic and likely loculated, given the presence of considerable pleural thickening Considerable left lung parenchymal atelectasis related to the above Numerous and prominent mediastinal lymph nodes may indicate lymphadenopathy. Appearance nonspecific as regards etiology Evidence of hepatic cirrhosis Ultrasound used to localize optimal puncture site. Sterile prepping and draping left chest. Local anesthesia with 1% lidocaine. Under real-time ultrasound guidance, puncture pleural space using thoracentesis needle. Stylet removed. Catheter placed to vacuum bottle suction. Total 150 milliliters of cloudy yellow fluid aspirated. Specimen sent to the lab. Patient tolerated procedure well, without immediate complication. Findings: Initial sonography demonstrates heavily loculated septated fluid. Followup sonography demonstrates persistent pleural fluid Impression: Successful ultrasound-guided thoracentesis, yielding 150 milliliters of fluid. Note that fluid was incompletely evacuated, presumably due to collection being heavily loculated Lungs/pleura: Slightly increased opacities bilaterally. Stable small left pleural effusion. Heart/mediastinum: Stable mild enlargement of the cardiac silhouette. Soft tissues: Unremarkable. Bones: No acute fracture. Upper abdomen: Normal. IMPRESSION: Slightly increased opacities bilaterally. Stable small left pleural effusion. (2) Hypoxia (3) Coronavirus infection Assessment & Plan: ++ as per ID and pulm Roman Conway Sep 23, 2020 10:46
--- NOTE | 2020-09-23 11:58 | Infectious Diseases Prog Note ---
Assessment/Plan Assessment/Plan antibiotics : none A 1. covid 19 pneumonia on room air with O2 100 % saturation s/p ivermectin 2. diabetes mellitus 3. cirrhosis P 1. complete dexamethasone day 10 2. continue isolation Subjective Constitutional: Denies: fever, chills Respiratory: Denies: shortness of breath, dry cough Gastrointestinal/Abdominal: Denies: nausea, vomiting, diarrhea Musculoskeletal: Denies: pain Allergies: Coded Allergies: No Known Allergies (Unverified , 09/14/20) Objective Last 24 Hour Vital Signs Date Time Temp Pulse Resp B/P (MAP) Pulse Ox O2 Delivery O2 Flow Rate FiO2 09/23/20 08:00 99.1 96 18 135/78 (97) 97 09/23/20 04:00 99.1 86 18 116/66 (83) 96 09/23/20 00:00 97.7 85 20 141/60 (87) 95 09/22/20 21:00 Room Air 09/22/20 20:00 97.7 82 18 111/66 (81) 94 09/22/20 19:10 76 18 94 Room Air 21 09/22/20 19:10 94 Room Air 21 09/22/20 16:00 97.7 85 18 112/71 (85) 97 09/22/20 12:00 96.8 67 19 127/80 (96) 100 Height (Feet): 5 Height (Inches): 5.00 Weight (Pounds): 121 Laboratory Tests Test 09/22/20 20:07 09/23/20 05:47 09/23/20 11:38 POC Whole Blood Glucose 107 MG/DL (74-106) H Pending 88 MG/DL (74-106) Current Medications Medications (Trade) Dose Ordered Sig/Polo Route PRN Reason Start Time Stop Time Status Last Admin Dose Admin Acetaminophen (Tylenol) 650 mg Q4H PRN ORAL Mild Pain (Pain Scale 1-3) 09/14/20 22:15 10/14/20 22:14 09/15/20 16:32 Acetaminophen (Tylenol) 650 mg Q4H PRN ORAL Temp >100.5 09/14/20 22:15 10/14/20 22:14 Albuterol Sulfate (Proventil MDI) 2 puff Q4H PRN INH Shortness of Breath 09/14/20 22:15 12/13/20 22:14 Ascorbic Acid (Vitamin C) 500 mg DAILY ORAL 09/15/20 09:00 10/15/20 08:59 09/23/20 08:45 Dextrose (Dextrose 50%) 25 ml Q30M PRN IV Hypoglycemia 09/14/20 23:00 12/13/20 22:59 Dextrose (Dextrose 50%) 50 ml Q30M PRN IV Hypoglycemia 09/14/20 23:00 12/13/20 22:59 Diphenhydramine HCl (Benadryl) 25 mg EVERY 4 HOURS PRN IVP Itching 09/14/20 22:15 10/14/20 22:14 09/20/20 22:28 Docusate Sodium (Colace) 250 mg DAILY ORAL 09/15/20 09:00 10/15/20 08:59 09/23/20 08:45 Enoxaparin Sodium (Lovenox) 60 mg DAILY SUBQ 09/21/20 09:00 12/14/20 08:59 09/23/20 08:47 Guaifenesin (Mucinex ER) 600 mg TWICE A DAY ORAL 09/15/20 09:00 12/14/20 08:59 09/23/20 08:45 Guaifenesin/ Codeine Phosphate (Robitussin with codeine) 5 ml EVERY 4 HOURS PRN ORAL For Cough 09/14/20 22:15 10/14/20 22:14 09/21/20 02:02 Guaifenesin/ Dextromethorphan (Robitussin DM Syrup) 5 ml Q4H PRN ORAL For Cough 09/14/20 22:15 12/13/20 22:14 Insulin Aspart (NovoLOG) BEFORE MEALS AND HS SUBQ 09/15/20 06:30 12/14/20 06:29 09/21/20 21:20 Ipratropium [place] (Atrovent Inh) 1 puffs EVERY 4 HOURS PRN INH Shortness of Breath 09/14/20 22:15 10/14/20 22:14 09/15/20 17:53 Multivitamins (Multivitamins) 1 tab DAILY ORAL 09/15/20 09:00 10/15/20 08:59 09/23/20 08:45 Ondansetron HCl (Zofran) 4 mg EVERY 4 HOURS PRN IVP Nausea & Vomiting 09/14/20 22:15 10/14/20 22:14 Pantoprazole (Protonix) 40 mg DAILY ORAL 09/22/20 09:00 10/22/20 08:59 09/23/20 08:45 Vitamin D (Vitamin D) 400 unit DAILY ORAL 09/15/20 09:00 10/15/20 08:59 09/23/20 08:45 Zinc Sulfate (Zinc Sulfate) 220 mg DAILY ORAL 09/15/20 09:00 12/14/20 08:59 09/23/20 08:45 Gena Caceres MD Sep 23, 2020 11:58
[2020-09-23 12:00] VITALS: BP 138/85
--- NOTE | 2020-09-23 12:21 | General Progress Note ---
Subjective ROS Limited/Unobtainable: No Allergies: Coded Allergies: No Known Allergies (Unverified , 09/14/20) Objective Last 24 Hour Vital Signs Date Time Temp Pulse Resp B/P (MAP) Pulse Ox O2 Delivery O2 Flow Rate FiO2 09/23/20 08:00 99.1 96 18 135/78 (97) 97 09/23/20 04:00 99.1 86 18 116/66 (83) 96 09/23/20 00:00 97.7 85 20 141/60 (87) 95 09/22/20 21:00 Room Air 09/22/20 20:00 97.7 82 18 111/66 (81) 94 09/22/20 19:10 76 18 94 Room Air 21 09/22/20 19:10 94 Room Air 21 09/22/20 16:00 97.7 85 18 112/71 (85) 97 Intake and Output 09/22/20 09/23/20 19:00 07:00 Intake Total 600 ml Balance 600 ml Intake Oral 600 ml # Voids 5 2 Laboratory Tests 09/22/20 20:07: POC Whole Blood Glucose 107H 09/23/20 05:47: POC Whole Blood Glucose [Pending] 09/23/20 11:38: POC Whole Blood Glucose 88 Height (Feet): 5 Height (Inches): 5.00 Weight (Pounds): 121 General Appearance: no apparent distress EENT: normal ENT inspection Neck: supple Cardiovascular: normal rate Respiratory/Chest: decreased breath sounds Abdomen: normal bowel sounds, non tender, soft Extremities: non-tender Assessment/Plan Problem List: (1) Loculated pleural effusion ICD Codes: J90 - Pleural effusion, not elsewhere classified SNOMED: 234648043 (2) Occult blood positive stool ICD Codes: R19.5 - Other fecal abnormalities SNOMED: 96043501 (3) Coronavirus infection ICD Codes: B34.2 - Coronavirus infection, unspecified SNOMED: 017735876 (4) Hypoxia ICD Codes: R09.02 - Hypoxemia SNOMED: 998404045 (5) Pleural effusion ICD Codes: J90 - Pleural effusion, not elsewhere classified SNOMED: 91765776 Assessment/Plan: given stable H&H, and given active Covid will hold GI procedures at this time unless urgent repeat CBC and stool ob>>now neg add pii will Mg Yanesdad MD Sep 23, 2020 12:20
--- NOTE | 2020-09-23 12:45 | NUR ---
Patient signed AMA. Mateo called Dr. Alonso and a left message. Patient's vitals stable, aao X4, no s/s of respiratory distress on RA or pain noted. Belongings verified and signed by the patient. IV and ID band removed. N95 mask on the patient. RN escorted the patient through the back door where his brother Monik was waiting.
--- NOTE | 2020-09-23 13:03 | Pulmonology Progress Note ---
Subjective ROS Limited/Unobtainable: No Constitutional: Denies: fever, chills Gastrointestinal/Abdominal: Denies: nausea, vomiting, diarrhea Musculoskeletal: Denies: pain Allergies: Coded Allergies: No Known Allergies (Unverified , 09/14/20) Subjective AFVSS on RA Feels better Denies SOB or cough no FC no CP GI recs noted CT noted Objective Last 24 Hour Vital Signs Date Time Temp Pulse Resp B/P (MAP) Pulse Ox O2 Delivery O2 Flow Rate FiO2 09/23/20 08:00 99.1 96 18 135/78 (97) 97 09/23/20 04:00 99.1 86 18 116/66 (83) 96 09/23/20 00:00 97.7 85 20 141/60 (87) 95 09/22/20 21:00 Room Air 09/22/20 20:00 97.7 82 18 111/66 (81) 94 09/22/20 19:10 76 18 94 Room Air 21 09/22/20 19:10 94 Room Air 21 09/22/20 16:00 97.7 85 18 112/71 (85) 97 Intake and Output 09/22/20 09/23/20 19:00 07:00 Intake Total 600 ml Balance 600 ml Intake Oral 600 ml # Voids 5 2 General Appearance: no acute distress HEENT: normocephalic, atraumatic, anicteric, mucous membranes moist, PERRL, other - O2 3 L-4 L via NC Respiratory: lungs clear Cardiovascular: normal rate, regular rhythm Abdomen: soft, non tender Extremities: no edema, pedal pulses normal Skin: other - BLE reddishn/brown hyperpigmentation 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 grossly normal, no motor/sensory deficits, alert, oriented x 3, responsive Musculoskeletal: normal muscle bulk Laboratory Tests 09/22/20 20:07: POC Whole Blood Glucose 107H 09/23/20 05:47: POC Whole Blood Glucose [Pending] 09/23/20 11:38: POC Whole Blood Glucose 88 Current Medications Medications (Trade) Dose Ordered Sig/Polo Route PRN Reason Start Time Stop Time Status Last Admin Dose Admin Acetaminophen (Tylenol) 650 mg Q4H PRN ORAL Mild Pain (Pain Scale 1-3) 09/14/20 22:15 10/14/20 22:14 09/15/20 16:32 Acetaminophen (Tylenol) 650 mg Q4H PRN ORAL Temp >100.5 09/14/20 22:15 10/14/20 22:14 Albuterol Sulfate (Proventil MDI) 2 puff Q4H PRN INH Shortness of Breath 09/14/20 22:15 12/13/20 22:14 Ascorbic Acid (Vitamin C) 500 mg DAILY ORAL 09/15/20 09:00 10/15/20 08:59 09/23/20 08:45 Dextrose (Dextrose 50%) 25 ml Q30M PRN IV Hypoglycemia 09/14/20 23:00 12/13/20 22:59 Dextrose (Dextrose 50%) 50 ml Q30M PRN IV Hypoglycemia 09/14/20 23:00 12/13/20 22:59 Diphenhydramine HCl (Benadryl) 25 mg EVERY 4 HOURS PRN IVP Itching 09/14/20 22:15 10/14/20 22:14 09/20/20 22:28 Docusate Sodium (Colace) 250 mg DAILY ORAL 09/15/20 09:00 10/15/20 08:59 09/23/20 08:45 Enoxaparin Sodium (Lovenox) 60 mg DAILY SUBQ 09/21/20 09:00 12/14/20 08:59 09/23/20 08:47 Guaifenesin (Mucinex ER) 600 mg TWICE A DAY ORAL 09/15/20 09:00 12/14/20 08:59 09/23/20 08:45 Guaifenesin/ Codeine Phosphate (Robitussin with codeine) 5 ml EVERY 4 HOURS PRN ORAL For Cough 09/14/20 22:15 10/14/20 22:14 09/21/20 02:02 Guaifenesin/ Dextromethorphan (Robitussin DM Syrup) 5 ml Q4H PRN ORAL For Cough 09/14/20 22:15 12/13/20 22:14 Insulin Aspart (NovoLOG) BEFORE MEALS AND HS SUBQ 09/15/20 06:30 12/14/20 06:29 09/21/20 21:20 Ipratropium [place] (Atrovent Inh) 1 puffs EVERY 4 HOURS PRN INH Shortness of Breath 09/14/20 22:15 10/14/20 22:14 09/15/20 17:53 Multivitamins (Multivitamins) 1 tab DAILY ORAL 09/15/20 09:00 10/15/20 08:59 09/23/20 08:45 Ondansetron HCl (Zofran) 4 mg EVERY 4 HOURS PRN IVP Nausea & Vomiting 09/14/20 22:15 10/14/20 22:14 Pantoprazole (Protonix) 40 mg DAILY ORAL 09/22/20 09:00 10/22/20 08:59 09/23/20 08:45 Vitamin D (Vitamin D) 400 unit DAILY ORAL 09/15/20 09:00 10/15/20 08:59 09/23/20 08:45 Zinc Sulfate (Zinc Sulfate) 220 mg DAILY ORAL 09/15/20 09:00 12/14/20 08:59 09/23/20 08:45 Assessment/Plan Problems: (1) Loculated pleural effusion (2) Occult blood positive stool (3) Hypoxia (4) Coronavirus infection Assessment/Plan Optimize pulmonary hygiene/mobilize as tolerated PRN O2 PRN HFA's Continue DEX D9/10 S/P IVERMECTIN REM not approved Monitor for recurrence of effusion F/U surgery recs F/U GI recs, no paln for EGD CT CAP reviewed Elevated CEA with loculated effusions concerning for an underlying malignancy, patient will need an extensive outpatient w/u, including PET/CT, onc and thoracic evaluation and likely VATS pleurodesis and pleural biopsy. I explained this in depth to the the patient who verbalized understanding. SW will provide patient with a list of county resources Monitor volumes and renal function DVT Px: LMWH FC Dispo planning home --> SW Involved, patient will need F/U at [facility] Nish Alonso MD Sep 23, 2020 13:03
--- NOTE | 2020-09-23 13:50 | NUR ---
[employer] SI: Respiratory Failure, COVID PNA T 98.8, HR 105, RR 18, BP 138/85, O2 sat 97% cxray Slightly increased rt midlung infiltrate IS: Protonix PO QD Lovenox sq qd Vit D PO QD Med/Surg Status
--- NOTE | 2020-09-27 12:26 | Discharge Summary ---
Discharge Summary Discharge Summary _ Date of admission: 09/14/2020 Patient left AGAINST MEDICAL ADVICE on 09/23/2020 History of Present Illness and Brief Hospital Course Mr. Murphy is a 59-year-old male with history of type 2 diabetes who presented to the ED for evaluation of cough and shortness of breath x2 weeks. Patient also reported 2 months history of hiccups and some chest pain and 2 weeks history of coughing and nonbloody diarrhea. Patient arrived saturating at 90% on room air. Patient tested positive for COVID-19 via rapid gene assay. Chest x-ray revealed large left pleural effusion. CT angio showed no definite evidence of acute pulmonary embolus or other acute thoracic vascular pathology. Multifocal groundglass opacities were found in the right lung and massive left pleural effusion. Given the presence of considerable pleural thickening, it was presumably chronic and likely loculated. Patient received Unasyn, vancomycin, dexamethasone, and Lovenox in ER and was admitted to the hospital for further management. For his COVID-19, patient was given supplemental oxygen. Remdesivir was considered however was not used due to elevated LFTs. He received dexamethasone as well. Given large pleural effusion, 150 mL of fluid was removed via thoracentesis. Chest x-ray was repeated which showed improvement of pleural effusion. The pleural fluid was noted to be exudative. A repeat CT of chest and abdomen/pelvis revealed groundglass peripheral infiltrates, mildly loculated [id number] left pleural effusion with slightly thickened and enhancing pleural, gallstones, diverticulosis without diverticulitis, and cirrhotic changes of the liver. His stool occult blood was positive on 09/19/2020, however a repeat test was negative on 09/21/2020. His H&H was stable and GI procedures were not indicated. PPI was initiated. On 09/23/2020, patient expressed his wish to leave the hospital. Patient did not complete 10-day course of dexamethasone. However, patient signed AMA and left. Patient was medically stable. Consultants: Infectious disease Dr. Varner Surgery Dr. Conway Final diagnoses COVID-19 pneumonia Diabetes mellitus Cirrhosis Loculated pleural effusion Occult blood positive stool Hypoxia I have been assigned to dictate discharge summary for this account. I was not involved in the patient's management Alan Martinez Sep 27, 2020 12:26
== END 2020-09-23 13:05 | disposition left against medical advice (07) | DRG 137 ==
LOC: EMR 13:23 → 2E 14:59 → EDBEDREQ 18:04 → 2E 20:23 → 4E 09-20 15:50
PROC: 0W9B3ZZ Drainage of Left Pleural Cavity, Percutaneous Approach (ICD-10-PCS; principal; 2020-09-14)
DX: U07.1 COVID-19 (principal); J12.82 Pneumonia due to coronavirus disease 2019; R09.02 Hypoxemia; K74.60 Unspecified cirrhosis of liver; E11.9 Type 2 diabetes mellitus without complications; J90 Pleural effusion, not elsewhere classified; D64.9 Anemia, unspecified
CPT/HCPCS: 36415; 71045; 71260; 71275; 74177; 76942; 80048; 80053; 82270; 82308; 82378; 82728; 82746; 82962; 83036; 83520; 83540; 83550; 83605; 83615; 84443; 84484; 85007; 85025; 85379; 85610; 85651; 86140; 87040; 87070; 87205; 88104; 89051; 93005; 93970; 96365; 96366; 96372; 96375; 99291; J1815; U0002